=== PATIENT | female | born 1965 | race Caucasian/White ===

== ENCOUNTER → 2016-10-13 | Outpatient (CLI) | payer OTHER ==
[~2016-10-13] MED LIST: ACET-1311 PO; BENA20TA14 PO; BUTA1CAP17 PO; DICY20TA10 PO; FERR1TAB23 PO; FOLI1TAB7 PO; LAMO200T38 PO; LAMO25TA PO; LORA1TAB13 PO; MTR/600 PO; MULT-506 PO; OXYC-57 PO; PARO1TAB29 PO; PROM25TA9 PO; TOPI100T20 PO; TRAZ50TA35 PO
--- NOTE | 2016-10-13 12:07 | DIAGNOSTIC IMAGING REPORT ---
LEFT ANKLE 3 VIEWS HISTORY: LEFT ANKLE PAIN/FALL COMPARISON: None. FINDINGS: There is no fracture or dislocation. Soft tissues are unremarkable. No radiopaque foreign bodies. Plantar heel spur. IMPRESSION: No fractures. Electronically signed by: Braulio Vann M.D. 10/13/2016 12:06 PM Dictated Date/Time: 10/13/2016 12:03 PM
== END | disposition home or self-care (01) ==
LOC: C.RAD1850 11:51
PROVIDERS: ATTEND Student in an Organized Health Care Education/Training Program
DX: S99.912A Unspecified injury of left ankle, initial encounter (principal); X58.XXXA Exposure to other specified factors, initial encounter

== ENCOUNTER 2017-01-03 07:16 | Emergency (ER) | payer OTHER ==
[~2017-01-03] VITALS: Ht 167.6 cm; Wt 88.6 kg
[2017-01-03 07:22] VITALS: TEMP 36.5; Ht 167.6 cm; Wt 88.6 kg
[2017-01-03] MEDS ORDERED: ONDANSETRON INJ 2 MG/ML 2 ML VIAL IV STA (07:34)
[2017-01-03 07:45] LABS: BASO % 0.2 %; BASO ABS # 0.01 K/uL (0-0.2); COMPLETE YES; EOS % 1.2 %; HEMATOCRIT 39.3 % (37-47); IG% 0.2 %; LYMPH % 27.1 %; LYMPH ABS # 1.14 K/uL (1.2-3.4); MEAN CELL VOLUME 88.9 fL (80-100); MEAN CORPUSCULAR HEMOGLOBIN 29.6 pg (25-34); MEAN CORPUSCULAR HGB CONC 33.3 g/dl (32-36); MONO % 7.1 %; NEUT % 64.2 %; PLATELET COUNT 248 K/uL (130-400); RED BLOOD COUNT 4.42 M/uL (4.2-5.4)
[2017-01-03] MEDS ORDERED: SODIUM CHLORIDE 0.9% 1000ML 1,000 ML IV ONE (07:45)
[2017-01-03 07:53] LABS: URINE APPEARANCE CLEAR (CLEAR); URINE BILIRUBIN NEG (NEG); URINE COLOR YELLOW; URINE EPITHELIAL CELL AUTO >30 /lpf (0-5); URINE NITRITE NEG (NEG); URINE PH 5.5 (4.5-7.5); URINE SPECIFIC GRAVITY 1.021 (1.000-1.030); UROBILINOGEN NEG (NEG)
[2017-01-03 07:54] LABS: MANUAL MICROSCOPIC REQUIRED? NO; REVIEW REQ? YES
--- NOTE | 2017-01-03 07:58 | DIAGNOSTIC IMAGING REPORT ---
SINGLE VIEW CHEST CLINICAL HISTORY: Change in mental status. Vomiting. FINDINGS: An AP, portable, upright chest radiograph is compared to study dated 08/21/2015. The examination is degraded by portable technique and patient rotation. The cardiomediastinal silhouette is unremarkable. The lungs and pleural spaces are clear. No pneumothorax is seen. The bony thorax is grossly intact. IMPRESSION: No active disease in the chest. Electronically signed by: Florencio Roth M.D. 01/03/2017 7:57 AM Dictated Date/Time: 01/03/2017 7:57 AM
[2017-01-03 08:04] LABS: ALT/SGPT 21 U/L (12-78); BLOOD UREA NITROGEN 19 mg/dl (7-18); BUN/CREATININE RATIO 20.3 (10-20); CALCIUM 8.9 mg/dl (8.5-10.1); CARBON DIOXIDE 24 mmol/L (21-32); CHLORIDE 101 mmol/L (98-107); CREATININE 0.93 mg/dl (0.60-1.20); GLUCOSE 146 mg/dl (70-99); POTASSIUM 3.4 mmol/L (3.5-5.1); SODIUM 135 mmol/L (136-145)
[2017-01-03 08:07] LABS: ALKALINE PHOSPHATASE 78 U/L (45-117); AST/SGOT 16 U/L (15-37)
[2017-01-03 08:08] LABS: BENZODIAZEPINE, URINE NEG (NEG); COCAINE,URINE NEG (NEG); PHENCYCLIDINE, URINE NEG (NEG)
--- NOTE | 2017-01-03 08:16 | DIAGNOSTIC IMAGING REPORT ---
HEAD WITHOUT CONTRAST (CT) CLINICAL HISTORY: 51 years-old Female with AMS. Acute altered mental status TECHNIQUE: Multiple axial CT images of the head were obtained without contrast. A dose lowering technique was utilized adhering to the principles of ALARA. CT DOSE: 537.48 mGy.cm COMPARISON: Head CT 08/27/2014. FINDINGS: No acute intracranial hemorrhage, midline shift, mass, large territorial ischemia or abnormal extra-axial collection. 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 The calvarium is intact. The mastoid air cells, and middle ear cavities are clear. Polypoid mucosal thickening of the right maxillary antrum measures 3.5 x 1.8 cm. Metopic suture noted. IMPRESSION: 1. No acute intracranial abnormality. 2. Subependymal smith matter heterotopia. 3. Polypoid mucosal disease of the right maxillary sinus. The above report was generated using voice recognition software. It may contain grammatical, syntax or spelling errors. Electronically signed by: Brendon Garcia M.D. 01/03/2017 8:15 AM Dictated Date/Time: 01/03/2017 8:03 AM
--- NOTE | 2017-01-03 09:09 | EMERGENCY ROOM VISIT NOTE ---
ED Visit Note First contact with patient: 07:19 51-year-old female with altered mental status was fully evaluated by Elton Dorsey PA-C. Please see his note. I also independently evaluated the patient. Upon my evaluation the patient was clear and conversant. She admits that she may have taken too many anti-seizure medications. She believes that she just needs sleep. Multiple labs were evaluated. The patient may have a urinary tract infection.
[2017-01-03] MEDS ORDERED: ONDA4TAB10 SL (09:20)
[2017-01-03 09:29] VITALS: BP 155/101; PULSE 85; O2SAT 96
--- NOTE | 2017-01-03 10:59 | EMERGENCY ROOM VISIT NOTE ---
ED Visit Note First contact with patient: 07:19 Chief Complaint: Nausea and vomiting. History of Present Illness: Ms. Rutledge is a 51-year-old white female who was brought into the ED accompanied by her fianc with nausea and vomiting. Historically patient has a history of unspecified heart disease, hypertension, epilepsy/seizure disorder. Fianc reports patient has been feeling well and been her normal self over the last few days. Last night he reports he went to bed at approximately 11 PM and the patient was complaining of a headache. When he awoke this morning he went downstairs and found the patient lying on a recliner and complained of nausea. He reports he drove the patient into the ED and during his transport she had started to vomit but he reports she was holding his hand and talking to him. When the patient arrived in the emergency department I immediately saw her and she initially reported that she no longer had a headache but then reports that it was back and on the third attempt to ascertain if she was experiencing any headache she reported no. Her only complaint was nausea. She was only intermittently verbally communicative with me. I did note I left the room and came back to look at her EKG and when I arrived she was talking normally in a law soft speech with her fianc. There was question the patient had taken too much of her Lamictal; the bottle she presents with was from June 2016 and there were 10 tablets left in the bottle ; this medication was prescribed twice a day. On reevaluation patient was sitting upright and talking appropriately. She was pleasant and cooperative and reported resolution of nausea and vomiting. She confirms she is no longer having a headache and is feeling well. She has no other complaints and denies fevers, chills, sweats, upper respiratory tract symptoms, chest pain, shortness of breath, palpitations, abdominal pain, diarrhea, constipation, rectal bleeding, black/tarry stools, urinary symptoms, back pain, flank pain. Review of Systems: As noted above in History of Present Illness; all body systems were reviewed with the patient and found to be negative. Past Medical History: As noted above and migraine headaches, Lyme's disease and status post cholecystectomy. Current Medications: Medications Dose Route/Sig Max Daily Dose Days Date Category Dose Instructions Fioricet (Hddvshrwcw-Tokzmyneeniru-Mcwyb) 1 Cap Cap 1 Cap PO DAILY PRN 10/29/14 Reported Trazodone (Trazodone HCl) 50 Mg Tab 50 Mg PO HS 10/29/14 Reported Topamax (Topiramate) 100 Mg Tab 100 Mg PO BID 10/29/14 Reported Phenergan (Promethazine HCl) 25 Mg Tab 25 Mg PO Q6H PRN 10/29/14 Reported Paxil (Paroxetine HCl) 40 Mg Tab 40 Mg PO QAM 10/29/14 Reported Percocet 5MG/325MG (Oxycodone/Acetaminophen) Tab 1-2 Tablets PO Q4 PRN 10/29/14 Reported PAIN Lorazepam 1 Mg Tab 1 Tab PO BID PRN 30 10/29/14 Reported Lamictal (Lamotrigine) 200 Mg Tab 200 Mg PO BID 10/29/14 Reported Lamictal (Lamotrigine) 25 Mg Tab 75 Mg PO BID 10/29/14 Reported Folvite (Folic Acid) 1 Mg Tab 1 Mg PO QAM 10/29/14 Reported Dicyclomine Hcl 20 Mg Tab 1 Tab PO TID 10/29/14 Reported Lotensin (Benazepril HCl) 20 Mg Tab 20 Mg PO QAM 10/29/14 Reported Tylenol (Acetaminophen) 325 Mg Tab 650 Mg PO Q6 PRN 10/29/14 Reported Ibuprofen 600 Mg Tab 600 Mg PO UD PRN 08/27/14 Reported Iron (Ferrous Sulfate) Unknown Strength Tab Unknown Dose PO QPM 08/27/14 Reported Multivitamin (Multivitamins) Tab 1 Tab PO QAM 06/15/12 Reported Allergies to Medications: Erythromycin. Social History: Patient is not employed; she feels safe in her home environment ; she denies tobacco and alcohol use. Physical Examination: Vital Signs: Date Time Temp Pulse Resp B/P (MAP) Pulse Ox O2 Delivery O2 Flow Rate FiO2 01/03/17 09:29 85 16 155/101 96 01/03/17 08:07 81 14 161/101 98 01/03/17 07:27 77 01/03/17 07:22 36.5 75 24 173/112 96 Room Air GENERAL: 51-year-old female in no acute distress, nontoxic-appearing, afebrile and hemodynamically stable. NEUROLOGICAL: Patient's eyes were closed and she was intermittently verbally communicative and oriented to herself and fianc. Not answering questions. SKIN: Warm, dry and pink. No soft tissue eruptions or trauma noted. HEENT: Atraumatic and normocephalic. Skull: No bony deformity, crepitus, swelling or ecchymosis. No raccoon's eyes or can signs. No drainage from the ears of the nostril; no hemotympanum. No facial bony tenderness, swelling or ecchymosis. PERRLA. Sclera white and conjunctiva pink. No drainage from naris. Airway was patent. Pharynx is nonerythematous or edematous. Speech occasionally clear but mostly garbled. No lymphadenopathy. Trachea midline. No jugular venous distention. No carotid bruits. BACK: No tenderness over the bony spine. No nuchal rigidity or meningismus. THORAX: Lungs sounds are clear to auscultation and equal bilaterally with symmetrical chest wall. No wheezing, rales or rhonchi. HEART: Regular rate and rhythm. No gallops, rubs or murmurs are appreciated. ABDOMEN: Flat, soft and nontender. Positive bowel sounds in all quadrants. No guarding, rigidity or organomegaly. EXTREMITIES: Moves all extremities well on command and with purpose. All distal neurovascular statuses are intact and equal bilaterally. No calf tenderness or cords. ED Course: Patient is assessed as noted above. Patient's medication list was reviewed. Laboratory Testing: Test 01/03/17 07:24 01/03/17 07:27 01/03/17 07:30 01/03/17 07:34 Range/Units White Blood Count 4.20 4.8-10.8 K/uL Red Blood Count 4.42 4.2-5.4 M/uL Hemoglobin 13.1 12.0-16.0 g/dL Hematocrit 39.3 37-47 % Mean Corpuscular Volume 88.9 80-100 fL Mean Corpuscular Hemoglobin 29.6 25-34 pg Mean Corpuscular Hemoglobin Concent 33.3 32-36 g/dl Platelet Count 248 130-400 K/uL Mean Platelet Volume 9.0 7.4-10.4 fL Neutrophils (%) (Auto) 64.2 % Lymphocytes (%) (Auto) 27.1 % Monocytes (%) (Auto) 7.1 % Eosinophils (%) (Auto) 1.2 % Basophils (%) (Auto) 0.2 % Neutrophils # (Auto) 2.69 1.4-6.5 K/uL Lymphocytes # (Auto) 1.14 1.2-3.4 K/uL Monocytes # (Auto) 0.30 0.11-0.59 K/uL Eosinophils # (Auto) 0.05 0-0.5 K/uL Basophils # (Auto) 0.01 0-0.2 K/uL RDW Standard Deviation 43.8 36.4-46.3 fL RDW Coefficient of Variation 13.5 11.5-14.5 % Immature Granulocyte % (Auto) 0.2 % Immature Granulocyte # (Auto) 0.01 0.00-0.02 K/uL Sodium Level 135 136-145 mmol/L Potassium Level 3.4 3.5-5.1 mmol/L Chloride Level 101 98-107 mmol/L Carbon Dioxide Level 24 21-32 mmol/L Anion Gap 10.0 3-11 mmol/L Blood Urea Nitrogen 19 7-18 mg/dl Creatinine 0.93 0.60-1.20 mg/dl Est Creatinine Clear Calc Drug Dose 82.0 ml/min Estimated GFR () 83.6 Estimated GFR (Non- 72.2 BUN/Creatinine Ratio 20.3 10-20 Random Glucose 146 70-99 mg/dl Calcium Level 8.9 8.5-10.1 mg/dl Total Bilirubin 0.3 0.2-1 mg/dl Direct Bilirubin < 0.1 0-0.2 mg/dl Aspartate Amino Transf (AST/SGOT) 16 15-37 U/L Alanine Aminotransferase (ALT/SGPT) 21 12-78 U/L Alkaline Phosphatase 78 45-117 U/L Total Protein 9.3 6.4-8.2 gm/dl Albumin 4.1 3.4-5.0 gm/dl Bedside Troponin I < 0.030 0-0.045 ng/ml Bedside Glucose 148 70-90 mg/dl Urine Color YELLOW Urine Appearance CLEAR CLEAR Urine pH 5.5 4.5-7.5 Urine Specific Ione 1.021 1.000-1.030 Urine Protein NEG NEG Urine Glucose (UA) NEG NEG Urine Ketones NEG NEG Urine Occult Blood NEG NEG Urine Nitrite NEG NEG Urine Bilirubin NEG NEG Urine Urobilinogen NEG NEG Urine Leukocyte Esterase MODERATE NEG Urine WBC (Auto) 5-10 0-5 /hpf Urine RBC (Auto) 0-4 0-4 /hpf Urine Hyaline Casts (Auto) 1-5 0-5 /lpf Urine Epithelial Cells (Auto) >30 0-5 /lpf Urine Bacteria (Auto) 1+ NEG Urine Yeast (Auto) NONE PRSENT Urine Opiates Screen NEG NEG Urine Methadone, Qualitative NEG NEG Urine Barbiturates NEG NEG Urine Phencyclidine (PCP) Level NEG NEG Ur Amphetamine/Methamphetamine NEG NEG MDMA (Ecstasy) Screen NEG NEG Urine Benzodiazepines Screen NEG NEG Urine Cocaine Metabolite NEG NEG Urine Marijuana (THC) NEG NEG Urine Culture: Pending Chest X-Ray: Was reviewed by myself and read by the radiologist and shows no acute infiltrates, effusions or pneumothorax. Normal heart silhouette and bony anatomy. Head CT: Shows no acute intracranial abnormality, subependymal smith matter heterotopia, polypoid mucosal disease of the right maxillary sinus. Patient was hydrated with normal save saline and received 4 mg of Zofran IV for nausea/vomiting. Patient was reassessed multiple times during her stay in the emergency department. Patient's case was reviewed with Dr. Benavides; inability assessed the patient we agreed on diagnostic approach, treatment, disposition and plan Patient was educated about today's findings and instructed on her treatment plan ; she verbalized understanding and agreement with this plan. Clinical Impression: Vomiting. Transient altered mental status. Decision-Making: Initially my differential diagnosis I considered intracranial bleed, increased intercranial pressure, pancreatitis, pyelonephritis, medication reaction, medication overdose, and other causes. Disposition: Patient discharged home in stable condition accompanied by her fiance; prior to departure she was reassessed and subjectively reported that she was pain and symptom-free. Plan: Patient was encouraged to continue her current medications as prescribed. Patient was prescribed Zofran 4 mg every 6 hours as needed for nausea/vomiting. Patient was encouraged to stay well-hydrated with increased clear fluids. Patient is encouraged to bland diet for the next 48 hours. Patient was encouraged to contact her PCP and request follow-up care and treatment. Patient was encouraged return ED for return of nausea/vomiting, fevers, uncontrolled pain or any new/concerning symptoms.
== END 2017-01-03 09:30 | disposition home or self-care (01) ==
LOC: C.EDB 07:17
DX: R11.10 Vomiting, unspecified (principal); R41.82 Altered mental status, unspecified; I10 Essential (primary) hypertension; G40.909 Epilepsy, unspecified, not intractable, without status epilepticus; I51.9 Heart disease, unspecified; Z86.19 Personal history of other infectious and parasitic diseases; Z90.49 Acquired absence of other specified parts of digestive tract; Z88.3 Allergy status to other anti-infective agents; Z79.899 Other long term (current) drug therapy

== ENCOUNTER 2022-06-03 16:55 | Inpatient (IN) ==
--- NOTE | 2022-06-03 17:10 | ED Triage Note ---
Date of Service June 03, 2022 History of Present Illness This patient was briefly evaluated while in triage. An abbreviated physical exam was performed. This patient is a 56-year-old Female who presents to the ED for evaluation of had a tick bite one week ago-behind left knee c/o illness x 2 days, back and joint pain, fevers 102, vomiting can't keep fluids or meds down Seizure d/o, MCTD, Sjogrens,HTN, on a biologic Physical Exam GENERAL: Ill appearing, seated in a wheelchair, hypotensive, T37.8 CARDIOVASCULAR: tachycardic RESPIRATORY: CTA ABDOMEN: BS x 4. Nontender to palpation. Initial orders for labs and / or imaging were placed and patient was placed in the waiting area until a bed is available. Please see further documentation for the full ED course.
[2022-06-03] MEDS ORDERED: KETOROLAC TROMETHAMINE 15 MG/ML VIAL IV STA (17:22)
[2022-06-03] MEDS ORDERED: SODIUM CHLORIDE 0.9% 1000ML 1,000 ML IV ONE ×2 (17:22→17:25)
--- NOTE | 2022-06-03 17:22 | Emergency Department Note ---
ED Provider Note History of Present Illness Chief Complaint: Fever Stated Complaint: TICK BITE A WK AGO,LETHARGIC,FEVER,BODY ACHES Time Seen by Provider: 06/03/22 17:18 Source: patient Mode of arrival: ambulatory Limitations: no limitations This patient is a 56-year-old female who presents to the emergency department for evaluation of fever, body aches and vomiting. She reports that she was bit by a tick 2 weeks ago and was unable to remove the entire tick at that time. She did notice a bull's-eye rash in the area of the tick bite. 2 days ago, she developed vomiting, body aches, fevers and joint swelling. She reports she is noticing the swelling in her hands and ankles. She reports that she has burning with urination and describes this as feeling hot. She is very nauseous and has been unable to keep anything down including her medications. She reports that her pain is primarily in her low back into her hips and down her legs. Home Medications Medication Instructions Recorded Confirmed Type hydrocodone 5 mg-acetaminophen 325 1 tab PO Q8H PRN Pain 02/23/19 06/03/22 Hist ory mg tablet losartan 50 mg-hydrochlorothiazide 1 tab PO QAM 02/23/19 06/03/22 History 12.5 mg tablet multivitamin (Daily Multi-Vitamin 1 tab PO QAM 02/23/19 06/03/22 History tablet) lamotrigine 25 mg disintegrating 25 mg PO DAILY PRN aura, anxiety 06/19/20 06/03/22 Rx tablet 30 days #30 tabs baclofen 10 mg tablet 10 mg PO BID PRN muscle spasm #60 05/18/21 06/03/22 Rx tabs oxcarbazepine 300 mg tablet 300 mg PO BID #60 tabs 08/18/21 06/03/22 Rx (Trileptal) galcanezumab-gnlm 120 mg/mL 120 mg subcut MONTHLY #1 mL 01/12/22 06/03/22 Rx subcutaneous pen injector (Emgality Pen) lamotrigine 150 mg tablet 300 mg PO BID 90 days #360 tabs 02/18/22 06/03/22 Rx gabapentin 300 mg capsule 300 mg PO TID 03/22/22 06/03/22 History lorazepam 0.5 mg tablet 0.5 mg PO DAILY PRN Anxiety 03/22/22 06/03/22 History omeprazole 20 mg capsule,delayed 20 mg PO QAM 03/22/22 06/03/22 History release ondansetron 4 mg disintegrating 4 mg translingual TID PRN nausea 03/22/22 06/03/22 History tablet and vomiting sertraline 100 mg tablet 100 mg PO QAM 03/22/22 06/03/22 History tofacitinib 11 mg tablet,extended 11 mg PO HS 03/22/22 06/03/22 History release 24 hr (Xeljanz XR) rizatriptan 10 mg tablet (Maxalt) 10 mg PO UD PRN migraine headache 05/12/22 06/03/22 History Allergies Allergy/AdvReac Type Severity Reaction Status Date / Time erythromycin base Allergy Intermediate RASH Verified 06/03/22 18:28 Past Med/Surg History Medical History Anemia hx Depression with anxiety Epilepsy most recent seizure 03/2021 History of COVID-19 09/2021, home test, tx w/paxlovid>resolved Hypertension Migraine without aura, not intractable, without status migrainosus Mixed connective tissue disease Raynauds disease Sjogren's disease Surgical History History of esophagogastroduodenoscopy (EGD) History of hysteroscopy Hx laparoscopic cholecystectomy Hx of colonoscopy S/P tubal ligation Family History Sister Myocardial infarction Father Myocardial infarction Denies family history of Ovarian cancer Prostate cancer Breast cancer Colorectal cancer Social History Smoking Status: Never smoker Second Hand Exposure: No; Do You Dip or Chew Tobacco: No; Hx Alcohol Use: No Hx Substance Use: No Preferred Language: Kinyarwanda Communication Ability: Effective Insurance Sales Executive Required: No Beliefs That Will Affect Care: None Current Living Situation: Alone Feels Safe at Home: Yes Assistive Devices: Denture - Upper and Denture - Lower Physical Exam Vital Signs Vital Signs - 24 hr 06/03/22 17:07 06/03/22 18:00 06/03/22 18:24 Temperature 37.8 C H Temperature Source Oral Pulse Rate 104 H Pulse Rate [Apical] 95 H Pulse Rate from SpO2 Sensor Respiratory Rate 20 22 Respiratory Effort / Characteristics Non-Labored Spontaneous Respiratory Depth Normal Respiratory Pattern Regular Blood Pressure 94/61 L Blood Pressure [Left Arm] 113/65 Blood Pressure Mean 72 Blood Pressure Mean [Left Arm] 81 Pulse Oximetry 93 93 Oxygen Delivery Method Room Air Room Air Room Air Oxygen Flow Rate Sepsis Recent Fever Within 48 Hours Yes Sepsis New/Unexplained Change in Mental Status No Sepsis Action Taken by Nursing Physician Notified 06/03/22 18:09 06/03/22 18:30 06/03/22 19:00 Temperature Temperature Source Pulse Rate 94 H 91 H 90 Pulse Rate [Apical] Pulse Rate from SpO2 Sensor 94 H 91 H 91 H Respiratory Rate 26 H 23 22 Respiratory Effort / Characteristics Respiratory Depth Respiratory Pattern Blood Pressure Blood Pressure [Left Arm] Blood Pressure Mean Blood Pressure Mean [Left Arm] Pulse Oximetry 92 95 92 Oxygen Delivery Method Room Air Oxygen Flow Rate Sepsis Recent Fever Within 48 Hours Sepsis New/Unexplained Change in Mental Status Sepsis Action Taken by Nursing 06/03/22 19:02 06/03/22 19:30 06/03/22 20:00 Temperature Temperature Source Pulse Rate 91 H 91 H Pulse Rate [Apical] Pulse Rate from SpO2 Sensor 90 93 H 91 H Respiratory Rate 21 18 Respiratory Effort / Characteristics Respiratory Depth Respiratory Pattern Blood Pressure 97/61 L 95/60 L Blood Pressure [Left Arm] Blood Pressure Mean 73 71 Blood Pressure Mean [Left Arm] Pulse Oximetry 94 90 92 Oxygen Delivery Method Oxygen Flow Rate Sepsis Recent Fever Within 48 Hours Sepsis New/Unexplained Change in Mental Status Sepsis Action Taken by Nursing 06/03/22 20:02 06/03/22 20:19 06/03/22 20:30 Temperature Temperature Source Pulse Rate 88 88 85 Pulse Rate [Apical] Pulse Rate from SpO2 Sensor 88 87 87 Respiratory Rate 14 17 Respiratory Effort / Characteristics Respiratory Depth Respiratory Pattern Blood Pressure 97/59 L Blood Pressure [Left Arm] Blood Pressure Mean 71 Blood Pressure Mean [Left Arm] Pulse Oximetry 90 96 97 Oxygen Delivery Method Nasal Cannula Oxygen Flow Rate 2 Sepsis Recent Fever Within 48 Hours Sepsis New/Unexplained Change in Mental Status Sepsis Action Taken by Nursing VITALS: Vitals are noted on the nurse's note and reviewed by myself. GENERAL: This is a 56-year-old female, ill-appearing, lying flat in bed. SKIN: The skin was without rashes. EARS: External auditory canals clear, tympanic membranes pearly smith without erythema or effusion bilaterally. EYES: Pupils equal round and reactive to light and accommodation. MOUTH: Mucous membranes moist. Tonsils are not enlarged. Petechiae noted in the posterior oropharynx. NECK: Supple without nuchal rigidity. No lymphadenopathy. HEART: Regular rate and rhythm without murmurs gallops or rubs. LUNGS: Clear to auscultation bilaterally without wheezes, rales or rhonchi. No retractions or accessory muscle use. ABDOMEN: Positive bowel sounds x 4. Soft, nontender to palpation. No guarding or rebound tenderness. NEURO: Patient was alert and oriented to person place and time. Course Administered Medications Diclofenac Sodium (Diclofenac Sod 1% Gel 100 Gm Tube) 2 gm EXT TID ARPITA; Protocol Stop: 07/03/22 22:23 Last Admin: 06/03/22 23:24 Dose: 2 gm Documented By: JINA Gabapentin (Gabapentin 300 Mg Cap) 300 mg PO TID ARPITA Stop: 07/03/22 22:23 Last Admin: 06/03/22 23:26 Dose: 300 mg Documented By: JINA Potassium Chloride/Dextrose/Sod Cl (D5w And 1/2nss + 20meq Kcl) 20 meq in 1,000 mls @ 125 mls/hr IV .Q8H [facility]; Protocol Stop: 07/03/22 22:23 Last Admin: 06/03/22 23:29 Dose: 125 mls/hr Documented By: JINA Lamotrigine (Lamotrigine 100 Mg Tab) 300 mg PO BID ARPITA Stop: 07/03/22 22:23 Last Admin: 06/03/22 23:24 Dose: 300 mg Documented By: JINA Lidocaine (Lidocaine 5% 1 Patch) 1 patch TD QPM ARPITA Stop: 07/03/22 22:59 Last Admin: 06/03/22 23:28 Dose: 1 patch Documented By: JINA Oxcarbazepine (Oxcarbazepine 150 Mg Tablet) 300 mg PO BID ARPITA Stop: 07/03/22 22:23 Last Admin: 06/03/22 23:25 Dose: 300 mg Documented By: JINA Discontinued Medications Doxycycline Hyclate (Doxycycline Hyclate 100 Mg Cap) 100 mg PO NOW STA Stop: 06/03/22 19:38 Last Admin: 06/03/22 20:15 Dose: 100 mg Documented By: NHUNG Sodium Chloride (Nss 1000ml) 1,000 mls @ 999 mls/hr IV .Q1H1M ONE Stop: 06/03/22 18:22 Last Infusion: 06/03/22 19:14 Dose: 0 mls/hr Documented By: Admin: 06/03/22 18:06 Dose: 999 mls/hr Documented By: KARISSA Sodium Chloride (Nss 1000ml) 1,000 mls @ 999 mls/hr IV .Q1H1M ONE Stop: 06/03/22 18:25 Last Infusion: 06/03/22 19:14 Dose: 0 mls/hr Documented By: Admin: 06/03/22 18:06 Dose: 999 mls/hr Documented By: KARISSA Promethazine HCl (Phenergan) 12.5 mg in 50.5 mls @ 202 mls/hr IV NOW STA Stop: 06/03/22 19:36 Last Infusion: 06/03/22 20:07 Dose: 0 mls/hr Documented By: Admin: 06/03/22 19:32 Dose: 202 mls/hr Documented By: NHUNG Acetaminophen (Ofirmev) 1,000 mg in 100 mls @ 400 mls/hr IV NOW STA Stop: 06/03/22 19:36 Last Infusion: 06/03/22 19:55 Dose: 0 mls/hr Documented By: Admin: 06/03/22 19:28 Dose: 400 mls/hr Documented By: NHUNG Ceftriaxone Sodium (Rocephin) 2,000 mg in 70 mls @ 140 mls/hr IV NOW STA Stop: 06/03/22 20:06 Last Infusion: 06/03/22 20:48 Dose: 0 mls/hr Documented By: Admin: 06/03/22 20:15 Dose: 140 mls/hr Documented By: NHUNG Ketorolac Tromethamine (Ketorolac Tromethamine 15 Mg/Ml Vial) 15 mg IV NOW STA Stop: 06/03/22 17:23 Last Admin: 06/03/22 18:08 Dose: 15 mg Documented By: KARISSA Ondansetron HCl (Ondansetron Inj 2 Mg/Ml 2 Ml Vial) 4 mg IV NOW STA Stop: 06/03/22 17:26 Last Admin: 06/03/22 18:08 Dose: 4 mg Documented By: KARISSA Medical Decision Making Differential Diagnosis Tickborne illness, viral syndrome, otitis, pharyngitis, pneumonia, influenza, meningitis, urinary tract infection, sepsis, bacteremia, as well as other patho logies. Home Medications was personally reviewed by me Laboratory Data Attestation: I reviewed the patient's lab results. 06/03/22 17:36 06/03/22 17:36 Lab Results 06/03/22 06/03/22 06/03/22 Range/Units 17:10 17:11 17:36 WBC 2.63 L (4.8-10.8) K/ul RBC 4.05 L (4.20-5.40) M/uL Hgb 11.5 L (12.0-16.0) g/dl Hct 34.8 L (37.0-47.0) % MCV 85.9 (80.0-100.0) fL MCH 28.4 (25.0-34.0) pg MCHC 33.0 (32.0-36.0) g/dL RDW Std Deviation 42.3 (36.4-46.3) fL RDW Coeff of [place] 13.5 (11.5-14.5) % Plt Count 164 (130-400) K/uL MPV 9.5 (9.4-12.4) fL Immature Gran % (Auto) 0.0 % Neut % (Auto) 70.8 % Lymph % (Auto) 20.5 % [place] % (Auto) 8.7 % Eos % (Auto) 0.0 % Baso % (Auto) 0.0 % Neut # (Auto) 1.86 (1.40-6.50) K/uL Lymph # (Auto) 0.54 L (1.2-3.4) K/uL [place] # (Auto) 0.23 (0.11-0.59) K/uL Eos # (Auto) 0.00 (0-0.50) K/uL Baso # (Auto) 0.00 (0-0.2) K/uL Immature Gran # (Auto) 0.00 L (0.01-0.20) K/uL Ovalocytes 1+ ESR (0-30) mm/hr Sodium (136-145) mmol/L Potassium (3.5-5.1) mmol/L Chloride (98-107) mmol/L Carbon Dioxide (21-32) mmol/L Anion Gap (3-11) BUN (6-23) mg/dl Creatinine (0.6-1.2) mg/dl Est Cr Clr Drug Dosing Est GFR ( Amer) ml/min Est GFR (Non-Af Amer) ml/min BUN/Creatinine Ratio (10-20) Glucose (70-99(Fasting)) mg/dl Lactate (0.4-2.0) mmol/L Calcium (8.6-10.3) mg/dl Magnesium (1.7-2.4) mg/dl Total Bilirubin (0.2-1.0) mg/dl AST (13-39) U/L ALT (7-52) U/L Alkaline Phosphatase (34-104) U/L Troponin I High Sens (0-14) pg/ml C-Reactive Protein Cancelled Total Protein (6.0-8.3) gm/dl Albumin (3.4-5.0) gm/dl Globulin (2.5-4.0) gm/dl Albumin/Globulin Ratio (0.9-2) Procalcitonin Cancelled Urine Color Urine Appearance (Clear) Urine pH (4.5-7.5) Ur Specific [place] (1.000-1.030) Urine Protein (Negative) Urine Glucose (UA) (Negative) Urine Ketones (Negative) Urine Blood (Negative) Urine Nitrite (Negative) Urine Bilirubin (Negative) Urine Urobilinogen (Negative) Ur Leukocyte Esterase (Negative) Urine WBC (Auto) (0-5) /hpf Urine RBC (Auto) (0-4) /hpf U Hyaline Cast (Auto) (0-5) /lpf U Epithel Cells (Auto) (0-5) /lpf Urine Bacteria (Auto) (Negative) Ur Renal Epithelial Cell (0-5) /lpf Anaplasma Smear See Comment Babesia Smear See Comment Lyme Disease IgG Ab (Negative) Lyme Disease IgM Ab (Negative) SARS-CoV-2 (PCR) (Negative) Influenza Type A (PCR) (Neg) Influenza Type B (PCR) (Neg) RSV (RT-PCR) (Neg) 06/03/22 06/03/22 06/03/22 Range/Units 17:36 17:36 17:36 WBC (4.8-10.8) K/ul RBC (4.20-5.40) M/uL Hgb (12.0-16.0) g/dl Hct (37.0-47.0) % MCV (80.0-100.0) fL MCH (25.0-34.0) pg MCHC (32.0-36.0) g/dL RDW Std Deviation (36.4-46.3) fL RDW Coeff of [place] (11.5-14.5) % Plt Count (130-400) K/uL MPV (9.4-12.4) fL Immature Gran % (Auto) % Neut % (Auto) % Lymph % (Auto) % [place] % (Auto) % Eos % (Auto) % Baso % (Auto) % Neut # (Auto) (1.40-6.50) K/uL Lymph # (Auto) (1.2-3.4) K/uL [place] # (Auto) (0.11-0.59) K/uL Eos # (Auto) (0-0.50) K/uL Baso # (Auto) (0-0.2) K/uL Immature Gran # (Auto) (0.01-0.20) K/uL Ovalocytes ESR 26 (0-30) mm/hr Sodium 137 (136-145) mmol/L Potassium 3.1 L (3.5-5.1) mmol/L Chloride 104 (98-107) mmol/L Carbon Dioxide 27 (21-32) mmol/L Anion Gap 6 (3-11) BUN 22 (6-23) mg/dl Creatinine 1.14 (0.6-1.2) mg/dl Est Cr Clr Drug Dosing Not Reportable Est GFR ( Amer) 63.1 ml/min Est GFR (Non-Af Amer) 54.5 ml/min BUN/Creatinine Ratio 19.3 (10-20) Glucose 142 H (70-99(Fasting)) mg/dl Lactate (0.4-2.0) mmol/L Calcium 9.0 (8.6-10.3) mg/dl Magnesium 1.9 (1.7-2.4) mg/dl Total Bilirubin 0.5 (0.2-1.0) mg/dl AST 20 (13-39) U/L ALT 11 (7-52) U/L Alkaline Phosphatase 72 (34-104) U/L Troponin I High Sens 44.0 H (0-14) pg/ml C-Reactive Protein 7.53 H Total Protein 7.7 (6.0-8.3) gm/dl Albumin 4.0 (3.4-5.0) gm/dl Globulin 3.7 (2.5-4.0) gm/dl Albumin/Globulin Ratio 1.1 (0.9-2) Procalcitonin 0.10 Urine Color Urine Appearance (Clear) Urine pH (4.5-7.5) Ur Specific [place] (1.000-1.030) Urine Protein (Negative) Urine Glucose (UA) (Negative) Urine Ketones (Negative) Urine Blood (Negative) Urine Nitrite (Negative) Urine Bilirubin (Negative) Urine Urobilinogen (Negative) Ur Leukocyte Esterase (Negative) Urine WBC (Auto) (0-5) /hpf Urine RBC (Auto) (0-4) /hpf U Hyaline Cast (Auto) (0-5) /lpf U Epithel Cells (Auto) (0-5) /lpf Urine Bacteria (Auto) (Negative) Ur Renal Epithelial Cell (0-5) /lpf Anaplasma Smear Babesia Smear Lyme Disease IgG Ab Positive A (Negative) Lyme Disease IgM Ab Equivocal A (Negative) SARS-CoV-2 (PCR) (Negative) Influenza Type A (PCR) (Neg) Influenza Type B (PCR) (Neg) RSV (RT-PCR) (Neg) 06/03/22 06/03/22 06/03/22 Range/Units 17:36 18:14 20:02 WBC (4.8-10.8) K/ul RBC (4.20-5.40) M/uL Hgb (12.0-16.0) g/dl Hct (37.0-47.0) % MCV (80.0-100.0) fL MCH (25.0-34.0) pg MCHC (32.0-36.0) g/dL RDW Std Deviation (36.4-46.3) fL RDW Coeff of [place] (11.5-14.5) % Plt Count (130-400) K/uL MPV (9.4-12.4) fL Immature Gran % (Auto) % Neut % (Auto) % Lymph % (Auto) % [place] % (Auto) % Eos % (Auto) % Baso % (Auto) % Neut # (Auto) (1.40-6.50) K/uL Lymph # (Auto) (1.2-3.4) K/uL [place] # (Auto) (0.11-0.59) K/uL Eos # (Auto) (0-0.50) K/uL Baso # (Auto) (0-0.2) K/uL Immature Gran # (Auto) (0.01-0.20) K/uL Ovalocytes ESR (0-30) mm/hr Sodium (136-145) mmol/L Potassium (3.5-5.1) mmol/L Chloride (98-107) mmol/L Carbon Dioxide (21-32) mmol/L Anion Gap (3-11) BUN (6-23) mg/dl Creatinine (0.6-1.2) mg/dl Est Cr Clr Drug Dosing Est GFR ( Amer) ml/min Est GFR (Non-Af Amer) ml/min BUN/Creatinine Ratio (10-20) Glucose (70-99(Fasting)) mg/dl Lactate 1.1 (0.4-2.0) mmol/L Calcium (8.6-10.3) mg/dl Magnesium (1.7-2.4) mg/dl Total Bilirubin (0.2-1.0) mg/dl AST (13-39) U/L ALT (7-52) U/L Alkaline Phosphatase (34-104) U/L Troponin I High Sens (0-14) pg/ml C-Reactive Protein Total Protein (6.0-8.3) gm/dl Albumin (3.4-5.0) gm/dl Globulin (2.5-4.0) gm/dl Albumin/Globulin Ratio (0.9-2) Procalcitonin Urine Color Dark Yellow Urine Appearance Cloudy A (Clear) Urine pH 6.5 (4.5-7.5) Ur Specific [place] 1.029 (1.000-1.030) Urine Protein Trace H (Negative) Urine Glucose (UA) Negative (Negative) Urine Ketones Trace H (Negative) Urine Blood Negative (Negative) Urine Nitrite Positive A (Negative) Urine Bilirubin Negative (Negative) Urine Urobilinogen Negative (Negative) Ur Leukocyte Esterase Trace H (Negative) Urine WBC (Auto) 5-10 H (0-5) /hpf Urine RBC (Auto) 0-4 (0-4) /hpf U Hyaline Cast (Auto) 5-10 H (0-5) /lpf U Epithel Cells (Auto) >30 H (0-5) /lpf Urine Bacteria (Auto) 4+ H (Negative) Ur Renal Epithelial Cell 0-5 (0-5) /lpf Anaplasma Smear Babesia Smear Lyme Disease IgG Ab (Negative) Lyme Disease IgM Ab (Negative) SARS-CoV-2 (PCR) NEGATIVE (Negative) Influenza Type A (PCR) Negative (Neg) Influenza Type B (PCR) Negative (Neg) RSV (RT-PCR) Negative (Neg) Imaging Data Attestation: I personally reviewed and interpreted this imaging study as follows: Radiologist's Impression: Chest X-Ray 06/03/22 17:11 SINGLE VIEW CHEST CLINICAL HISTORY: Sepsis. FINDINGS: An AP, portable, upright chest radiograph is compared to study dated 03/22/2022. Correlation is made with chest CT dated 129 and 13. The cardiomediastinal silhouette is top normal for projection. There is mild elevation of the right hemidiaphragm and dependent atelectasis. The lungs and pleural spaces are otherwise clear. No pneumothorax is seen. There is chronic deformity of the right-sided ribs. IMPRESSION: No active disease in the chest. ACT 112: Negative or not required by law. Electronically signed by: Florencio Roth M.D. 06/03/2022 5:48 PM ECG Data Attestation: I personally reviewed and interpreted this ECG as follows: Indication: + weakness Rate (beats per minute): 97 Rhythm: + sinus rhythm ECG Intervals/blocks: + Left anterior fascicular block and + Right Bundle branch block ECG ST segments: + T-wave inversions Change: the following changes noted (TWI noted) MDM Narrative Continuous monitor worker: Order was placed for continuous monitor worker. Patient was placed on the monitor worker. Patient was noted to be in sinus tachycardia at an initial rate of 103 bpm. The patient is a 56-year-old female who presents today complaining of illness. Patient found to be hypotensive and tachycardic on exam consistent with sepsis. Labs revealed a leukopenia which would be consistent with a tickborne illness. She is mildly anemic with a hemoglobin of 11.5. There are no concerning electrolyte abnormalities, kidney function within normal limits. CRP is elevated at 7.53, troponin elevated at 44. Procalcitonin was within normal limits. Urinalysis was suggestive of infection, positive nitrite and 4+ bacteria. Patient's Lyme testing was positive. Initial smear for anaplasmosis and babesiosis are negative, however further testing is pending. Patient given a dose of ceftriaxone and doxycycline. She was given fluid resuscitation at 30 mL/kg based on her ideal body weight. Patient was given Zofran, Toradol, Phenergan and IV Tylenol for his symptoms. Case was discussed with the [facility] hospitalist service, who agreed to evaluate the patient for further care. Impression Sepsis, Lyme disease, acute, UTI (urinary tract infection) Discharge Plan Visit Data Chief Complaint: Fever Stated Complaint: TICK BITE A WK AGO,LETHARGIC,FEVER,BODY ACHES ED Provider: Karthik Balbuena ED Midlevel Provider: Karina Leon Discharge Problem: Sepsis, Lyme disease, acute, UTI (urinary tract infection) Patient Disposition: Admitted As Inpatient Discharge Instructions Interventions: ED Discharge Assessment Last Done: 06/03/22 22:07
[2022-06-03] MEDS ORDERED: ONDANSETRON INJ 2 MG/ML 2 ML VIAL IV STA (17:25)
--- NOTE | 2022-06-03 17:49 | XRay Report ---
SINGLE VIEW CHEST CLINICAL HISTORY: Sepsis. FINDINGS: An AP, portable, upright chest radiograph is compared to study dated 03/22/2022. Correlation is made with chest CT dated 129 and 13. The cardiomediastinal silhouette is top normal for projectio n. There is mild elevation of the right hemidiaphragm and dependent atelectasis. The lungs and pleura l spaces are otherwise clear. No pneumothorax is seen. There is chronic deformity of the right-sided ribs. IMPRESSION: No active disease in the chest. ACT 112: Negative or not required by law. Electronically signed by: Florencio Roth M.D. 06/03/2022 5:48 PM
[2022-06-03 18:03] LABS: Hematocrit (blood only) 34.8 % (37.0-47.0); Hemoglobin 11.5 g/dl (12.0-16.0); Mean Corpuscular Hemoglobin 28.4 pg (25.0-34.0); Mean Corpuscular Volume 85.9 fL (80.0-100.0); Mean Platelet Volume 9.5 fL (9.4-12.4); Platelet Count 164 K/uL (130-400); RDW Coefficient of Variation 13.5 % (11.5-14.5); RDW Standard Deviation 42.3 fL (36.4-46.3); Red Blood Count 4.05 M/uL (4.20-5.40); White Blood Count 2.63 K/ul (4.8-10.8)
[2022-06-03 18:16] LABS: Alanine Aminotransferase 11 U/L (7-52); Albumin Globulin Ratio 1.1 (0.9-2); Alkaline Phosphatase 72 U/L (34-104); Anion Gap 6 (3-11); Aspartate Aminotransferase 20 U/L (13-39); BUN Creatinine Ratio 19.3 (10-20); Bilirubin,Total 0.5 mg/dl (0.2-1.0); Blood Urea Nitrogen 22 mg/dl (6-23); C Reactive Protein 7.53 mg/dl (0-0.5); Carbon Dioxide 27 mmol/L (21-32); Chloride 104 mmol/L (98-107); Est GFR (African American) 63.1 ml/min; Est GFR (Non-African American) 54.5 ml/min; Globulin 3.7 gm/dl (2.5-4.0); Glucose 142 mg/dl (70-99(Fasting)); Magnesium 1.9 mg/dl (1.7-2.4); Potassium 3.1 mmol/L (3.5-5.1); Sodium 137 mmol/L (136-145); Total Protein 7.7 gm/dl (6.0-8.3)
[2022-06-03 18:33] LABS: Lymphocytes # (auto) 0.54 K/uL (1.2-3.4); Lymphocytes % (auto) 20.5 %; Monocytes # (auto) 0.23 K/uL (0.11-0.59); Monocytes % (auto) 8.7 %; Neutrophils # (auto) 1.86 K/uL (1.40-6.50); Neutrophils % (auto) 70.8 %; Ovalocytes 1+
[2022-06-03 18:39] LABS: Lyme Ab IgG w/WB Rflx Positive (Negative)
[2022-06-03 18:40] LABS: Lyme Ab IgM w/WB Rflx Equivocal (Negative)
[2022-06-03 19:01] LABS: Influenza A virus by PCR Negative (Neg); Influenza B virus by PCR Negative (Neg); RSV by PCR Negative (Neg); SARS CoV2 RNA(COVID-19) Ceph NEGATIVE (Negative)
[2022-06-03] MEDS ORDERED: PROMETHAZINE 12.5 MG/50.5 ML BAG IV STA (19:22)
[2022-06-03] MEDS ORDERED: ACETAMINOPHEN 1,000 MG/100 ML VIAL IV STA (19:22)
[2022-06-03] MEDS ORDERED: cefTRIAXone SODIUM 2,000 MG/70 ML BAG IV STA (19:37)
[2022-06-03] MEDS ORDERED: DOXYCYCLINE HYCLATE 100 MG CAP PO STA (19:37)
--- NOTE | 2022-06-03 20:08 | History & Physical Report ---
Date of Service June 03, 2022 Assessment & Plan (1) Lyme disease, acute: Plan: 56 year old F w/ PmHx Grand mal seizures, sjogren's, migraine without aura, HTN, depression and anxiety admitted for sepsis with positive Lyme and UA. Sepsis with Fevers, Nausea/Vomiting: -WBC 2.63, lactate 1.1, Trop 44, CRP 7.53. -101-103.1F temp at home, BP 90's/50's in the ED. -Lyme IgG positive, IgM equivocal. Anaplasma and Babesia smear negative however will wait for anaplasma and Babesia DNA. -UA positive for LE, Nitrite, 4+ bacteria, epithelial cells - iNfEcTeD uRiNaLySiS -CXR negative. -Possible source of sepsis from lyme vs UTI. -Given CTX 1g x1 in ED as well as dose of 100mg PO doxycycline. -Continue Doxycycline PO 100mg BID if patient can tolerate. -IV Zofran 4mg q6h for nausea. Tylenol PRN for fever and pain. -mIVF D5/0.5NSS w/ 20meq KCl. -Trend daily CBC, BMP, CRP. -Continue to monitor in PCU. Seizure: -History of seizure with patient unable to take lamotrigine or medications for past 2 days. -Will attempt to give orally again pending patient's nausea. -Continue home anti-seizure medications. Lower Back/Sciatic pain: -History of sciatic pain follows with Dr. Beauchamp in the outpatient setting for. -On hydrocodone-acetaminophen, gabapentin and Baclofen at home. -Will hold in the setting of low blood pressures. -Pain management with Tylenol PRN and lidocaine patch. -May restart pain meds/baclofen when BP improve - most likely will improve with hydration. HTN/Hypokalemia: -Hold home losartan-hydrochlorothiazide while BP low. Continue fluid resuscitation with D5/.5NSS w/ 20meq KCl Migraine w/o aura: -Continue home medications. F/E/N/GI: Clears, will advance as tolerated. DVT Prophylaxis: Lovenox 40mg qAM. Code status: Full code. Dispo: PCU. (2) Seizure: (3) Sjogren's disease: (4) Hypertension: (5) Depression with anxiety: (6) Migraine without aura, not intractable, without status migrainosus: (7) Epilepsy: (8) Abnormal urinalysis: History of Present Illness Chief Complaint: Fevers, nausea, vomiting Primary Care Provider: Elan Beauchamp DO Joy is a 56 year old female w/ PmHx Gran mal seizures, sjogren's, migraine without aura, HTN, depression and anxiety who presents to the ED after telehealth visit with family practice for fevers, nausea, vomiting. Patient lives in [facility]. Patient stated that 1.5 weeks prior she had a tick she found on her in the middle of the night as she was going to the bathroom. The tick was located at her L posterior thigh near the popliteal fossa. She attempted to do a blind sweep removal of the tick but had only gotten half of it off. Her boyfriend the next morning and tried to remove the remainder. Later on she developed a Bullseye rash at the area of the bite. 2 days ago she started to develop fevers, chills, nausea. Her fevers ranged from 101 to 103.1F. She also developed L wrist and L ankle pain and swelling. She developed vomiting with this as well and scheduled a telehealth appointment with her family practice at [facility] earlier today. They had directed her to come to the ED due to not being able to keep anything down. Patient is concerned with not being able to keep her lamotrigine down as she is vulnerable to getting her gran mal seizures without taking it and has been unable to take for the past 2 days due to the nausea. She states she also has hot sensation at the urethra with urination. In the ED she was found to be Lyme IgG positive, IgM equivicol. WBC 2.63, Hgb 11.5, Trop 44.0, CRP 7.53. UA Positive Nitrite and LE, +4 Bacteria. CXR clear without any acute processes. Allergies Allergy/AdvReac Type Severity Reaction Status Date / Time erythromycin base Allergy Intermediate RASH Verified 06/03/22 18:28 Home Medications Medication Instructions Recorded Confirmed Type hydrocodone 5 mg-acetaminophen 325 1 tab PO Q8H PRN Pain 02/23/19 06/03/22 History mg tablet losartan 50 mg-hydrochlorothiazide 1 tab PO QAM 02/23/19 06/03/22 History 12.5 mg tablet multivitamin (Daily Multi-Vitamin 1 tab PO QAM 02/23/19 06/03/22 History tablet) lamotrigine 25 mg disintegrating 25 mg PO DAILY PRN aura, anxiety 06/19/20 06/03/22 Rx tablet 30 days #30 tabs baclofen 10 mg tablet 10 mg PO BID PRN muscle spasm #60 05/18/21 06/03/22 Rx tabs oxcarbazepine 300 mg tablet 300 mg PO BID #60 tabs 08/18/21 06/03/22 Rx (Trileptal) galcanezumab-gnlm 120 mg/mL 120 mg subcut MONTHLY #1 mL 01/12/22 06/03/22 Rx subcutaneous pen injector (Emgality Pen) lamotrigine 150 mg tablet 300 mg PO BID 90 days #360 tabs 02/18/22 06/03/22 Rx gabapentin 300 mg capsule 300 mg PO TID 03/22/22 06/03/22 History lorazepam 0.5 mg tablet 0.5 mg PO DAILY PRN Anxiety 03/22/22 06/03/22 History omeprazole 20 mg capsule,delayed 20 mg PO QAM 03/22/22 06/03/22 History release ondansetron 4 mg disintegrating 4 mg translingual TID PRN nausea 03/22/22 06/03/22 History tablet and vomiting sertraline 100 mg tablet 100 mg PO QAM 03/22/22 06/03/22 History tofacitinib 11 mg tablet,extended 11 mg PO HS 03/22/22 06/03/22 History release 24 hr (Xeljanz XR) rizatriptan 10 mg tablet (Maxalt) 10 mg PO UD PRN migraine headache 05/12/22 06/03/22 History Past Med/Surg History Medical History Anemia hx Depression with anxiety Epilepsy most recent seizure 03/2021 History of COVID-19 09/2021, home test, tx w/paxlovid>resolved Hypertension Migraine without aura, not intractable, without status migrainosus Mixed connective tissue disease Raynauds disease Sjogren's disease Surgical History History of esophagogastroduodenoscopy (EGD) History of hysteroscopy Hx laparoscopic cholecystectomy Hx of colonoscopy S/P tubal ligation Family History Sister Myocardial infarction Father Myocardial infarction Denies family history of Ovarian cancer Prostate cancer Breast cancer Colorectal cancer Social History Smoking Status: Never smoker Second Hand Exposure: No; Do You Dip or Chew Tobacco: No; Hx Alcohol Use: No Hx Substance Use: No Preferred Language: Georgian Communication Ability: Effective Front Office Developer Required: No Beliefs That Will Affect Care: None Current Living Situation: Significant Other Feels Safe at Home: Yes Assistive Devices: Denture - Upper and Denture - Lower Review of Systems Review of Systems: As per HPI. Physical Exam Constitutional: Patient lying in bed on side due to back pain, not in acute distress however not very comfortable. Eyes: PERRL, conjunctivae normal, anicteric sclerae Respiratory: normal respiratory effort, lungs clear to auscultation Cardiovascular: Rate/Rhythm: + tachycardic Heart Sounds: normal S1 and normal S2 Gastrointestinal (Abdomen): BS+, nondistended, mild soreness to palpation. Musculoskeletal: Mild swelling and soreness to L wrist and L ankle. Skin: Patient wearing pants, unable to visualize said bullseye rash at the posterior t high however no rashes elsewhere visualized. Results & Data Results & Data Vital Signs (Past 12 Hours) Vital Signs Temp Pulse Pulse Resp BP BP Pulse Ox 06/03/22 18:30 91 H 23 95 06/03/22 18:09 94 H 26 H 92 06/03/22 18:24 06/03/22 18:00 95 H 22 113/65 93 06/03/22 17:07 37.8 C H 104 H 20 94/61 L 93 O2 Del Method 06/03/22 18:30 Room Air 06/03/22 18:09 06/03/22 18:24 Room Air 06/03/22 18:00 Room Air 06/03/22 17:07 Room Air Supervising Physician Co-Signing Physician Notes Attending addendum: I have physically seen this patient, have supervised the medical residents activities, and agree with the H&P unless as otherwise noted. Assessment and Plan: Acute Lyme disease- IgM is equivocal, IgG is positive Lyme Western blot pending for confirmation Ceftriaxone 2 g IV daily Doxycycline 100 mg p.o. twice daily Zofran 4 mg IV every 6 hours as needed Famotidine 20 mg IV every 12 hours Serial laboratories as noted Seizure disorder- Recurred since patient had not been able to take lamotrigine for 2 days due to nausea vomit If unable to take it orally, can place on Keppra IV temporarily Elevated troponin/hypertension/hypokalemia- Likely supply demand mismatch type II The patient will be admitted to telemetry for serial cardiac enzymes, serial EKG's, cardiac rhythm monitoring and a 2-D echocardiogram with Dopplers. Possibly secondary to Lyme, follow-up for arrhythmias and echo as noted Remaining orders and notations as noted Resident Activity Tracking Resident Involvement: Resident Care Provided Care Provided: Adult Hospital Medicine
[2022-06-03 20:19] LABS: Appearance Urine Cloudy (Clear); Bacteria Urine Automated 4+ (Negative); Bilirubin Urine Negative (Negative); Blood Urine Negative (Negative); Color Urine Dark Yellow; Epithelial Cell Urine Auto >30 /lpf (0-5); Glucose Urine UA Negative (Negative); Ketones Urine Trace (Negative); Leukocyte Esterase Urine Trace (Negative); Nitrite Urine Positive (Negative); Protein Urine Trace (Negative); RBC Urine Automated 0-4 /hpf (0-4); Specific Gravity Urine 1.029 (1.000-1.030); Urobilinogen Urine Negative (Negative); pH Urine 6.5 (4.5-7.5)
[2022-06-03 20:41] LABS: Renal Epithelial Cells Urine 0-5 /lpf (0-5)
[2022-06-03] MEDS: lamoTRIgine 100 MG TAB PO SCH (23:24)
[2022-06-03] MEDS: DICLOFENAC SOD 1% GEL 100 GM TUBE EXT SCH (23:24)
[2022-06-03] MEDS: OXcarbazepine 150 MG TABLET PO SCH (23:25)
[2022-06-03] MEDS: GABAPENTIN 300 MG CAP PO SCH (23:26)
[2022-06-03] MEDS: LIDOCAINE 5% 1 PATCH TD SCH (23:28)
[2022-06-03] MEDS: D5W AND 1/2NSS + 20MEQ KCL 20 MEQ/1,000 ML BAG IV SCH (23:29)
[2022-06-04] MEDS ORDERED: ACETAMINOPHEN 1,000 MG/100 ML VIAL IV PRN (03:00)
[2022-06-04] MEDS: D5W AND 1/2NSS + 20MEQ KCL 20 MEQ/1,000 ML BAG IV SCH (07:14)
[2022-06-04 07:20] LABS: Hematocrit (blood only) 29.5 % (37.0-47.0); Hemoglobin 9.4 g/dl (12.0-16.0); Mean Corpuscular Hemoglobin 28.1 pg (25.0-34.0); Mean Corpuscular Hgb Conc 31.9 g/dL (32.0-36.0); Mean Corpuscular Volume 88.1 fL (80.0-100.0); Mean Platelet Volume 9.3 fL (9.4-12.4); Platelet Count 118 K/uL (130-400); RDW Coefficient of Variation 13.9 % (11.5-14.5); RDW Standard Deviation 44.7 fL (36.4-46.3); Red Blood Count 3.35 M/uL (4.20-5.40); White Blood Count 2.98 K/ul (4.8-10.8)
[2022-06-04 07:39] LABS: BUN Creatinine Ratio 20.4 (10-20); C Reactive Protein 6.77 mg/dl (0-0.5); Calcium 8.2 mg/dl (8.6-10.3); Creatinine Clr Calc Pharmacy 78.1 ml/min; Est GFR (African American) 80.8 ml/min; Est GFR (Non-African American) 69.7 ml/min; Potassium 3.5 mmol/L (3.5-5.1)
[2022-06-04 07:44] LABS: Basophils # (auto) 0.02 K/uL (0-0.2); Basophils % (auto) 0.7 %; Immature Granulocytes # (auto) 0.01 K/uL (0.01-0.20); Immature Granulocytes % (auto) 0.3 %; Lymphocytes # (auto) 1.06 K/uL (1.2-3.4); Lymphocytes % (auto) 35.6 %; Monocytes # (auto) 0.36 K/uL (0.11-0.59); Monocytes % (auto) 12.1 %; Neutrophils # (auto) 1.53 K/uL (1.40-6.50); Neutrophils % (auto) 51.3 %
--- NOTE | 2022-06-04 07:52 | Hospitalist Progress Note ---
Date of Service June 04, 2022 Assessment & Plan (1) Lyme disease, acute: Plan: 56 year old F w/ PmHx Grand mal seizures, sjogren's, migraine without aura, HTN, depression and anxiety admitted for sepsis with positive Lyme and UA. Sepsis with Fevers, Nausea/Vomiting -- likely secondary to Lyme disease -WBC 2.63, lactate 1.1, Trop 44, CRP 7.53. -101-103.1F temp at home, BP 90's/50's in the ED. -Lyme IgG positive, IgM equivocal. Anaplasma and Babesia smear negative however will wait for anaplasma and Babesia DNA -Leukopenia and thrombocytpenia w/o LFT elevations likely c/w Lyme, but anaplasma would be a possibility which would also be tx with doxy -Babesia remains on Ddx but less likely w/o elevated LFTs -- consider switching to azithro/atovaquone if no improvement on doxy -UA positive for LE, Nitrite, 4+ bacteria, epithelial cells -- less likely nonspecific "urine feeling hot" symptoms due to UTI and more likely due to dehydration/concentrated urine -Given CTX 1g x1 in ED -- defer further doses unless urinary symptoms persist -CXR negative. -Continue Doxycycline PO 100mg BID -IV Zofran 4mg q6h for nausea. Tylenol scheduled for pain. Additional meds can be considered as needed -mIVF discontinued -- attempt PO hydration and nutrition -If able to tolerate PO can potentially plan for home later today Seizure disorder: -History of seizure disorder with patient unable to take lamotrigine or medications for past 2 days. -Continue home anti-seizure medications -- tolerating at this time Lower Back/Sciatic pain: -History of sciatic pain; follows with Dr. Beauchamp in the outpatient setting -On hydrocodone-acetaminophen, gabapentin and Baclofen at home -Continue gabapentin & baclofen PRN -Pain management with Tylenol PRN and lidocaine patch. -For now will schedule APAP and can consider restarting hydrocodone/APAP as BP improves HTN/Hypokalemia: -Hold home losartan-hydrochlorothiazide while BP low. Continue fluid resuscitati on with D5/.5NSS w/ 20meq KCl Migraine w/o aura: -Continue home medications. F/E/N/GI: Heart healthy as tolerated DVT Prophylaxis: Lovenox 40mg qAM. Code status: Full code. Dispo: PCU, plan for home once able to tolerate p.o. nutrition and hydration (2) Seizure: (3) Sjogren's disease: (4) Hypertension: (5) Depression with anxiety: (6) Migraine without aura, not intractable, without status migrainosus: (7) Epilepsy: (8) Abnormal urinalysis: Admission and Anticipated Discharge Date Admission Date: June 03, 2022 Supervising Physician Co-Signing Physician Notes I personally examined the patient and verified all barton points of history and exam, discussed case, and agree with decision making with Dr Sanchez feels miserable - although most of the misery is low back/hip pain. eating a little, still not great. tolerating medications vitals noted, took significant verbal/persistent gentle tactile stim (gently shaking shoulder) to wake her, nad heent nc at mmm breathing unlabored no accessory muscles good effort. skin no rashes no pallor or icterus. msk/ost - R > L piriformis region pelvic muscles high tone/tender/decreased ROM - LAS/inhibitory pressure - improved tissue texture, pt tolerated well sepsis - likely lyme + anaplasma (given leukopenia, thrombocytopenia, endemic area) - doxy. time. if doesn't improve then have to consider babesia but seems like she's already feeling better back pain - multifactorial but MSK playing large role. meds, mag to act as muscle relaxant (considered valium but concerned about VICK -see below), voltaren gel. outpt OMT possible VICK - while only saw her once, while ill, and with multiple mitigating circumstances, appeared c/w VICK when sleeping - outpt sleep study given how common this pathology is somatic dysfunction pelvis - OMT as above hopefully home tomorrow if ongoing improvement otherwise as above Subjective Patient seen at bedside. Still reports feeling significantly tired and weak. Lower back with radiation to both hips. She is unsure whether she would classify her urinary symptoms as dysuria, but did feel that it was hot "like coffee". Nausea has been better controlled and she has not vomited since being here, is tolerating her oral medications. She drank some apple juice earlier which she was able to keep down. She is agreeable to trying to advance diet as tolerated. She is hoping to go home today. Review of Systems Review of Systems: per HPI Physical Exam Eyes: PERRL, conjunctivae normal, anicteric sclerae Respiratory: normal respiratory effort, lungs clear to auscultation Cardiovascular: Rate/Rhythm: regular rate and regular rhythm Heart Sounds: normal S1 and normal S2 Gastrointestinal (Abdomen): normal bowel sounds, soft, nontender, no hepatosplenomegaly Musculoskeletal: no cyanosis or clubbing, extremities motor strength 5/5 Skin: no rashes, warm and dry Neurologic: No FND Results & Data Results & Data Vital Signs (Past 12 Hours) Vital Signs Temp Pulse Pulse Resp BP BP Pulse Ox 06/04/22 07:27 77 06/04/22 07:00 36.8 C 80 19 104/69 96 06/04/22 03:00 37.4 C 90 18 95/62 L 93 06/03/22 23:22 81 06/03/22 23:17 36.8 C 79 20 108/67 95 06/03/22 22:24 36.8 C 79 21 108/67 95 06/03/22 22:07 37.0 C 78 16 96/57 L 97 06/03/22 21:45 75 12 91/53 L 98 06/03/22 21:30 79 12 91/52 L 99 06/03/22 21:15 79 18 96/52 L 98 06/03/22 21:00 82 16 93/54 L 98 06/03/22 20:45 84 19 101/58 L 98 06/03/22 20:30 85 17 97/59 L 97 06/03/22 20:19 88 14 96 06/03/22 20:02 88 90 06/03/22 20:00 92 O2 Del Method O2 Flow Rate 06/04/22 07:27 06/04/22 07:00 Room Air 06/04/22 03:00 Room Air 06/03/22 23:22 06/03/22 23:17 Room Air 06/03/22 22:24 Room Air 06/03/22 22:07 Room Air 06/03/22 21:45 06/03/22 21:30 06/03/22 21:15 06/03/22 21:00 06/03/22 20:45 06/03/22 20:30 Nasal Cannula 2 06/03/22 20:19 06/03/22 20:02 06/03/22 20:00 Resident Activity Tracking Resident Involvement: Resident Care Provided Care Provided: Adult Hospital Medicine
[2022-06-04 08:47] LABS: Troponin I High Sensitivity 29.8 pg/ml (0-14)
[2022-06-04] MEDS ORDERED: LOSARTAN/HCTZ 50/12.5MG TAB PO SCH (09:00)
[2022-06-04] MEDS: GABAPENTIN 300 MG CAP PO SCH ×3 (09:31→20:36)
[2022-06-04] MEDS: DICLOFENAC SOD 1% GEL 100 GM TUBE EXT SCH ×3 (09:32→20:44)
[2022-06-04] MEDS: lamoTRIgine 100 MG TAB PO SCH ×2 (09:32→20:37)
[2022-06-04] MEDS: PANTOprazole 40 MG TAB PO SCH (09:32)
[2022-06-04] MEDS: DOXYCYCLINE HYCLATE 100 MG CAP PO SCH ×2 (09:32→20:36)
[2022-06-04] MEDS: OXcarbazepine 150 MG TABLET PO SCH ×2 (09:32→20:38)
[2022-06-04] MEDS: SERTRALINE HCL 100 MG TABLET PO SCH (09:33)
[2022-06-04] MEDS: ENOXAPARIN INJ 40 MG/0.4 ML SYR SQ SCH (09:33)
[2022-06-04] MEDS ORDERED: KETOROLAC TROMETHAMINE 15 MG/ML VIAL IV ONE (10:45)
[2022-06-04] MEDS: ACETAMINOPHEN 500 MG TAB PO SCH ×2 (10:59→19:44)
--- NOTE | 2022-06-04 13:44 | Electrocardiogram Report ---
Test Reason : Blood Pressure : / mmHG Vent. Rate : 097 BPM Atrial Rate : 097 BPM P-R Int : 168 ms QRS Dur : 148 ms QT Int : 390 ms P-R-T Axes : 028 -58 002 degrees QTc Int : 495 ms Normal sinus rhythm Possible Left atrial enlargement Right bundle branch block Left anterior fascicular block Bifascicular block Abnormal ECG When compared with ECG of 22-MAR-2022 01:16, T wave inversion now evident in Anterior leads Confirmed by Esteban Duncan ([id number]) on 06/04/2022 1:44:17 PM Referred By: REFERRED SELF Confirmed By:Esteban Duncan
--- NOTE | 2022-06-04 16:42 | Billing Data ---
Date of Service June 04, 2022 Coding Level of Care Code 40930 SUB INP/OBS CARE MIN
--- NOTE | 2022-06-04 16:42 | Hospitalist Progress Note ---
Date of Service June 04, 2022 Assessment & Plan Admission and Anticipated Discharge Date Admission Date: June 03, 2022 Results & Data Results & Data Vital Signs (Past 12 Hours) Vital Signs Temp Pulse Pulse Resp BP Pulse Ox O2 Del Method 06/04/22 16:36 85 06/04/22 15:15 98.1 F 82 19 101/65 91 Room Air 06/04/22 11:01 98.2 F 86 20 127/83 99 Room Air 06/04/22 07:27 77 06/04/22 07:00 98.2 F 80 19 104/69 96 Room Air PG Care Time/CCT Total # of Minutes Spent Total Time Spent with Patient: Total time spent is greater than 50% in coordination of care (as documented) at patient's floor/unit and/or counseling patient: Coding Level of Care Code None Diagnoses CPT Codes Musculoskeletal - Musculoskeletal: 8[address] 1-2 Body regions ([id number])
[2022-06-04] MEDS: ONDANSETRON INJ 2 MG/ML 2 ML VIAL IV PRN (17:43)
[2022-06-04] MEDS: MAGNESIUM SULFATE / D5W 1 GM/100 ML BAG IV SCH ×4 (17:44→23:43)
[2022-06-04] MEDS: HYDROCODONE/ACETAMOPHEN 5/325MG TAB PO PRN (20:35)
[2022-06-04] MEDS: LIDOCAINE 5% 1 PATCH TD SCH (20:36)
[2022-06-05] MEDS: ACETAMINOPHEN 500 MG TAB PO SCH ×3 (02:48→19:22)
--- NOTE | 2022-06-05 04:06 | Billing Data ---
Date of Service June 05, 2022 Coding Level of Care Code 81328 INT INP/OBS CARE
--- NOTE | 2022-06-05 07:05 | Hospitalist Progress Note ---
Date of Service June 05, 2022 Assessment & Plan (1) Lyme disease, acute: Plan: 56 year old F w/ PmHx Grand mal seizures, sjogren's, migraine without aura, HTN, depression and anxiety admitted for sepsis with positive Lyme and UA. Sepsis with Fevers, Nausea/Vomiting -- likely secondary to Lyme disease -WBC 2.63, lactate 1.1, Trop 44, CRP 7.53. -101-103.1F temp at home, BP 90's/50's in the ED. -Lyme IgG positive, IgM equivocal. Anaplasma and Babesia smear negative however will wait for anaplasma and Babesia DNA -Leukopenia and thrombocytpenia w/o LFT elevations likely c/w Lyme, but anaplasma would be a possibility which would also be tx with doxy -Babesia remains on Ddx but less likely w/o elevated LFTs -- consider switching to azithro/atovaquone if no improvement on doxy -UA positive for LE, Nitrite, 4+ bacteria, epithelial cells -- less likely nonspecific "urine feeling hot" symptoms due to UTI and more likely due to dehydration/concentrated urine -Given CTX 1g x1 in ED -- defer further doses unless urinary symptoms persist -CXR negative. -Continue Doxycycline PO 100mg BID -IV Zofran 4mg q6h for nausea. Tylenol scheduled for pain. Additional meds can be considered as needed -mIVF discontinued -- attempt PO hydration and nutrition -Dispo - awaiting improvement in patient's PO intolerance prior to DC Seizure disorder: -History of seizure disorder with patient unable to take lamotrigine or medications for past 2 days. -Continue home anti-seizure medications -- tolerating at this time Lower Back/Sciatic pain: -History of sciatic pain; follows with Dr. Beauchamp in the outpatient setting -On hydrocodone-acetaminophen, gabapentin and Baclofen at home -Continue gabapentin & baclofen PRN -Pain management with Tylenol PRN and lidocaine patch. -For now will schedule APAP and can consider restarting hydrocodone/APAP as BP improves Shortness of breath - suspect secondary to anxiety; lungs are CTABL - will trial an albuterol neb HTN/Hypokalemia: -Hold home losartan-hydrochlorothiazide while BP low. Continue fluid resuscitation with D5/.5NSS w/ 20meq KCl Migraine w/o aura: -Continue home medications. F/E/N/GI: Heart healthy as tolerated DVT Prophylaxis: Lovenox 40mg qAM. Code status: Full code. Dispo: PCU, plan for home once able to tolerate p.o. nutrition and hydration (2) Seizure: (3) Sjogren's disease: (4) Hypertension: (5) Depression with anxiety: (6) Migraine without aura, not intractable, without status migrainosus: (7) Epilepsy: (8) Abnormal urinalysis: Admission and Anticipated Discharge Date Admission Date: June 03, 2022 Supervising Physician Co-Signing Physician Notes I personally examined the patient and verified all barton points of history and exam, discussed case, and agree with decision making with Dr Ayoub sleeping when i see her. extensive discussions w dr ayoub - pt was in pain as well and is quite tearful. Given this, and given the fact that she is comfortable now, opted to allow her to rest. Vitals noted. Sleeping comfortably. No distress. sepsis - likely lyme + anaplasma (given leukopenia, thrombocytopenia, endemic area) - doxy. time. if doesn't improve then have to consider babesia but no fever and thrombocytopenia has improvedsuspect we are on the right track. Did switch her doxycycline to IV since p.o. intake was irregular back pain - multifactorial but MSK playing large role. meds, voltaren gel. outpt OMT possible VICK - while only saw her once, while ill, and with multiple mitigating circumstances, appeared c/w VICK when sleeping - outpt sleep study given how common this pathology is somatic dysfunction pelvis - OMT done yesterday otherwise as above Subjective Patient seen and evaluated at bedside this morning. Patient is tearful and anxious, worrying about pain control for lower back pain, nausea, and shortness of breath. Patient does note her symptoms are a bit better than yesterday although she still can't tolerate PO intake without nausea. Patient denies fever, diarrhea, or other symptoms. Review of Systems Review of Systems: See HPI Physical Exam Physical Exam: Constitutional: anxious-appearing, tearful though in no acute distress CV: regular rhythm, no murmur appreciated, extremities well-perfused, no LE edema Resp: CTABL, no wheezes/rales/rhonchi appreciated, no increased work of breathing GI: soft, nondistended, nontender, BS normoactive Neuro: alert, oriented, no focal neurologic deficit appreciated Results & Data Results & Data Vital Signs (Past 12 Hours) Vital Signs Temp Pulse Pulse Resp BP Pulse Ox O2 Del Method 06/05/22 02:23 18 92 Room Air 06/05/22 02:00 36.7 C 88 18 97/61 L 88 L Room Air 06/04/22 22:26 90 06/04/22 22:03 36.9 C 90 18 117/80 92 Room Air Resident Activity Tracking Resident Involvement: Resident Care Provided Care Provided: Adult Hospital Medicine
[2022-06-05] MEDS: DOXYCYCLINE HYCLATE 100 MG CAP PO SCH (07:39)
[2022-06-05] MEDS: ENOXAPARIN INJ 40 MG/0.4 ML SYR SQ SCH (07:39)
[2022-06-05] MEDS: GABAPENTIN 300 MG CAP PO SCH ×3 (07:40→20:15)
[2022-06-05] MEDS: PANTOprazole 40 MG TAB PO SCH (07:40)
[2022-06-05] MEDS: OXcarbazepine 150 MG TABLET PO SCH ×2 (07:40→20:12)
[2022-06-05] MEDS: lamoTRIgine 100 MG TAB PO SCH ×2 (07:40→20:13)
[2022-06-05] MEDS: SERTRALINE HCL 100 MG TABLET PO SCH (07:41)
[2022-06-05] MEDS: BACLOFEN 10 MG TAB PO PRN ×2 (07:42→20:23)
[2022-06-05] MEDS: HYDROCODONE/ACETAMOPHEN 5/325MG TAB PO PRN ×2 (07:42→20:23)
[2022-06-05] MEDS: ONDANSETRON INJ 2 MG/ML 2 ML VIAL IV PRN (07:42)
[2022-06-05] MEDS: DICLOFENAC SOD 1% GEL 100 GM TUBE EXT SCH ×3 (07:43→20:14)
[2022-06-05] MEDS ORDERED: HYDROcodone/HOMATROPINE SYRUP 5MG/1.5MG 5ML UDP PO STA (07:55)
[2022-06-05] MEDS ORDERED: ALBUTEROL 0.083% NEBU SOLN 3 ML VIAL NEB STA (08:28)
[2022-06-05] MEDS ORDERED: LORazepam 2 MG/1 ML VIAL IV STA (08:34)
[2022-06-05] MEDS ORDERED: KETOROLAC TROMETHAMINE 15 MG/ML VIAL IV ONE (08:38)
[2022-06-05 08:41] LABS: Hematocrit (blood only) 27.8 % (37.0-47.0); Mean Corpuscular Hemoglobin 27.9 pg (25.0-34.0); Mean Corpuscular Hgb Conc 32.4 g/dL (32.0-36.0); Mean Corpuscular Volume 86.1 fL (80.0-100.0); Mean Platelet Volume 9.9 fL (9.4-12.4); Platelet Count 142 K/uL (130-400); RDW Coefficient of Variation 13.9 % (11.5-14.5); RDW Standard Deviation 43.8 fL (36.4-46.3); Red Blood Count 3.23 M/uL (4.20-5.40); White Blood Count 3.38 K/ul (4.8-10.8)
[2022-06-05 09:05] LABS: C Reactive Protein 8.01 mg/dl (0-0.5); Calcium 8.2 mg/dl (8.6-10.3); Creatinine Clr Calc Pharmacy 90.2 ml/min; Est GFR (African American) 95.4 ml/min; Est GFR (Non-African American) 82.3 ml/min; Potassium 3.6 mmol/L (3.5-5.1)
[2022-06-05 09:09] LABS: Basophils # (auto) 0.02 K/uL (0-0.2); Basophils % (auto) 0.6 %; Eosinophils # (auto) 0.02 K/uL (0-0.50); Eosinophils % (auto) 0.6 %; Lymphocytes # (auto) 1.21 K/uL (1.2-3.4); Lymphocytes % (auto) 35.8 %; Monocytes # (auto) 0.35 K/uL (0.11-0.59); Monocytes % (auto) 10.4 %; Neutrophils # (auto) 1.78 K/uL (1.40-6.50); Neutrophils % (auto) 52.6 %
[2022-06-05] MEDS ORDERED: HYDROmorphone INJ 0.5 MG/0.5 ML SYR IV STA (10:01)
[2022-06-05] MEDS ORDERED: ONDANSETRON INJ 2 MG/ML 2 ML VIAL IV PRN (11:42)
--- NOTE | 2022-06-05 18:16 | Billing Data ---
Date of Service June 05, 2022 Coding Level of Care Code 67592 SUB INP/OBS CARE
[2022-06-05] MEDS: DOXYCYCLINE HYCLATE 100 MG in DEXTROSE 5% 100 ML IV SCH (20:09)
[2022-06-05] MEDS: LIDOCAINE 5% 1 PATCH TD SCH (20:14)
[2022-06-06] MEDS: ACETAMINOPHEN 500 MG TAB PO SCH ×2 (02:47→11:06)
[2022-06-06] MEDS ORDERED: KETOROLAC TROMETHAMINE 15 MG/ML VIAL IV ONE ×2 (03:29→08:58)
--- NOTE | 2022-06-06 06:56 | Hospitalist Progress Note ---
Date of Service June 06, 2022 Assessment & Plan Admission and Anticipated Discharge Date Admission Date: June 03, 2022 Results & Data Results & Data Vital Signs (Past 12 Hours) Vital Signs Temp Pulse Pulse Resp BP BP Pulse Ox 06/06/22 03:16 36.6 C 88 16 150/93 H 92 06/05/22 22:00 76 06/05/22 23:45 36.4 C L 70 18 95/57 L 92 06/05/22 19:09 36.7 C 80 18 117/76 93 O2 Del Method 06/06/22 03:16 Room Air 06/05/22 22:00 06/05/22 23:45 Room Air 06/05/22 19:09 Room Air
[2022-06-06 07:42] LABS: Hematocrit (blood only) 29.5 % (37.0-47.0); Hemoglobin 9.6 g/dl (12.0-16.0); Mean Corpuscular Hgb Conc 32.5 g/dL (32.0-36.0); Platelet Count 192 K/uL (130-400); RDW Coefficient of Variation 13.9 % (11.5-14.5); RDW Standard Deviation 43.5 fL (36.4-46.3); Red Blood Count 3.43 M/uL (4.20-5.40); White Blood Count 3.34 K/ul (4.8-10.8)
[2022-06-06 08:09] LABS: BUN Creatinine Ratio 25.6 (10-20); C Reactive Protein 7.01 mg/dl (0-0.5); Calcium 8.4 mg/dl (8.6-10.3); Creatinine Clr Calc Pharmacy 89.1 ml/min; Est GFR (Non-African American) 81.1 ml/min; Potassium 3.8 mmol/L (3.5-5.1)
[2022-06-06] MEDS: DOXYCYCLINE HYCLATE 100 MG in DEXTROSE 5% 100 ML IV SCH (08:17)
[2022-06-06] MEDS: DICLOFENAC SOD 1% GEL 100 GM TUBE EXT SCH (08:17)
[2022-06-06] MEDS: GABAPENTIN 300 MG CAP PO SCH (08:18)
[2022-06-06] MEDS: ENOXAPARIN INJ 40 MG/0.4 ML SYR SQ SCH (08:18)
[2022-06-06] MEDS: lamoTRIgine 100 MG TAB PO SCH (08:18)
[2022-06-06] MEDS: OXcarbazepine 150 MG TABLET PO SCH (08:19)
[2022-06-06] MEDS: PANTOprazole 40 MG TAB PO SCH (08:19)
[2022-06-06] MEDS: SERTRALINE HCL 100 MG TABLET PO SCH (08:19)
[2022-06-06 08:32] LABS: Basophils # (auto) 0.01 K/uL (0-0.2); Basophils % (auto) 0.3 %; Eosinophils # (auto) 0.06 K/uL (0-0.50); Eosinophils % (auto) 1.8 %; Immature Granulocytes # (auto) 0.01 K/uL (0.01-0.20); Immature Granulocytes % (auto) 0.3 %; Lymphocytes # (auto) 1.62 K/uL (1.2-3.4); Lymphocytes % (auto) 48.5 %; Monocytes # (auto) 0.27 K/uL (0.11-0.59); Monocytes % (auto) 8.1 %; Neutrophils # (auto) 1.37 K/uL (1.40-6.50)
[2022-06-06] MEDS: HYDROCODONE/ACETAMOPHEN 5/325MG TAB PO PRN (08:59)
--- NOTE | 2022-06-06 12:17 | Discharge Summary ---
Date of Service June 06, 2022 Admission HPI Per Admitting Provider Joy is a 56 year old female w/ PmHx Gran mal seizures, sjogren's, migraine without aura, HTN, depression and anxiety who presents to the ED after telehealth visit with family practice for fevers, nausea, vomiting. Patient [place] [facility] [place]. Patient stated that 1.5 weeks prior she had a tick she found on her in the middle of the night as she was going to the bathroom. The tick was located at her L posterior thigh near the popliteal fossa. She attempted to do a blind sweep removal of the tick but had only gotten half of it off. Her boyfriend the next morning and tried to remove the remainder. Later on she developed a Bullseye rash at the area of the bite. 2 days ago she started to develop fevers, chills, nausea. Her fevers ranged from 101 to 103.1F. She also developed L wrist and L ankle pain and swelling. She developed vomiting with this as well and scheduled a telehealth appointment with her family practice at [facility] earlier today. They had directed her to come to the ED due to not being able to keep anything down. Patient is concerned with not being able to keep her lamotrigine down as she is vulnerable to getting her gran mal seizures without taking it and has been unable to take for the past 2 days due to the nausea. She states she also has hot sensation at the urethra with urination. In the ED she was found to be Lyme IgG positive, IgM equivicol. WBC 2.63, Hgb 11.5, Trop 44.0, CRP 7.53. UA Positive Nitrite and LE, +4 Bacteria. CXR clear without any acute processes. Admission Exam Per Admitting Provider Constitutional:Patient lying in bed on side due to back pain, not in acute distress however not very comfortable. Eyes:PERRL, conjunctivae normal, anicteric sclerae Respiratory:normal respiratory effort, lungs clear to auscultation Cardiovascular:Rate/Rhythm: + tachycardic Heart Sounds: normal S1 and normal S2 Gastrointestinal (Abdomen):BS+, nondistended, mild soreness to palpation. Musculoskeletal:Mild swelling and soreness to L wrist and L ankle. Skin:Patient wearing pants, unable to visualize said bullseye rash at the posterior thigh however no rashes elsewhere visualized. Principal Diagnosis Lyme disease Discharge Exam Constitutional: well-appearing, no acute distress CV: regular rhythm, no murmur appreciated, extremities well-perfused, no LE edema Resp: CTABL, no wheezes/rales/rhonchi appreciated, no increased work of breathing GI: soft, nondistended, nontender, BS normoactive Skin: warm, dry, no rash appreciated Neuro: alert, oriented, no focal neurologic deficit appreciated Discharge Data Allergies Allergy/AdvReac Type Severity Reaction Status Date / Time erythromycin base Allergy Intermediate RASH Verified 06/03/22 18:28 Consultations 06/03/22 21:48 ED Decision to Admit Stat Hospital Course (1) Lyme disease, acute: On admission, patient was treated empirically with doxycycline for presumed tick-borne illness. Lyme immunoglobulin testing did result positive. Patients symptoms dramatically improved on hospital day four, and so patient was presumed to not have babesiosis. Patient was discharged on hospital day four in stable condition with a doxycycline prescription to complete a total ten-day antibiotic course. (2) Seizure: (3) Sjogren's disease: (4) Hypertension: (5) Depression with anxiety: (6) Migraine without aura, not intractable, without status migrainosus: (7) Epilepsy: (8) Abnormal urinalysis: Total Time Total Time Spent Total Time Spent (In Minutes): <30 Discharge Plan Discharge Items Patient Disposition: Home - Self-Care Reason For Visit: FEVERS, VOMITING, LYME Discharge Diagnosis: Lyme disease, anaplasmosis Activity: Resume your previous activity Non-emergency contact: Primary Care Provider Call non-emergency contact if: your symptoms worsen and you have a fever Follow-up/Referrals: Stress Echocardiogram [Other] - 06/10/22 8:45 am (Arrival time of 08:15 to the Main Entrance of the [facility] for registration Nothing to eat or drink by mouth for 4 hours prior to test Please wear comfortable clothing and sneakers.) Elan Beauchamp, [Primary Care Provider] - Diet: Heart Healthy Addtl Attending Provider Instructions: You were admitted to the hospital for treatment of tick-borne illnesses including Lyme disease and suspected anaplasmosis. You were treated with antibiotics in addition to pain-relief medicines. Your symptoms have significantly improved, and we feel it is safe for you to continue your recovery from home. A discharge summary will be sent to your primary care physician to ensure continuity of care. Please bring this discharge summary with you to your next office appointment so that your provider can review it at that time. Follow-up appointments: Make a follow-up appointment with your PCP within the next week. It is very important that you follow up with them shortly after discharge from the hospital. Keep all your follow-up appointments as already scheduled. If you cannot make an appointment, notify your provider. Medications: Your medication list has been reviewed and reconciled upon discharge to ensure accuracy and continuity of care. An updated list of all your medications is included with your hospital discharge paperwork. Please review this list closely, and make note of any changes. * We sent a new medication called doxycycline to your pharmacy. Take doxycycline (100mg) one tablet twice daily for six more days (final dose will be on June 12). * It is very important that you take this medicine with a full glass of water so it does not irritate your esophagus. * If doxycycline causes nausea, taking it with food can help. * Lastly, doxycycline can cause increased sensitivity to sunlight, so wear sunscreen and try to limit sun exposure until you complete your course of doxycycline. If you have any issues filling these prescriptions, please call [phone] and ask to leave a message for Dr. Nic Wade. Take your medications as instructed; do not skip a dose of your medicines. Make sure all of your doctors know every medicine you are taking (including over-the- counter medicines, vitamins, and supplements). Call your primary care provider before taking any new medicines (including [id number] medicines, vitamins, and supplements), because some of these may interact with your current medications, or may make your symptoms worse. Tell your primary care provider if you cannot afford your medications. CONTACT YOUR PRIMARY CARE PROVIDER if you experience any of the following: Fever, chills, chest pain, shortness of breath Nausea and/or vomiting Difficulty following your treatment plan, or difficulty taking medications CALL 911 OR GO TO THE EMERGENCY DEPARTMENT if you experience any of the following: Sudden, severe abdominal pain or nausea/vomiting Severe chest pain, or chest pain that radiates (moves) to your jaw or arm Sudden, severe shortness of breath or difficulty breathing Thank you for allowing us to participate in your care. Pending Studies at Discharge: No Stand-Alone Forms: My [facility] Medications and DC Order Prescriptions: New doxycycline hyclate 100 mg Capsule 100 mg PO BID 6 Days Qty: 12 0RF Continued Emgality Pen 120 mg/mL pen injector 120 mg subcut MONTHLY Qty: 1 5RF lamotrigine 150 mg tablet 300 mg PO BID 90 Days Qty: 360 1RF baclofen 10 mg tablet 10 mg PO BID PRN (Reason: muscle spasm) Qty: 60 3RF losartan-hydrochlorothiazide 50-12.5 mg tablet 1 tab PO QAM hydrocodone-acetaminophen 5-325 mg tablet 1 tab PO Q8H PRN (Reason: Pain) multivitamin [Daily Multi-Vitamin] Tablet 1 tab PO QAM lamotrigine 25 mg tablet,disintegrating 25 mg PO DAILY PRN (Reason: aura, anxiety) 30 Days Qty: 30 5RF oxcarbazepine [Trileptal] 300 mg tablet 300 mg PO BID Qty: 60 8RF gabapentin 300 mg capsule 300 mg PO TID Rx Instructions: 1 cap po TID; ondansetron 4 mg tablet,disintegrating 4 mg translingual TID PRN (Reason: nausea and vomiting) sertraline 100 mg tablet 100 mg PO QAM lorazepam 0.5 mg tablet 0.5 mg PO DAILY PRN (Reason: Anxiety) omeprazole 20 mg capsule,delayed release(DR/EC) 20 mg PO QAM Xeljanz XR 11 mg tablet extended release 24 hr 11 mg PO HS rizatriptan [Maxalt] 10 mg tablet 10 mg PO UD PRN (Reason: migraine headache) Rx Instructions: take 1 tab at onset of headache; if no relief may repeat in 2hr prn Discharge Orders: Discharge Order (Routine); Ordered 06/06/22 Ordered By: Nic Wade Admission Data Admit Date/Time: 06/03/22 20:35 Attending Provider: Van Toscano Admit Provider: Tim Hamilton Primary Care Provider: Elan Beauchamp Other Providers: Ugo Lacy Other Interventions: Discharge Summary Assessment (RN) Last Done: 06/06/22 12:48 Supervising Physician Co-Signing Physician Notes I personally examined the patient and verified all barton points of history and exam, discussed case, and agree with decision making with Dr Wade feeling better feels up to going home. updated . answered all questions to the best of my ability and to their satisfaction. vitals noted nad heent nc at mmm breathing unlabored no accessory muscles good effort skin no rashes no pallor or icterus sepsis - likely lyme + anaplasma (given leukopenia, thrombocytopenia, endemic area) - safe for home, finish PO doxy. possible ADRs outlined back pain - multifactorial but MSK playing large role. meds, voltaren gel. outpt OMT likely to be of benefit possible VICK - while only saw her once, while ill, and with multiple mitigating circumstances, appeared c/w VICK when sleeping - outpt sleep study given how common this pathology is somatic dysfunction pelvis - OMT done during this stay, would likely benefit from outpt OMT as well otherwise as above Resident Activity Tracking Resident Involvement: Resident Care Provided Care Provided: Adult Hospital Medicine
--- NOTE | 2022-06-06 15:59 | Billing Data ---
Date of Service June 06, 2022 Coding Level of Care Code 08758 IN/OBS DISCH 30 MIN/LESS
[2022-06-06] MEDS ORDERED: DOXYCYCLINE HYCLATE 100 MG CAP PO SCH (21:00)
[2022-06-08 02:18] LABS: 18KDIGG Band REACTIVE; 23KDIGG Band NON-REACTIVE; 23KDIGM Band NON-REACTIVE; 28KDIGG Band NON-REACTIVE; 30KDIGG Band NON-REACTIVE; 39KDIGG Band REACTIVE; 39KDIGM Band NON-REACTIVE; 41KDIGG Band REACTIVE; 41KDIGM Band NON-REACTIVE; 45KDIGG Band NON-REACTIVE; 58KDIGG Band REACTIVE; 66KDIGG Band NON-REACTIVE; 93KDIGG Band NON-REACTIVE; Lyme Antibodies, WB IgG NEGATIVE (NEGATIVE); Lyme Antibodies, WB IgM NEGATIVE (NEGATIVE)
[2022-06-09 17:43] LABS: Babesia microti DNA Not Detected (Not Detected)
== END 2022-06-06 13:35 | disposition home or self-care (01) | DRG 872 ==
LOC: ED 16:55 → SUATTDRO 20:35 → 2S 20:35

== ENCOUNTER 2023-01-28 | Inpatient (IN) ==
[2023-01-28] MEDS ORDERED: ONDANSETRON INJ 2 MG/ML 2 ML VIAL IV STA (00:33)
[2023-01-28] MEDS ORDERED: HYDROmorphone INJ 1 MG/ML SYRINGE IV STA ×2 (00:33→04:25)
[2023-01-28] MEDS ORDERED: SODIUM CHLORIDE 0.9% 1,000 ML IV ONE (00:33)
[2023-01-28] MEDS ORDERED: fentaNYL citrate PF 100 MCG/2 ML VIAL IV STA ×2 (00:54→01:33)
--- NOTE | 2023-01-28 00:57 | Emergency Department Note ---
Impression & Plan Fracture of humeral head, right, closed, Dislocation of shoulder, right, closed, Fracture of coracoid process of right scapula, Seizure ED Provider Note Name: STANFORD HUTSON Age: 57 Sex: Female Arrives Via: Walk-In Informant: Patient, ED Provider: Akash Don MD Chief Complaint: Shoulder pain Impression: As per impressions above Medical Decision Making: Pleasant 57-year-old female with history of Sjogren's, hypertension, depression, migraines, epilepsy arrives for evaluation acute right shoulder pain following 15-minute seizure at home. Had not had a seizure in a few years but has been on stable medication doses with no changes. Arrives awake alert oriented without any neurologic deficits other than she is very uncomfortable and notes decreased sensation of the right lateral upper arm. Right shoulder is significantly swollen. Distal pulses sensation intact. Bedside x-ray of the shoulder shows a comminuted displaced fracture dislocation of the right humeral head. CT of the head, neck, shoulder were obtained. Fortunately no acute findings on head or neck CTs. Shoulder CT shows the severely comminuted dislocated humeral head fracture along with a coracoid fracture. Reviewed this with orthopedics who suggested discussion with [place] [facility]. I did discuss this with [facility] trauma and looped in Ortho here to that conversation. Given complicated injury she may benefit for transfer to their facility but at the moment overnight orthopedic surgeon is not sure that there would be surgery right away. At this point plan is to continue to keep her comfortable here at [facility]. Admit her to our hospital. Later this morning the orthopedic surgeon at her she will discuss it with colleagues and determine best approach and they will also keep in touch with Dr. Avila the orthopedic surgeon here. Medicine team will admit the patient given she has a complex medical history including seizures and a recent seizure, and the fact that she is requiring a significant amount of pain medications. Patient is on board with this plan as our providers. Repeat examinations throughout her stay revealed good distal sensation pulses and strength in her hand and continued paresthesias of the right lateral upper arm. Triage/Nursing Notes reviewed by Me Differential:Fracture, dislocation, sprain, neurovascular injury, intracranial hemorrhage, cervical fracture, electrolyte imbalance, infection, many other pathologies considered Vital Signs: reviewed and remarkable for HTN on arrival Interventions: Dilaudid 1 mg IV, Dilaudid 0.5 mg IV, fentanyl 100 mcg IV x 2, Ativan 1 mg IV, normal saline bolus Labs:ED labs Reviewed by me and remarkable for no significant abnormalities Imaging: Right shoulder x-ray 3 view. Comminuted fractured dislocated right humeral head fracture. CT of the head without contrast as per my informal interpretation no intracranial hemorrhage or mass effect. Confirmed by radiologist see the report for full. CT of the cervical spine as per my informal interpretation no fracture no dislocation appreciated. Confirmed by radiologist see the report for full. CT of the right shoulder without contrast. As per my informal interpretation. Comminuted fracture of the humeral head with anterior dislocation of primary fragment of humeral head as well as a fracture through the base of the coracoid process. See radiologist read for full. Cardiac/Tele Monitoring: Cardiac Monitoring: An Order was placed for continuous cardiac monitoring. The monitor shows a rate of 90 with a normal sinus rhythm. Consults:Dr Avila [facility] ([place]). Dr Cristal [facility] ([place]). Dr Lacy [facility] Hospitalist. Plan: Disposition:Hospitalization. Condition: Good History of Present Illness: 57-year-old female arrives for evaluation of right shoulder pain. Patient with a long history of seizures on Lamictal and Dilantin. She had not had a seizure in several years. This evening she was with her when she proceeded to have a 15-minute tonic-clonic seizure. Notes at afterwards she has been having severe right shoulder pain. Radiates down her right arm. Associated with some mild right neck pain. Denies any specific headache or neurologic deficits. Denies chest pain, shortness of breath, back pain, abdominal pain, leg pain or other concerning signs or symptoms. She notes severe pain in the right shoulder and is unable to move it at all due to the amount of pain she is having. She never had any issues with her shoulder previously. Per patient did strike her head when she fell and was unresponsive during the seizure and took some time to come out of it. Past Medical History:See Below Home Medications:See Below Allergies:Erythromycin base Vitals:Blood Pressure: 153/106, Pulse 94, RR 25, T 36.8C, O2 94% on RA Physical Exam: GENERAL: Patient is severely uncomfortable appearing and in severe distress. RESPIRATORY: No dyspnea. Clear to auscultation and equal bilaterally. CARDIOVASCULAR: Regular rate and rhythm.No murmur appreciated. GASTROINTESTINAL: Abdomen soft, non-tender, no peritonitis. EXTREMITIES: Swelling of the right shoulder area with severe pain on even mild palpation and unable to move shoulder at all. Does have some pain with movement of the right elbow and no pain with movement of right wrist or fingers. Sensation is intact distally and she has good pulses though notes decreased sensation right lateral upper arm. Otherwise normal motion all extremities, no cyanosis, no edema. NEUROLOGIC: Alert and oriented. No focal neurologic deficits appreciated SKIN: No rash, no jaundice, no diaphoresis. PSYCH: Appropriate GCS: 15 ED Course: Times/Reassessments: Many repeat evaluation. Gradual improvement in patient's pain with periodic spikes. She continues to have some paresthesias over the right lateral upper arm but no furthering or progression of symptoms. She continues to have good strength in the right hand. Akash Don MD Past Med/Surg History Medical History (Updated 01/28/23 @ 04:35 by Akash Don MD) UTI (urinary tract infection) Sepsis Abnormal urinalysis Lyme disease, acute History of COVID-19 09/2021, home test, tx w/paxlovid>resolved Raynauds disease Sjogren's disease Mixed connective tissue disease Anemia hx Hypertension Depression with anxiety Migraine without aura, not intractable, without status migrainosus Epilepsy most recent seizure 03/2021 Seizure Surgical History Hx of colonoscopy History of esophagogastroduodenoscopy (EGD) Hx laparoscopic cholecystectomy History of hysteroscopy S/P tubal ligation Family History Sister Myocardial infarction Father Myocardial infarction Denies family history of Ovarian cancer Prostate cancer Breast cancer Colorectal cancer Social History Smoking Status: Never smoker Second Hand Exposure: No; Do You Dip or Chew Tobacco: No; Hx Alcohol Use: No Hx Substance Use: No Preferred Language: French Communication Ability: Effective 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5 mg tablet 0.5 mg PO DAILY PRN Anxiety 03/22/22 01/28/23 omeprazole 20 mg capsule,delayed 20 mg PO QAM 03/22/22 01/28/23 release ondansetron 4 mg disintegrating 4 mg translingual TID PRN nausea 03/22/22 01/28/23 tablet and vomiting sertraline 100 mg tablet 100 mg PO QAM 03/22/22 01/28/23 tofacitinib 11 mg tablet,extended 11 mg PO HS 03/22/22 01/28/23 release 24 hr (Xeljanz XR) hydrocodone 7.5 mg-acetaminophen 1 tab PO QID PRN Pain 01/28/23 01/28/23 325 mg tablet ibuprofen 600 mg tablet 600 mg PO QID PRN Pain 01/28/23 01/28/23 Previous Rx's Medication Instructions Recorded baclofen 10 mg tablet 10 mg PO BID PRN muscle spasm #60 05/18/21 tabs oxcarbazepine 300 mg tablet 300 mg PO BID #60 tabs 08/18/21 (Trileptal) lamotrigine 150 mg tablet 300 mg (2 x 150 mg) PO BID 90 days 06/25/22 #360 tabs lamotrigine 25 mg disintegrating 25 mg PO DAILY PRN aura, anxiety 08/13/22 tablet 30 days #30 tabs cyanocobalamin (vitamin B-12) 1,000 mcg IM MONTHLY monthly #1 mL 10/15/22 1,000 mcg/mL injection solution syringe with needle 3 mL 23 x 1" #4 ea 10/15/22 (BD Eclipse Luer-Navarro) galcanezumab-gnlm 120 mg/mL 120 mg subcut MONTHLY #1 mL 11/10/22 subcutaneous pen injector (Emgality Pen) Results & Data (ED) Vital Signs Vital Signs - 24 hr 01/28/23 00:04 01/28/23 00:13 01/28/23 00:14 Temperature 36.8 C Temperature Source Temporal Artery Scan Pulse Rate 100 H 95 H Pulse Rate [Finger] Pulse Rate from SpO2 Sensor Pulse Rhythm Regular Pulse Rhythm [Finger] Pulse Strength Normal Pulse Strength [Finger] Respiratory Rate 20 Respiratory Effort / Characteristics Non-Labored Spontaneous Respiratory Depth Normal Respiratory Pattern Blood Pressure 154/101 H 153/106 H Blood Pressure [Left Arm] Blood Pressure Mean 118 130 Blood Pressure Mean [Left Arm] Blood Pressure Position Sitting Pulse Oximetry 98 Oxygen Delivery Method Room Air Oxygen Flow Rate Sepsis Recent Fever Within 48 Hours No Sepsis New/Unexplained Change in Mental Status N/A Sepsis Action Taken by Nursing No Action Required Oxygen Flow Rate - Titration Pulse Oximetry Post Tiitration 01/28/23 00:14 01/28/23 00:15 01/28/23 00:15 Temperature Temperature Source Pulse Rate 94 H Pulse Rate [Finger] 94 H Pulse Rate from SpO2 Sensor 97 H Pulse Rhythm Pulse Rhythm [Finger] Regular Pulse Strength Pulse Strength [Finger] Normal Respiratory Rate 27 H 25 H Respiratory Effort / Characteristics Non-Labored Respiratory Depth Normal Respiratory Pattern Blood Pressure Blood Pressure [Left Arm] 153/106 H Blood Pressure Mean Blood Pressure Mean [Left Arm] 121 Blood Pressure Position Pulse Oximetry 94 94 Oxygen Delivery Method Room Air Room Air Oxygen Flow Rate Sepsis Recent Fever Within 48 Hours Sepsis New/Unexplained Change in Mental Status Sepsis Action Taken by Nursing Oxygen Flow Rate - Titration Pulse Oximetry Post Tiitration 01/28/23 00:30 01/28/23 00:31 01/28/23 01:00 Temperature Temperature Source Pulse Rate 94 H 90 91 H Pulse Rate [Finger] Pulse Rate from SpO2 Sensor Pulse Rhythm Pulse Rhythm [Finger] Pulse Strength Pulse Strength [Finger] Respiratory Rate 23 23 18 Respiratory Effort / Characteristics Respiratory Depth Respiratory Pattern Blood Pressure 155/101 H 163/98 H Blood Pressure [Left Arm] Blood Pressure Mean 119 119 Blood Pressure Mean [Left Arm] Blood Pressure Position Pulse Oximetry Oxygen Delivery Method Oxygen Flow Rate Sepsis Recent Fever Within 48 Hours Sepsis New/Unexplained Change in Mental Status Sepsis Action Taken by Nursing Oxygen Flow Rate - Titration Pulse Oximetry Post Tiitration 01/28/23 01:30 01/28/23 01:31 01/28/23 01:31 Temperature Temperature Source Pulse Rate 87 89 Pulse Rate [Finger] Pulse Rate from SpO2 Sensor 87 89 Pulse Rhythm Pulse Rhythm [Finger] Pulse Strength Pulse Strength [Finger] Respiratory Rate 23 28 H Respiratory Effort / Characteristics Respiratory Depth Respiratory Pattern Blood Pressure 146/94 H Blood Pressure [Left Arm] Blood Pressure Mean 113 Blood Pressure Mean [Left Arm] Blood Pressure Position Pulse Oximetry 95 94 Oxygen Delivery Method Oxygen Flow Rate Sepsis Recent Fever Within 48 Hours Sepsis New/Unexplained Change in Mental Status Sepsis Action Taken by Nursing Oxygen Flow Rate - Titration Pulse Oximetry Post Tiitration 01/28/23 01:51 01/28/23 01:52 01/28/23 02:00 Temperature Temperature Source Pulse Rate 89 Pulse Rate [Finger] Pulse Rate from SpO2 Sensor 90 Pulse Rhythm Pulse Rhythm [Finger] Pulse Strength Pulse Strength [Finger] Respiratory Rate 12 23 Respiratory Effort / Characteristics Non-Labored Spontaneous Respiratory Depth Normal Respiratory Pattern Blood Pressure Blood Pressure [Left Arm] Blood Pressure Mean Blood Pressure Mean [Left Arm] Blood Pressure Position Pulse Oximetry 56 L 100 100 Oxygen Delivery Method Nasal Cannula Oxymask Oxymask Oxygen Flow Rate 4 10 Sepsis Recent Fever Within 48 Hours Sepsis New/Unexplained Change in Mental Status Sepsis Action Taken by Nursing Oxygen Flow Rate - Titration 10 Pulse Oximetry Post Tiitration 100 01/28/23 02:00 01/28/23 02:30 01/28/23 03:30 Temperature Temperature Source Pulse Rate Pulse Rate [Finger] 88 90 95 H Pulse Rate from SpO2 Sensor Pulse Rhythm Pulse Rhythm [Finger] Pulse Strength Pulse Strength [Finger] Respiratory Rate 24 28 H 18 Respiratory Effort / Characteristics Non-Labored Non-Labored Non-Labored Spontaneous Respiratory Depth Normal Normal Respiratory Pattern Regular Blood Pressure Blood Pressure [Left Arm] 155/103 H 146/93 H 149/96 H Blood Pressure Mean Blood Pressure Mean [Left Arm] 120 110 113 Blood Pressure Position Pulse Oximetry 100 98 98 Oxygen Delivery Method Room Air Oxymask Oxymask Oxygen Flow Rate 4 4 Sepsis Recent Fever Within 48 Hours Sepsis New/Unexplained Change in Mental Status Sepsis Action Taken by Nursing Oxygen Flow Rate - Titration Pulse Oximetry Post Tiitration 01/28/23 04:08 01/28/23 04:30 01/28/23 05:00 Temperature Temperature Source Pulse Rate 95 H Pulse Rate [Finger] 93 H 92 H Pulse Rate from SpO2 Sensor Pulse Rhythm Pulse Rhythm [Finger] Pulse Strength Pulse Strength [Finger] Respiratory Rate 14 18 Respiratory Effort / Characteristics Non-Labored Spontaneous Non-Labored Respiratory Depth Normal Normal Respiratory Pattern Regular Blood Pressure Blood Pressure [Left Arm] 153/97 H 143/87 H Blood Pressure Mean Blood Pressure Mean [Left Arm] 115 105 Blood Pressure Position Pulse Oximetry 98 98 Oxygen Delivery Method Oxymask Oxymask Oxygen Flow Rate 4 Sepsis Recent Fever Within 48 Hours Sepsis New/Unexplained Change in Mental Status Sepsis Action Taken by Nursing Oxygen Flow Rate - Titration Pulse Oximetry Post Tiitration 01/28/23 05:30 Temperature Temperature Source Pulse Rate Pulse Rate [Finger] 93 H Pulse Rate from SpO2 Sensor Pulse Rhythm Pulse Rhythm [Finger] Pulse Strength Pulse Strength [Finger] Respiratory Rate 14 Respiratory Effort / Characteristics Non-Labored Spontaneous Respiratory Depth Normal Respiratory Pattern Regular Blood Pressure Blood Pressure [Left Arm] 128/89 Blood Pressure Mean Blood Pressure Mean [Left Arm] 102 Blood Pressure Position Pulse Oximetry 97 Oxygen Delivery Method Oxymask Oxygen Flow Rate 4 Sepsis Recent Fever Within 48 Hours Sepsis New/Unexplained Change in Mental Status Sepsis Action Taken by Nursing Oxygen Flow Rate - Titration Pulse Oximetry Post Tiitration Laboratory Data 01/28/23 00:36 01/28/23 00:36 Lab Results 01/28/23 Range/Units 00:36 WBC 6.46 (4.8-10.8) K/ul RBC 4.29 (4.20-5.40) M/uL Hgb 12.4 (12.0-16.0) g/dl Hct 37.0 (37.0-47.0) % MCV 86.2 (80.0-100.0) fL MCH 28.9 (25.0-34.0) pg MCHC 33.5 (32.0-36.0) g/dL RDW Std Deviation 41.3 (36.4-46.3) fL RDW Coeff of [place] 13.2 (11.5-14.5) % Plt Count 326 (130-400) K/uL MPV 9.4 (9.4-12.4) fL Immature Gran % (Auto) 0.2 % Neut % (Auto) 68.5 % Lymph % (Auto) 21.2 % [place] % (Auto) 9.3 % Eos % (Auto) 0.5 % Baso % (Auto) 0.3 % Neut # (Auto) 4.43 (1.40-6.50) K/uL Lymph # (Auto) 1.37 (1.20-3.40) K/uL [place] # (Auto) 0.60 H (0.11-0.59) K/uL Eos # (Auto) 0.03 (0.00-0.50) K/uL Baso # (Auto) 0.02 (0.00-0.20) K/uL Immature Gran # (Auto) 0.01 (0.01-0.20) K/uL Sodium 138 (136-145) mmol/L Potassium 3.4 L (3.5-5.1) mmol/L Chloride 106 (98-107) mmol/L Carbon Dioxide 25 (21-32) mmol/L Anion Gap 7 (3-11) BUN 17 (6-23) mg/dl Creatinine 1.01 (0.6-1.2) mg/dl Est Cr Clr Drug Dosing 68.6 ml/min Est GFR ( Amer) 72.6 ml/min Est GFR (Non-Af Amer) 62.6 ml/min BUN/Creatinine Ratio 16.8 (10-20) Glucose 116 H (70-99(Fasting)) mg/dl Calcium 9.3 (8.6-10.3) mg/dl Magnesium 1.9 (1.7-2.4) mg/dl Total Bilirubin 0.3 (0.2-1.0) mg/dl Direct Bilirubin 0.1 (0-0.2) mg/dl AST 25 (13-39) U/L ALT 26 (7-52) U/L Alkaline Phosphatase 97 (34-104) U/L Total Protein 8.4 H (6.0-8.3) gm/dl Albumin 4.3 (3.4-5.0) gm/dl Phenytoin < 3.0 L (10-20) mcg/ml Administered Medications Potassium Chloride/Sodium Chloride (Normal Saline W/20 Meq Kcl) 20 meq in 1,000 mls @ 100 mls/hr IV .Q10H [facility]; Protocol Stop: 01/28/23 14:29 Last Admin: 01/28/23 04:50 Dose: 100 mls/hr Documented By: GERAMN Discontinued Medications Diphenhydramine HCl (Diphenhydramine 50 Mg/Ml Vial) 25 mg IV NOW STA Stop: 01/28/23 04:26 Last Admin: 01/28/23 04:47 Dose: 25 mg Documented By: GERMAN Fentanyl Citrate (Fentanyl Citrate Pf 100 Mcg/2 Ml Vial) 100 mcg IV NOW STA Stop: 01/28/23 00:55 Last Admin: 01/28/23 01:02 Dose: 100 mcg Documented By: GERMAN Fentanyl Citrate (Fentanyl Citrate Pf 100 Mcg/2 Ml Vial) 100 mcg IV NOW STA Stop: 01/28/23 01:34 Last Admin: 01/28/23 01:37 Dose: 100 mcg Documented By: GERMAN Hydromorphone HCl (Hydromorphone Inj 1 Mg/Ml Syringe) 1 mg IV NOW STA Stop: 01/28/23 00:34 Last Admin: 01/28/23 00:47 Dose: 1 mg Documented By: GERMAN Hydromorphone HCl (Hydromorphone Inj 0.5 Mg/0.5 Ml Syr) 0.5 mg IV NOW STA Stop: 01/28/23 02:41 Last Admin: 01/28/23 03:07 Dose: 0.5 mg Documented By: GERMAN Hydromorphone HCl (Hydromorphone Inj 1 Mg/Ml Syringe) 1 mg IV NOW STA Stop: 01/28/23 04:26 Last Admin: 01/28/23 04:55 Dose: 1 mg Documented By: GERMAN Sodium Chloride (Nss) 1,000 mls @ 999 mls/hr IV .Q1H1M ONE Stop: 01/28/23 01:33 Last Infusion: 01/28/23 01:52 Dose: Infused Documented By: Admin: 01/28/23 00:47 Dose: 999 mls/hr Documented By: GERMAN Lorazepam (Lorazepam 1 Mg/1 Ml Syr Ed Inj Use) 1 mg IV ONE STA Stop: 01/28/23 03:48 Last Admin: 01/28/23 03:51 Dose: 1 mg Documented By: GERMAN Ondansetron HCl (Ondansetron Inj 2 Mg/Ml 2 Ml Vial) 4 mg IV NOW STA Stop: 01/28/23 00:34 Last Admin: 01/28/23 00:47 Dose: 4 mg Documented By: GERMAN Imaging Data Radiologist's Impression: Cervical Spine CT 01/28/23 00:33 Exam(s): CT C SPINE EXAM: CT Cervical Spine Without Intravenous Contrast CLINICAL HISTORY: Reason for exam: head injury, right arm/neck pain/paresthesias. TECHNIQUE: Axial computed tomography images of the cervical spine without intravenous contrast. CTDI is 37.01 mGy and DLP is 702.46 mGy-cm. Automated exposure control was utilized for the study. A dose lowering technique was utilized adhering to the principles of ALARA. COMPARISON: No relevant prior studies available. FINDINGS: Vertebrae: Unremarkable. No acute fracture. Discs/spinal canal/neural foramina: Moderate degenerative disc disease at the C4-5, C5-6, and C6-7 levels without significant bony spinal canal stenosis at any cervical level. Soft tissues: Unremarkable. IMPRESSION: No acute findings in the cervical spine. Electronically signed by: Evelio Villeda M.D. 01/28/23 02:[address] 01/28/23 00:33 Exam(s): CT HEAD Without Contrast EXAM: CT Head Without Intravenous Contrast CLINICAL HISTORY: Reason for exam: head injury, right arm/neck pain/paresthesias. TECHNIQUE: Axial computed tomography images of the head/brain without intravenous contrast. CTDI is 37.01 mGy and DLP is 702.46 mGy-cm. Automated exposure control was utilized for the study. A dose lowering technique was utilized adhering to the principles of ALARA. COMPARISON: 03/22/2022 FINDINGS: Brain: Heterotropic smith matter along the bilateral lateral ventricles unchanged from prior exam. No hemorrhage. No significant white matter disease. Ventricles: Unremarkable. No ventriculomegaly. Bones/joints: Unremarkable. No acute fracture. Soft tissues: Unremarkable. Sinuses: Unremarkable as visualized. No acute sinusitis. Mastoid air cells: Unremarkable as visualized. No mastoid effusion. IMPRESSION: No acute findings in the head/brain. Electronically signed by: Evelio Villeda M.D. 01/28/23 02:[address] 01/28/23 01:04 Exam(s): CT RIGHT SHOULDER Without Contrast EXAM: CT Right Upper Extremity Without Intravenous Contrast, Shoulder CLINICAL HISTORY: Reason for exam: fracture/dislocation. TECHNIQUE: Axial computed tomography images of the right shoulder without intravenous contrast. CTDI is 19.67 mGy and DLP is 406.92 mGy-cm. Automated exposure control was utilized for the study. A dose lowering technique was utilized adhering to the principles of ALARA. COMPARISON: No relevant prior studies available. FINDINGS: Bones/joints: Severely comminuted right humeral neck fracture with anterior dislocation of the humeral head relative to the glenoid. Coracoid process fracture. Soft tissues: Unremarkable. Lung apices: Right base atelectasis. IMPRESSION: 1. Severely comminuted right humeral neck fracture with anterior dislocation of the humeral head relative to the glenoid. 2. Coracoid process fracture. Electronically signed by: Evelio Villeda M.D. 01/28/23 02:42 AM Discharge Plan Visit Data Chief Complaint: Seizure Stated Complaint: SEIZURE,SHOULDER PAIN ED Provider: Akash Don Discharge Problem: Fracture of humeral head, right, closed, Dislocation of shoulder, right, closed, Fracture of coracoid process of right scapula, Seizure Discharge Instructions Interventions: ED Discharge Assessment Last Done: 01/28/23 05:40 Forms Stand Alone Forms: [facility] [employer] Prescriptions Prescriptions: No Action lamotrigine 150 mg tablet 300 mg PO BID 90 Days Qty: 360 1RF lamotrigine 25 mg tablet,disintegrating 25 mg PO DAILY PRN (Reason: aura, anxiety) 30 Days Qty: 30 5RF cyanocobalamin (vitamin B-12) 1,000 mcg/mL solution 1,000 mcg IM MONTHLY Qty: 1 11RF (DME) BD Eclipse Luer-Navarro 3 mL 23 x 1" syringe See Rx Instructions .Route Qty: 4 3RF Rx Instructions: As directed for use with B12 injections Emgality Pen 120 mg/mL pen injector 120 mg subcut MONTHLY Qty: 1 5RF Rx Instructions: TAKES ON THE OF THE MONTH Nurtec ODT 75 mg tablet,disintegrating 75 mg PO DIRECTED PRN (Reason: Migraine Headache) 0RF baclofen 10 mg tablet 10 mg PO BID PRN (Reason: muscle spasm) Qty: 60 3RF losartan-hydrochlorothiazide 50-12.5 mg tablet 1 tab PO QAM multivitamin [Daily Multi-Vitamin] Tablet 1 tab PO QAM oxcarbazepine [Trileptal] 300 mg tablet 300 mg PO BID Qty: 60 8RF gabapentin 300 mg capsule 300 mg PO TID Rx Instructions: 1 cap po TID; ondansetron 4 mg tablet,disintegrating 4 mg translingual TID PRN (Reason: nausea and vomiting) sertraline 100 mg tablet 100 mg PO QAM lorazepam 0.5 mg tablet 0.5 mg PO DAILY PRN (Reason: Anxiety) omeprazole 20 mg capsule,delayed release(DR/EC) 20 mg PO QAM Xeljanz XR 11 mg tablet extended release 24 hr 11 mg PO HS hydrocodone-acetaminophen 7.5-325 mg tablet 1 tab PO QID PRN (Reason: Pain) ibuprofen 600 mg tablet 600 mg PO QID PRN (Reason: Pain) Referrals Referrals: Elan Beauchamp, [Primary Care Provider] - Discharge Problem: Fracture of humeral head, right, closed Qualifiers: Encounter type: initial encounter Qualified Code(s): S42.291A - Other displaced fracture of upper end of right humerus, initial encounter for closed fracture Dislocation of shoulder, right, closed Qualifiers: Encounter type: initial encounter Qualified Code(s): S43.004A - Unspecified dislocation of right shoulder joint, initial encounter Fracture of coracoid process of right scapula Qualifiers: Encounter type: initial encounter Fracture type: closed Fracture alignment: d isplaced Qualified Code(s): S42.131A - Displaced fracture of coracoid process, right shoulder, initial encounter for closed fracture
[2023-01-28 01:03] LABS: Basophils # (auto) 0.02 K/uL (0.00-0.20); Basophils % (auto) 0.3 %; Eosinophils # (auto) 0.03 K/uL (0.00-0.50); Eosinophils % (auto) 0.5 %; Hemoglobin 12.4 g/dl (12.0-16.0); Immature Granulocytes # (auto) 0.01 K/uL (0.01-0.20); Immature Granulocytes % (auto) 0.2 %; Lymphocytes # (auto) 1.37 K/uL (1.20-3.40); Lymphocytes % (auto) 21.2 %; Mean Corpuscular Hemoglobin 28.9 pg (25.0-34.0); Mean Corpuscular Hgb Conc 33.5 g/dL (32.0-36.0); Mean Corpuscular Volume 86.2 fL (80.0-100.0); Mean Platelet Volume 9.4 fL (9.4-12.4); Monocytes % (auto) 9.3 %; Neutrophils # (auto) 4.43 K/uL (1.40-6.50); Neutrophils % (auto) 68.5 %; Platelet Count 326 K/uL (130-400); RDW Coefficient of Variation 13.2 % (11.5-14.5); RDW Standard Deviation 41.3 fL (36.4-46.3); Red Blood Count 4.29 M/uL (4.20-5.40); White Blood Count 6.46 K/ul (4.8-10.8)
[2023-01-28 01:29] LABS: Albumin Level 4.3 gm/dl (3.4-5.0); BUN Creatinine Ratio 16.8 (10-20); Bilirubin,Total 0.3 mg/dl (0.2-1.0); Calcium 9.3 mg/dl (8.6-10.3); Creatinine Clr Calc Pharmacy 68.6 ml/min; Est GFR (African American) 72.6 ml/min; Est GFR (Non-African American) 62.6 ml/min; Total Protein 8.4 gm/dl (6.0-8.3)
[2023-01-28 01:55] LABS: Bilirubin Direct 0.1 mg/dl (0-0.2); Potassium 3.4 mmol/L (3.5-5.1)
--- NOTE | 2023-01-28 02:37 | CT Scan Report ---
Exam(s): CT HEAD Without Contrast EXAM: CT Head Without Intravenous Contrast CLINICAL HISTORY: Reason for exam: head injury, right arm/neck pain/paresthesias. TECHNIQUE: Axial computed tomography images of the head/brain without intravenous contrast. CTDI is 37.01 mGy and DLP is 702.46 mGy-cm. Automated exposure control was utilized for the study. A dose lowering technique was utilized adhering to the principles of ALARA. COMPARISON: 03/22/2022 FINDINGS: Brain: Heterotropic smith matter along the bilateral lateral ventricles unchanged from prior exam. No hemorrhage. No significant white matter disease. Ventricles: Unremarkable. No ventriculomegaly. Bones/joints: Unremarkable. No acute fracture. Soft tissues: Unremarkable. Sinuses: Unremarkable as visualized. No acute sinusitis. Mastoid air cells: Unremarkable as visualized. No mastoid effusion. IMPRESSION: No acute findings in the head/brain. Electronically signed by: Evelio Villeda M.D. 01/28/23 02:36 AM
--- NOTE | 2023-01-28 02:39 | CT Scan Report ---
Exam(s): CT C SPINE EXAM: CT Cervical Spine Without Intravenous Contrast CLINICAL HISTORY: Reason for exam: head injury, right arm/neck pain/paresthesias. TECHNIQUE: Axial computed tomography images of the cervical spine without intravenous contrast. CTDI is 37.01 mGy and DLP is 702.46 mGy-cm. Automated exposure control was utilized for the study. A dose lowering technique was utilized adhering to the principles of ALARA. COMPARISON: No relevant prior studies available. FINDINGS: Vertebrae: Unremarkable. No acute fracture. Discs/spinal canal/neural foramina: Moderate degenerative disc disease at the C4-5, C5-6, and C6-7 levels without significant bony spinal canal stenosis at any cervical level. Soft tissues: Unremarkable. IMPRESSION: No acute findings in the cervical spine. Electronically signed by: Evelio Villeda M.D. 01/28/23 02:38 AM
[2023-01-28] MEDS ORDERED: HYDROmorphone INJ 0.5 MG/0.5 ML SYR IV STA (02:40)
--- NOTE | 2023-01-28 02:43 | CT Scan Report ---
Exam(s): CT RIGHT SHOULDER Without Contrast EXAM: CT Right Upper Extremity Without Intravenous Contrast, Shoulder CLINICAL HISTORY: Reason for exam: fracture/dislocation. TECHNIQUE: Axial computed tomography images of the right shoulder without intravenous contrast. CTDI is 19.67 mGy and DLP is 406.92 mGy-cm. Automated exposure control was utilized for the study. A dose lowering technique was utilized adhering to the principles of ALARA. COMPARISON: No relevant prior studies available. FINDINGS: Bones/joints: Severely comminuted right humeral neck fracture with anterior dislocation of the humeral head relative to the glenoid. Coracoid process fracture. Soft tissues: Unremarkable. Lung apices: Right base atelectasis. IMPRESSION: 1. Severely comminuted right humeral neck fracture with anterior dislocation of the humeral head relative to the glenoid. 2. Coracoid process fracture. Electronically signed by: Evelio Villeda M.D. 01/28/23 02:42 AM
[2023-01-28] MEDS ORDERED: LORazepam 1 MG/1 ML SYR ED Inj Use IV STA (03:47)
[2023-01-28] MEDS ORDERED: diphenhydrAMINE 50 MG/ML VIAL IV STA (04:25)
[2023-01-28] MEDS ORDERED: NSS + 20MEQ KCL 20 MEQ/1,000 ML BAG IV SCH (04:30)
[2023-01-28 05:02] LABS: Magnesium 1.9 mg/dl (1.7-2.4)
--- NOTE | 2023-01-28 05:08 | History & Physical Report ---
Date of Service January 28, 2023 Assessment & Plan (1) Seizure: (2) Fracture of coracoid process of right scapula: (3) Dislocation of shoulder, right, closed: (4) Fracture of humeral head, right, closed: (5) Sjogren's disease: (6) Raynauds disease: (7) Mixed connective tissue disease: (8) Depression with anxiety: (9) Epilepsy: (10) Migraine without aura, not intractable, without status migrainosus: (11) Hypertension: (12) Hypokalemia: Plan Tonic-clonic seizure/epilepsy/depression with anxiety- Unclear trigger, however, patient reports that she has been under significant stress, and dietary pattern has not been as usual Continue gabapentin, lamotrigine, oxcarbazepine, sertraline Seizure precautions CT head and cervical spine negative NPO except essential medications Closed fracture of coracoid process of right scapula, closed fracture of right humeral head, anterior dislocation of right shoulder- Patient will be admitted to [facility] for pain management until appropriate transfer for orthopedic surgery can be arranged Orthopedic surgery Dr. 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 twice daily as needed to 3 times daily Mixed connective tissue disease/Raynaud's/Sjogren's syndrome- Pain control with above Continue Xeljanz XR 11 mg at bedtime Acetaminophen 1 g IV every 8 hours as needed mild pain or fever Hypokalemia- Potassium 3.4 Add magnesium level NSS + KCl 20 mill equivalents at 100 mL/h Serial laboratories in a.m. History of Present Illness Chief Complaint: The patient presents to the emergency department with complaint of severe right shoulder pain that began acutely following a 15-minute tonic clonic seizure while at home. Primary Care Provider: Elan Beauchamp DO The patient is a 57-year-old female with a past medical history including seizure disorder, Sjogren syndrome, hypertension, depression, B12 deficiency, vitamin D deficiency, Raynaud's disease, mixed connective tissue disease, depression with anxiety and migraine without aura. She reportedly had a tonic- clonic seizure of about 15 minutes duration as witnessed by her . Upon presentation to the emergency department, she was noted to have severe right shoulder swelling and complaining of severe right shoulder pain. X-rays and CT of right shoulder revealed a right humeral neck fracture with anterior dislocation of the humeral head relative to the glenoid, and coracoid process fracture. The case had been discussed by the emergency department with orthopedic surgery, Dr. Avila, and possible transfer is being discussed with [facility] orthopedic surgery, however, patient will be need to be admitted to [facility] for pain control until appropriate transfer can be arranged. The patient reports not having had a seizure for the past 3 years prior to this evening Allergies Allergy/AdvReac Type Severity Reaction Status Date / Time erythromycin base Allergy Intermediate RASH Verified 01/28/23 01:35 Home Medications Medication Instructions Recorded Confirmed Type losartan 50 mg-hydrochlorothiazide 1 tab PO QAM 02/23/19 01/28/23 History 12.5 mg tablet multivitamin (Daily Multi-Vitamin 1 tab PO QAM 02/23/19 01/28/23 History tablet) baclofen 10 mg tablet 10 mg PO BID PRN muscle spasm #60 05/18/21 01/28/23 Rx tabs oxcarbazepine 300 mg tablet 300 mg PO BID #60 tabs 08/18/21 01/28/23 Rx (Trileptal) gabapentin 300 mg capsule 300 mg PO TID 03/22/22 01/28/23 History lorazepam 0.5 mg tablet 0.5 mg PO DAILY PRN Anxiety 03/22/22 01/28/23 History omeprazole 20 mg capsule,delayed 20 mg PO QAM 03/22/22 01/28/23 History release ondansetron 4 mg disintegrating 4 mg translingual TID PRN nausea 03/22/22 01/28/23 History tablet and vomiting sertraline 100 mg tablet 100 mg PO QAM 03/22/22 01/28/23 History tofacitinib 11 mg tablet,extended 11 mg PO HS 03/22/22 01/28/23 History release 24 hr (Xeljanz XR) lamotrigine 150 mg tablet 300 mg (2 x 150 mg) PO BID 90 days 06/25/22 01/28/23 Rx #360 tabs lamotrigine 25 mg disintegrating 25 mg PO DAILY PRN aura, anxiety 08/13/22 01/28/23 Rx tablet 30 days #30 tabs cyanocobalamin (vitamin B-12) 1,000 mcg IM MONTHLY monthly #1 mL 10/15/22 01/28/23 Rx 1,000 mcg/mL injection solution syringe with needle 3 mL 23 x 1" #4 ea 10/15/22 Rx (BD Eclipse Luer-Navarro) galcanezumab-gnlm 120 mg/mL 120 mg subcut MONTHLY #1 mL 11/10/22 01/28/23 Rx subcutaneous pen injector (Emgality Pen) hydrocodone 7.5 mg-acetaminophen 1 tab PO QID PRN Pain 01/28/23 01/28/23 History 325 mg tablet ibuprofen 600 mg tablet 600 mg PO QID PRN Pain 01/28/23 01/28/23 History Past Med/Surg History Medical History (Updated 01/28/23 @ 04:35 by Akash Don MD) UTI (urinary tract infection) Sepsis Abnormal urinalysis Lyme disease, acute History of COVID-19 09/2021, home test, tx w/paxlovid>resolved Raynauds disease Sjogren's disease Mixed connective tissue disease Anemia hx Hypertension Depression with anxiety Migraine without aura, not intractable, without status migrainosus Epilepsy most recent seizure 03/2021 Seizure Surgical History Hx of colonoscopy History of esophagogastroduodenoscopy (EGD) Hx laparoscopic cholecystectomy History of hysteroscopy S/P tubal ligation Family History Sister Myocardial infarction Father Myocardial infarction Denies family history of Ovarian cancer Prostate cancer Breast cancer Colorectal cancer Social History Smoking Status: Never smoker Second Hand Exposure: No; Do You Dip or Chew Tobacco: No; Hx Alcohol Use: No Hx Substance Use: No Preferred Language: Cymraes Communication Ability: Effective Bottom Loader Required: No Beliefs That Will Affect Care: None Current Living Situation: Significant Other Feels Safe at Home: Yes Assistive Devices: Denture - Upper and Denture - Lower Review of Systems Review of Systems: The patient denies chest pain, palpitations, shortness of breath, dyspnea on exertion, cough, lower extremity swelling, sore throat, fevers, chills, sweats, nausea, vomiting, diarrhea , constipation, abdominal pain, pelvic pain, blood in urine or stool, dysuria, urinary frequency or urgency, focal weakness, numbness or tingling in left arm or bilateral legs, generalized arthralgias or myalgias, back or neck pain, or night sweats. The review of systems is otherwise negative other than for that already noted above, and at least 10 systems have been reviewed. Physical Exam Physical Exam: The patient is awake, alert and oriented 3, well developed and well nourished, normocephalic and atraumatic, lying in bed and in severe right shoulder pain HEENT--PERRL, EOMI, mucous membranes and oropharynx normal Neck--supple. No JVD. No bruits. Thyroid normal, trachea midline, no adenopathy. Heart--normal S1 and S2. No murmurs, rubs or gallops. Lungs--clear bilaterally, no respiratory distress, no accessory muscle use. Abdomen--normal bowel sounds and soft. Nontender. Nondistended Extremities--no edema Dermatologic--normal skin turgor, normal color, no abnormal lymph nodes, no rash. Neurologic--cranial nerves II through XII grossly intact. Rheumatologic--limited exam due to right shoulder pain Psychiatric--normal affect. Results & Data Results & Data Vital Signs (Past 12 Hours) Vital Signs Temp Pulse Pulse Resp BP BP Pulse Ox 01/28/23 04:08 95 H 01/28/23 02:00 89 23 100 01/28/23 01:52 12 100 01/28/23 01:51 56 L 01/28/23 01:31 146/94 H 01/28/23 01:31 89 28 H 94 01/28/23 01:30 87 23 95 01/28/23 01:00 91 H 18 163/98 H 01/28/23 00:31 90 23 155/101 H 01/28/23 00:30 94 H 23 01/28/23 00:15 94 H 25 H 153/106 H 94 01/28/23 00:15 01/28/23 00:14 94 H 27 H 94 01/28/23 00:14 153/106 H 01/28/23 00:13 95 H 01/28/23 00:04 36.8 C 100 H 20 154/101 H 98 O2 Del Method O2 Flow Rate 01/28/23 04:08 01/28/23 02:00 01/28/23 01:52 Oxymask 10 01/28/23 01:51 Nasal Cannula, Oxymask 4 01/28/23 01:31 01/28/23 01:31 01/28/23 01:30 01/28/23 01:00 01/28/23 00:31 01/28/23 00:30 01/28/23 00:15 Room Air 01/28/23 00:15 Room Air 01/28/23 00:14 01/28/23 00:14 01/28/23 00:13 01/28/23 00:04 Room Air Laboratory Results Laboratory Results WBC 6.46 K/ul (4.8-10.8) 01/28/23 00:36 RBC 4.29 M/uL (4.20-5.40) 01/28/23 00:36 Hgb 12.4 g/dl (12.0-16.0) 01/28/23 00:36 Hct 37.0 % (37.0-47.0) 01/28/23 00:36 MCV 86.2 fL (80.0-100.0) 01/28/23 00:36 MCH 28.9 pg (25.0-34.0) 01/28/23 00:36 MCHC 33.5 g/dL (32.0-36.0) 01/28/23 00:36 RDW Std Deviation 41.3 fL (36.4-46.3) 01/28/23 00:36 RDW Coeff of [place] 13.2 % (11.5-14.5) 01/28/23 00:36 Plt Count 326 K/uL (130-400) 01/28/23 00:36 MPV 9.4 fL (9.4-12.4) 01/28/23 00:36 Immature Gran % (Auto) 0.2 % 01/28/23 00:36 Neut % (Auto) 68.5 % 01/28/23 00:36 Lymph % (Auto) 21.2 % 01/28/23 00:36 Divide % (Auto) 9.3 % 01/28/23 00:36 Eos % (Auto) 0.5 % 01/28/23 00:36 Baso % (Auto) 0.3 % 01/28/23 00:36 Neut # (Auto) 4.43 K/uL (1.40-6.50) 01/28/23 00:36 Lymph # (Auto) 1.37 K/uL (1.20-3.40) 01/28/23 00:36 Divide # (Auto) 0.60 K/uL (0.11-0.59) H 01/28/23 00:36 Eos # (Auto) 0.03 K/uL (0.00-0.50) 01/28/23 00:36 Baso # (Auto) 0.02 K/uL (0.00-0.20) 01/28/23 00:36 Immature Gran # (Auto) 0.01 K/uL (0.01-0.20) 01/28/23 00:36 Sodium 138 mmol/L (136-145) 01/28/23 00:36 Potassium 3.4 mmol/L (3.5-5.1) L 01/28/23 00:36 Chloride 106 mmol/L (98-107) 01/28/23 00:36 Carbon Dioxide 25 mmol/L (21-32) 01/28/23 00:36 Anion Gap 7 (3-11) 01/28/23 00:36 BUN 17 mg/dl (6-23) 01/28/23 00:36 Creatinine 1.01 mg/dl (0.6-1.2) 01/28/23 00:36 Est Cr Clr Drug Dosing 68.6 ml/min 01/28/23 00:36 Est GFR ( Amer) 72.6 ml/min 01/28/23 00:36 Est GFR (Non-Af Amer) 62.6 ml/min 01/28/23 00:36 BUN/Creatinine Ratio 16.8 (10-20) 01/28/23 00:36 Glucose 116 mg/dl (70-99(Fasting)) H 01/28/23 00:36 Calcium 9.3 mg/dl (8.6-10.3) 01/28/23 00:36 Total Bilirubin 0.3 mg/dl (0.2-1.0) 01/28/23 00:36 Direct Bilirubin 0.1 mg/dl (0-0.2) 01/28/23 00:36 AST 25 U/L (13-39) 01/28/23 00:36 ALT 26 U/L (7-52) 01/28/23 00:36 Alkaline Phosphatase 97 U/L (34-104) 01/28/23 00:36 Total Protein 8.4 gm/dl (6.0-8.3) H 01/28/23 00:36 Albumin 4.3 gm/dl (3.4-5.0) 01/28/23 00:36 Phenytoin < 3.0 mcg/ml (10-20) L 01/28/23 00:[address] 01/28/23 00:33 Exam(s): CT C SPINE EXAM: CT Cervical Spine Without Intravenous Contrast CLINICAL HISTORY: Reason for exam: head injury, right arm/neck pain/paresthesias. TECHNIQUE: Axial computed tomography images of the cervical spine without intravenous contrast. CTDI is 37.01 mGy and DLP is 702.46 mGy-cm. Automated exposure control was utilized for the study. A dose lowering technique was utilized adhering to the principles of ALARA. COMPARISON: No relevant prior studies available. FINDINGS: Vertebrae: Unremarkable. No acute fracture. Discs/spinal canal/neural foramina: Moderate degenerative disc disease at the C4-5, C5-6, and C6-7 levels without significant bony spinal canal stenosis at any cervical level. Soft tissues: Unremarkable. IMPRESSION: No acute findings in the cervical spine. Electronically signed by: Evelio Villeda M.D. 01/28/23 02:[address] 01/28/23 00:33 Exam(s): CT HEAD Without Contrast EXAM: CT Head Without Intravenous Contrast CLINICAL HISTORY: Reason for exam: head injury, right arm/neck pain/paresthesias. TECHNIQUE: Axial computed tomography images of the head/brain without intravenous contrast. CTDI is 37.01 mGy and DLP is 702.46 mGy-cm. Automated exposure control was utilized for the study. A dose lowering technique was utilized adhering to the principles of ALARA. COMPARISON: 03/22/2022 FINDINGS: Brain: Heterotropic smith matter along the bilateral lateral ventricles unchanged from prior exam. No hemorrhage. No significant white matter disease. Ventricles: Unremarkable. No ventriculomegaly. Bones/joints: Unremarkable. No acute fracture. Soft tissues: Unremarkable. Sinuses: Unremarkable as visualized. No acute sinusitis. Mastoid air cells: Unremarkable as visualized. No mastoid effusion. IMPRESSION: No acute findings in the head/brain. Electronically signed by: Evelio Villeda M.D. 01/28/23 02:[address] 01/28/23 01:04 Exam(s): CT RIGHT SHOULDER Without Contrast EXAM: CT Right Upper Extremity Without Intravenous Contrast, Shoulder CLINICAL HISTORY: Reason for exam: fracture/dislocation. TECHNIQUE: Axial computed tomography images of the right shoulder without intravenous contrast. CTDI is 19.67 mGy and DLP is 406.92 mGy-cm. Automated exposure control was utilized for the study. A dose lowering technique was utilized adhering to the principles of ALARA. COMPARISON: No relevant prior studies available. FINDINGS: Bones/joints: Severely comminuted right humeral neck fracture with anterior dislocation of the humeral head relative to the glenoid. Coracoid process fracture. Soft tissues: Unremarkable. Lung apices: Right base atelectasis. IMPRESSION: 1. Severely comminuted right humeral neck fracture with anterior dislocation of the humeral head relative to the glenoid. 2. Coracoid process fracture. Electronically signed by: Evelio Villeda M.D. 01/28/23 02:42 AM Code Status & VTE Plan Code Status Full code VTE Prophylaxis Plan VTE Prophylaxis will be ordered: Yes PG Care Time/CCT Total # of Minutes Spent Total Time Spent with Patient: Total time spent is greater than 50% in coordination of care (as documented) at patient's floor/unit and/or counseling patient: Coding Level of Care Code 55867 INT INP/OBS CARE 3/75MIN Diagnoses Seizure R56.9 Fracture of coracoid process of right scapula S42.131A Encounter type: initial encounter Fracture alignment: displaced Fracture type: closed Dislocation of shoulder, right, closed S43.004A Encounter type: initial encounter Fracture of humeral head, right, closed S42.291A Encounter type: initial encounter Sjogren's disease M35.00 Raynauds disease I73.00 Mixed connective tissue disease M35.1 Depression with anxiety F41.8 Epilepsy G40.909 Migraine without aura, not intractable, without status migrainosus G43.009 Hypertension I10 Hypokalemia E87.6 (2) Fracture of coracoid process of right scapula Encounter type: initial encounter Fracture alignment: displaced Fracture type: closed Qualified Code(s): S42.131A - Displaced fracture of coracoid process, right shoulder, initial encounter for closed fracture (3) Dislocation of shoulder, right, closed Encounter type: initial encounter Qualified Code(s): S43.004A - Unspecified dislocation of right shoulder joint, initial encounter (4) Fracture of humeral head, right, closed Encounter type: initial encounter Qualified Code(s): S42.291A - Other displaced fracture of upper end of right humerus, initial encounter for closed fracture
--- OUTSIDE RECORDS SUMMARY | 2023-01-28 05:18 | External Medical Summary | Summary of Care ---
Author Name Unknown Organization [facility] Address [address] [facility] [address] Phone [phone] Care Team Providers Care Information Technology Program Manager Name Role Phone Elan Beauchamp DO Primary Care Provider Reason for Visit * Reason Comments Outpatient Testing Encounter Details Date Type Department Care Team Description 11/10/2022 Laboratory Laboratory, [facility] [address] [facility] [place] [id number] [facility] [address] [facility] [place] [address] Inflammatory polyarthritis (HCC); Sjogren's syndrome with keratoconjunctivitis sicca (HCC) Allergies Active Allergy Reactions Severity Noted Date Comments Erythromycin 02/21/2003 Levofloxacin 01/20/2021 Lisinopril 01/20/2021 Other reaction(s): cough documented as of this encounter (statuses as of 11/10/2022) Medications Medication Sig Dispensed Refills Start Date End Date Status MULTIVITAL PO TABS 1 time daily 0 Acti ve HYDROCODONE-ACETAMINO PHEN 5-325 MG PO TABS 1 or 2 as needed for migraines 0 Active LAMICTAL 200 MG PO TABS 1 twice daily 0 Active TOPIRAMATE 100 MG PO TABS 1 twice daily 0 Active TRAZODONE HCL 50 MG PO TABS 1 daily 0 Active lamoTRIgine 25 MG Oral Tablet Take 1 Tablet by mouth in the morning and 1 Tablet before bedtime. 0 Active Losartan Potassium-HCTZ 100-12.5 MG per tablet Take 1 Tablet by mouth in the morning. 0 Active naratriptan (AMERGE) 2.5 MG Tablet Take 1 Tablet by mouth as needed for Migraine. 0 Active LORazepam 0.5 MG Oral Tablet Take 1 Tablet by mouth every 6 hours as needed. 0 Active Verapamil HCl ER 240 MG Oral Capsule Extended Release 24 Hour Take 1 Capsule by mouth in the morning. 1 daily. 0 04/20/2020 Active Restasis 0.05 % Ophthalmic Emulsion daily 0 05/10/2020 Activ e Ibuprofen 600 MG Oral Tablet (Motrin) As needed 0 07/03/2020 Active Gabapentin 300 MG Oral Capsule (Neurontin) Take 1 Capsule by mouth in the morning. 1 daily. 0 07/03/2020 Active Pilocarpine HCl 5 MG Oral Tablet (Salagen) Take 1 Tab by mouth 3 times a day. 90 Tab 6 07/17/2020 Active Emgality 120 MG/ML Subcutaneous Solution Auto-injector 0 12/24/2020 Active OXcarbazepine 150 MG Oral Tablet (Trileptal) 0 01/02/2021 Active Meloxicam 15 MG Oral Tablet Take 1 tablet by mouth once daily 90 Tablet 1 10/09/2021 Active Baclofen 10 MG Oral Tablet (Lioresal) TAKE 1 TABLET BY MOUTH TWICE DAILY NEEDED FOR MUSCLE SPASM 0 08/31/2021 Active lamoTRIgine 150 MG Oral Tablet (LaMICtal) Take 2 Tablets by mouth in the morning and 2 Tablets before bedtime. 0 08/03/2021 Active Omeprazole 10 MG Oral Capsule Delayed Release (Prilosec) Take 1 Capsule by mouth in the morning. 0 09/10/2021 Active Ondansetron 4 MG Oral Tablet Disintegrating (Zofran) DISSOLVE 1 TABLET IN MOUTH THREE TIMES DAILY NEEDED FOR NAUSEA AND VOMITING 0 09/10/2021 Active Rizatriptan Benzoate 10 MG Oral Tablet TAKE 1 TABLET BY MOUTH AT ONSET OF HEADACHE, IF NO RELIEF, MAY REPEAT IN 2 HOURS NEEDED 0 08/20/2021 Active Sertraline HCl 50 MG Oral Tablet (Zoloft) 0 09/26/2021 Acti ve Xeljanz XR 11 MG Oral Tablet Extended Release 24 Hour (Tofacitinib Citrate ER)Indications:Inflam matory polyarthritis (HCC) Take one tablet by mouth daily. 30 Tablet 4 09/10/2022 Active predniSONE 5 MG Oral Tablet (Deltasone) Take 4 tabs daily for 4 days, then 3 tabs daily for 4 days, 2 tabs daily for 4 days then 5mg daily for 4 days then stop 40 Tablet 2 11/10/2022 Active Hydroxychloroquine Sulfate 200 MG Oral Tablet (Plaquenil) Take 2 Tablets by mouth at bedtime. 180 Tablet 4 11/10/2022 Active documented as of this encounter (statuses as of 11/10/2022) Active Problems Problem Noted Date Rotator cuff arthropathy of right should er 01/20/2021 Inflammatory polyarthritis 11/07/2017 Undifferentiated connective tissue disea se 06/16/2016 Long-term use of immunosuppressant medic ation 06/16/2016 Sjogren's syndrome with keratoconjunctiv itis sicca 06/16/2016 Depression with anxiety 05/13/2016 RSD lower limb 02/15/2014 Convulsions 11/12/2004 Osteoarthritis-Generalized documented as of this encounter (statuses as of 11/10/2022) Immunizations Name Administration Dates Next Due COVID-19 mRNA, LNP-s, No Pre serve, 2-Dose Series ([employer]) 11/15/2020,05/14/2020,04/21/2020 Seasonal Influenza, QUAD, wi th Preserv, 6 mons & Above, 0.5 mL, IM 12/24/2020 Seasonal Influenza, Quadriva lent,with Preserve, 3 yr & Above, IM 10/28/2022,11/27/2021 documented as of this encounter Social History Tobacco Use Types Packs/Day Years Used Date Smoking Tobacco: Never Smokeless Tobacco: Never Alcohol Use Standard Drinks/Week Comments No 0 (1 standard drink = 0.6 oz pur e alcohol) Sex Assigned at Date Recorded Not on file Job Start Date Occupation Industry Not on file Not on file Not on file documented as of this encounter Plan of Treatment Upcoming Encounters Date Type Specialty Care Team Description 05/25/2023 Office Visit Rheumatology Karthik Rodriguez MD [address] [facility] [place] [address] Pending Results Name Type Priority Associated Diagnoses Date /Time COMPREHENSIVE METABOLIC PANEL Lab Routine Inflammatory polyarthritis (HCC) Sjogren's syndrome with keratoconjunctivitis sicca (HCC) 11/10/2022 11:33 AM EDT Health Maintenance Due Date Last Done Comments Hepatitis B (1 of 3 - 3-dose series) 1967 Pneumococcal Vaccine: Pediatrics (0 to 5 Years) and At-Risk Patients (6 to 64 Years) (1 - PCV) 10/11/1973 Depression Screening 1979 HIV Screening 10/11/1982 DTaP,Tdap,and Td Vaccines (1 - Tdap) 10/11/1986 Zoster Vaccines (1 of 2) 10/11/1986 Pap Smear 10/11/1988 Cervical Cancer Screening 10/11/1997 HPV/Co-Test 10/11/1997 Mammogram 2007 Cologuard 10/11/2012 Colonoscopy 10/11/2012 Colorectal Cancer Screening 10/11/2012 Fecal Occult Blood Test 10/11/2012 Sigmoidoscopy 10/11/2012 COVID-19 Vaccine (4 - 2022-2 4 season) 2022 11/15/2020, 05/14/2020, 04/21/2020 Lipid Panel 06/15/2027 06/14/2022, 10/01/2021, 12/22/2020 Influenza Vaccine (FLU shot) Completed , 11/27/2021, 12/24/2020 GARDASIL-HPV IMMUNIZATION SERIES Aged Out No longer eligible b ased on patient's age to complete this topic MENINGOCOCCAL (MENACTRA/MENVEO) Aged Out No longer eligible b ased on patient's age to complete this topic documented as of this encounter Medical Devices Not on filedocumented as of this encounter Procedures Procedure Name Priority Date/Time Associated Diagnosis Comments DIFFERENTIAL, AUTOMATED Routine 11/10/2022 11:33 AM EDT Inflammatory polyarthritis (HCC) Sjogren's syndrome with keratoconjunctivitis sicca (HCC) CBC Routine 11/10/2022 11:33 AM EDT Inflammatory polyarthritis (HCC) Sjogren's syndrome with keratoconjunctivitis sicca (HCC) CBC Routine 11/10/2022 11:33 AM EDT Inflammatory polyarthritis (HCC) Sjogren's syndrome with keratoconjunctivitis sicca (HCC) documented in this encounter Results * DIFFERENTIAL, AUTOMATED (11/10/2022 11:33 AM EDT) WBC 5.05 4.00 - 10.80 K/uL 11/10/2022 11:40 AM EDT [facility] Neutrophils % 50.5 40.0 - 75.0 % 11/10/2022 11:40 AM EDT [facility] Lymphocytes % 37.2 18.0 - 42.0 % 11/10/2022 11:40 AM EDT [facility] Monocytes % 10.1 1.0 - 11.0 % 11/10/2022 11:40 AM EDT [facility] Eosinophils % 2.0 0.0 - 6.0 % 11/10/2022 11:40 AM EDT [facility] Basophils % 0.2 0.0 - 2.0 % 11/10/2022 11:40 AM EDT [facility] Absolute Neutrophils 2.55 1.80 - 7.70 K/uL 11/10/2022 11:40 AM EDT [facility] Absolute Lymphocytes 1.88 1.00 - 4.80 K/ul 11/10/2022 11:40 AM EDT [facility] Absolute Monocytes 0.51 0.00 - 1.10 K/uL 11/10/2022 11:40 AM EDT [facility] Absolute Eosinophils 0.10 0.00 - 0.70 K/uL 11/10/2022 11:40 AM EDT [facility] Absolute Basophils 0.01 0.00 - 0.20 K/uL 11/10/2022 11:40 AM EDT [facility] Blood Venous blood specimen / Unknown Venipuncture / Unknown 11/10/2022 11:33 AM EDT 11/10/2022 11:33 AM EDT Karthik Rodriguez MD LAB BLOOD ORDERABLE S [facility] [place] [address] * (ABNORMAL) CBC (11/10/2022 11:33 AM EDT) WBC 5.05 4.00 - 10.80 K/uL 11/10/2022 11:40 AM EDT [facility] RBC 4.20 3.85 - 5.15 M/uL 11/10/2022 11:40 AM EDT [facility] HGB 11.9(L) 12.0 - 15.3 g/dL 11/10/2022 11:40 AM EDT [facility] HCT 37.1 36.0 - 45.2 % 11/10/2022 11:40 AM EDT [facility] MCV 88.3 81.5 - 97.5 fL 11/10/2022 11:40 AM EDT [facility] MCH 28.3 27.0 - 34.0 pg 11/10/2022 11:40 AM EDT [facility] MCHC 32.1 32.0 - 36.0 g/dL 11/10/2022 11:40 AM EDT [facility] RDW 14.2 11.5 - 15.5 % 11/10/2022 11:40 AM EDT [facility] PLT 310 140 - 400 K/uL 11/10/2022 11:40 AM EDT [facility] MPV 8.6 6.6 - 11.1 fL 11/10/2022 11:40 AM EDT [facility] Blood Venous blood specimen / Unknown Venipuncture / Unknown 11/10/2022 11:33 AM EDT 11/10/2022 11:33 AM EDT Karthik Rodriguez MD LAB BLOOD ORDERABLE S [facility] [address] [place] [address] documented in this encounter Visit Diagnoses Diagnosis Inflammatory polyarthritis (HCC) Unspecified inflammatory polyarthropathy Sjogren's syndrome with keratoconjunctivitis sicca (HCC) documented in this encounter Care Teams Information Technology Program Manager Relationship Specialty Start Date End Date Elan Beauchamp, [address] [place] [address] PCP - General Family Medicine 08/05/12 documented as of this encounter
--- OUTSIDE RECORDS SUMMARY | 2023-01-28 05:18 | External Medical Summary | Summary of Care ---
Author Name Unknown Organization [facility] Address [address] [place] [place] [place] [address] Phone [phone] Care Team Providers Care Striper Spray Gun Name Role Phone Elan Beauchamp DO Primary Care Provider Encounter Details Date Type Department Care Team Description 11/23/2022 Specialty Pharmacy [facility], [address] [place] [address] Medication, [facility] Specialty Refill, [address] [place] [address] Allergies Active Allergy Reactions Severity Noted Date Comments Erythromycin 02/21/2003 Levofloxacin 01/20/2021 Lisinopril 01/20/2021 Other reaction(s): cough documented as of this encounter (statuses as of 11/23/2022) Medications Medication Sig Dispensed Refills Start Date [...] as of this encounter (statuses as of 11/23/2022) Active Problems Problem Noted Date Rotator cuff arthropathy of right should er 01/20/2021 Inflammatory polyarthritis 11/07/2017 Undifferentiated connective tissue disea se 06/16/2016 Long-term use of immunosuppressant medic ation 06/16/2016 Sjogren's syndrome with keratoconjunctiv itis sicca 06/16/2016 Depression with anxiety 05/13/2016 RSD lower limb 02/15/2014 Convulsions 11/12/2004 Osteoarthritis-Generalized documented as of this encounter (statuses as of 11/23/2022) Immunizations Name Administration Dates Next Due COVID-19 mRNA, LNP-s, No Pre serve, 2-Dose Series ([employer]) 11/15/2020,05/14/2020,04/21/2020 Seasonal Influenza, QUAD, wi th Preserv, [...] on file documented as of this encounter Progress Notes * Jie Hernandez CPhT - 11/23/2022 1:49 PM EDT Prescribed medication: Medication: Xeljanz Shipment date: 11/25 Delivery method: Specialty Mail Location Medication Delivered too? Prescription Address: [address] [place] [address] [place] [address] Jie Hernandez CPhT [facility] 11/23/2022,1:49 PM documented in this encounter Plan of Treatment Upcoming Encounters Date Type Specialty Care Team Description 05/25/2023 Office Visit Rheumatology Karthik Rodriguez MD [address] [place] [address] Health Maintenance Due Date Last Done Comments [...] Not on filedocumented as of this encounter Care Teams Striper Spray Gun Relationship Specialty Start Date End Date Elan Beauchamp DO [address] [place], [place] [address] PCP - General Family Medicine 08/05/12 documented as of this encounter
--- OUTSIDE RECORDS SUMMARY | 2023-01-28 05:18 | External Medical Summary | Summary of Care ---
Author Name Unknown Organization [facility] Address [address] [place] [address] Phone [phone] Care Team Providers Care Global Supply Chain Director Name Role Phone Elan Beauchamp DO Primary Care Provider Reason for Visit * Reason Comments Rheum Follow Up Recheck Sjogrens, Encounter Details Date Type Department Care Team Description 11/10/2022 Office Visit Rheumatology [facility] [address] [place] [address] Karthik Rodriguez MD [address] [place] [address] Inflammatory polyarthritis (HCC)*; Sjogren's syndrome with keratoconjunctivitis sicca (HCC) Allergies Active Allergy Reactions Severity Noted Date Comments Erythromycin 02/21/2003 Levofloxacin 01/20/2021 Lisinopril 01/20/2021 Other reaction(s): cough documented as of this encounter (statuses as of 11/10/2022) Medications Medication Sig Dispensed Refills Start Date End Date Status MULTIVITAL PO TABS 1 time daily 0 Acti ve HYDROCODONE-ACETAM INOPHEN 5-325 MG PO TABS 1 or 2 [...] mouth in the morning. 1 daily. 0 04/21/19 21 Active Restasis 0.05 % Ophthalmic Emulsion daily 0 05/11/19 21 Active Ibuprofen 600 MG Oral Tablet (Motrin) As needed 0 07/04/19 Active Gabapentin 300 MG Oral Capsule (Neurontin) Take 1 Capsule by mouth in the morning. 1 daily. 0 07/04/19 21 Active Pilocarpine HCl 5 MG Oral Tablet (Salagen) Take 1 Tab by mouth 3 times a day. 90 Tab 6 07/18/19 21 Active Emgality 120 MG/ML Subcutaneous Solution Auto-injector 0 12/25/19 21 Active OXcarbazepine 150 MG Oral Tablet (Trileptal) 0 01/03/20 21 Active Meloxicam 15 MG Oral Tablet Take 1 tablet by mouth once daily 90 Tablet 1 10/10/19 22 Active Baclofen 10 MG Oral Tablet (Lioresal) TAKE 1 TABLET BY MOUTH TWICE DAILY NEEDED FOR MUSCLE SPASM 0 09/01/19 22 Active lamoTRIgine 150 MG Oral Tablet (LaMICtal) Take 2 Tablets by mouth in the morning and 2 Tablets before bedtime. 0 08/04/19 22 Active Omeprazole 10 MG Oral Capsule Delayed Release (Prilosec) Take 1 Capsule by mouth in the morning. 0 09/11/19 22 Active Ondansetron 4 MG Oral Tablet Disintegrating (Zofran) DISSOLVE 1 TABLET IN MOUTH THREE TIMES DAILY NEEDED FOR NAUSEA AND VOMITING 0 09/11/19 22 Active Rizatriptan Benzoate 10 MG Oral Tablet TAKE 1 TABLET BY MOUTH AT ONSET OF HEADACHE, IF NO RELIEF, MAY REPEAT IN 2 HOURS NEEDED 0 08/21/19 22 Active Sertraline HCl 50 MG Oral Tablet (Zoloft) 0 09/27/19 22 Active Xeljanz XR 11 MG Oral Tablet Extended Release 24 Hour (Tofacitinib Citrate ER)Indications:Inf lammatory polyarthritis (HCC) Take one tablet by mouth daily. 30 Tablet 4 09/11/19 23 Active predniSONE 5 MG Oral Tablet (Deltasone) Take 4 tabs daily for 4 days, then 3 tabs daily for 4 days, 2 tabs daily for 4 days then 5mg daily for 4 days then stop 40 Tablet 2 11/11/19 23 Active Hydroxychloroquine Sulfate 200 MG Oral Tablet (Plaquenil) Take 2 Tablets by mouth at bedtime. 180 Tablet 4 11/11/19 23 Active PAXIL 40 MG PO TABS 1 time daily 0 023 Discontinued Hydroxychloroquine Sulfate 200 MG Oral Tablet (Plaquenil) Take 2 Tabs by mouth at bedtime. 180 Tab 4 04/17/19 21 023 Discontinued(Re fill) ZOLMitriptan 5 MG Oral Tablet As needed 0 07/04/19 21 023 Discontinued Ventolin HFA 108 (90 Base) MCG/ACT Inhalation Aerosol Solution 0 10/06/19 22 023 Discontinued Fluticasone Propionate 50 MCG/ACT Nasal Suspension (Flonase) USE 2 SPRAY(S) IN EACH NOSTRIL ONCE DAILY 0 09/11/19 22 023 Discontinued Nirmatrelvir&Riton avir 300/100 20 x 150 MG & 10 x 100MG Oral Tablet Therapy Pack (Paxlovid (300/100))Indicati ons:History of 2019 novel coronavirus disease (COVID-19),COVID-1 9 virus infection Take 2 pink tablets of Nirmatrelvir and 1 white tablet of Ritonavir two times a day by mouth. 30 Tablet 0 12/15/19 22 023 Discontinued predniSONE 5 MG Oral Tablet (Deltasone) Take 4 tabs daily for 4 days, then 3 tabs daily for 4 days, 2 tabs daily for 4 days then 5mg daily 66 Tablet 2 01/20/20 22 023 Discontinued(Re fill) Hydroxychloroquine Sulfate 200 MG Oral Tablet (Plaquenil) Take 2 Tablets by mouth at bedtime. 180 Tablet 4 11/11/19 23 023 Discontinued(Re fill) documented as of this encounter (statuses as [...] mRNA, LNP-s, No Pre serve, 2-Dose Series ([employer] [place]) 11/15/2020,05/14/2020,04/21/2020 Seasonal Influenza, QUAD, wi th Preserv, 6 mons & Above, 0.5 mL, IM 12/24/2020 Seasonal Influenza, Quadriva lent,with Preserve, 3 yr & Above, IM 10/28/2022,11/27/2021 documented as of this encounter Social History Tobacco Use Types Packs/Day Years Used Date Smoking Tobacco: Never Smokeless Tobacco: Never Tobacco Cessation:Counseling Given: Not Answered Alcohol Use Standard Drinks/Week Comments No 0 (1 standard drink = 0.6 oz pur e alcohol) Sex Assigned at Date Recorded Not on file Job Start Date Occupation Industry Not on file Not on file Not on file documented as of this encounter Last Filed Vital Signs Vital Sign Reading Time Taken Comments Blood Pressure - - Pulse - - Temperature 36.7 C (98 F) 11/10/2022 11:00 AM EDT Respiratory Rate - - Oxygen Saturation - - Inhaled Oxygen Concentration - - Weight 85.3 kg (188 lb) 11/10/2022 11:00 AM EDT Height - - Body Mass Index 30.34 09/09/2017 9:52 AM EDT documented in this encounter Progress Notes * Karthik Rodriguez MD - 11/10/2022 11:03 AM EDT Subjective: Patient seen today for further follow up evaluation of seronegative polyarthritis, Sjogren's. Sincethe last visit she reports that her daughter used to help her with medicines but no longer helping.She reports that her medication world is all messed up. She is taking xeljanz every day. She has memory issues. She also got hit the head by a stone from a fireplace that fell while it was being built. She was seen 2 days later at her neurologist. Did get imaging. She reports her arthritis is noting dong well. She gets swelling at her feet, wrists. Her pain is really bad., she states a 10. Her nerves are not doing well and this makes her pain worse. She has a lot of family stressors. She reports that she saw her family doctor's office you increase her Zoloft to twice a day which was helping but she ran out because the script was only for once a day. She is due for blood work. She continues deal with dry eyes and dry mouth. She is on Restasis for eyes. She gets frustrated very easily discussing health and cries. She states she is a lot stuff going on. Musculoskeletal ROS: . Abnormal: joint pain and joint swelling . Pain scale (0-10): 10 Other ROS: . Constitutional: normal . Head normal . Eyes: dryness . Ears, nose, throat, mouth: dry mouth . Cardiovascular: normal . Respiratory: normal . Gastrointestinal: normal . Genitourinary: normal . Skin: normal . Psychiatric: depressive symptoms All other ros reviewed and negative Social History: Social History Tobacco Use Smoking status: Never Smokeless tobacco: Never Substance Use Topics Alcohol use: No Vaping/E-Cigarette Use Vaping/E-Cigarette Substances Vaping/E-Cigarette Devices Current Outpatient Medications Medication Sig Dispense Refill MULTIVITAL PO TABS 1 time daily HYDROCODONE-ACETAMINOPHEN 5-325 MG PO TABS 1 or 2 as needed for migraines LAMICTAL 200 MG PO TABS 1 twice daily TOPIRAMATE 100 MG PO TABS 1 twice daily TRAZODONE HCL 50 MG PO TABS 1 daily lamoTRIgine 25 MG Oral Tablet Take 1 Tablet by mouth in the morning and 1 Tablet before bedtime. Losartan Potassium-HCTZ 100-12.5 MG per tablet Take 1 Tablet by mouth in the morning. naratriptan (AMERGE) 2.5 MG Tablet Take 1 Tablet by mouth as needed for Migraine. LORazepam 0.5 MG Oral Tablet Take 1 Tablet by mouth every 6 hours as needed. Hydroxychloroquine Sulfate 200 MG Oral Tablet (Plaquenil) Take 2 Tabs by mouth at bedtime. 180 Tab 4 Verapamil HCl ER 240 MG Oral Capsule Extended Release 24 Hour Take 1 Capsule by mouth in the morning. 1 daily. Ibuprofen 600 MG Oral Tablet (Motrin) As needed Gabapentin 300 MG Oral Capsule (Neurontin) Take 1 Capsule by mouth in the morning. 1 daily. Pilocarpine HCl 5 MG Oral Tablet (Salagen) Take 1 Tab by mouth 3 times a day. 90 Tab 6 Emgality 120 MG/ML Subcutaneous Solution Auto-injector OXcarbazepine 150 MG Oral Tablet (Trileptal) Meloxicam 15 MG Oral Tablet Take 1 tablet by mouth once daily 90 Tablet 1 Baclofen 10 MG Oral Tablet (Lioresal) TAKE 1 TABLET BY MOUTH TWICE DAILY NEEDED FOR MUSCLE SPASM lamoTRIgine 150 MG Oral Tablet (LaMICtal) Take 2 Tablets by mouth in the morning and 2 Tablets before bedtime. Omeprazole 10 MG Oral Capsule Delayed Release (Prilosec) Take 1 Capsule by mouth in the morning. Ondansetron 4 MG Oral Tablet Disintegrating (Zofran) DISSOLVE 1 TABLET IN MOUTH THREE TIMES DAILY NEEDED FOR NAUSEA AND VOMITING Rizatriptan Benzoate 10 MG Oral Tablet TAKE 1 TABLET BY MOUTH AT ONSET OF HEADACHE, IF NO RELIEF, MAY REPEAT IN 2 HOURS NEEDED Sertraline HCl 50 MG Oral Tablet (Zoloft) predniSONE 5 MG Oral Tablet (Deltasone) Take 4 tabs daily for 4 days, then 3 tabs daily for 4 days,2 tabs daily for 4 days then 5mg daily 66 Tablet 2 Xeljanz XR 11 MG Oral Tablet Extended Release 24 Hour (Tofacitinib Citrate ER) Take one tablet by mouth daily. 30 Tablet 4 Restasis 0.05 % Ophthalmic Emulsion daily No current facility-administered medications for this visit. Physical Exam: Temp 36.7 C (98 F) (Infrared ) | Wt 85.3 kg (188 lb) | BMI 30.34 kg/m | BSA 1.99 m General: alert, well nourished, well developed, crying, and mild distress HENT: normocephalic, external ears normal, no mucosal erythema, no mucosal edema, no oral ulcers, edentulous with dentures. Her tongue has appearance of chronic dryness but currently mouth is moist. Eye Exam: PERRL, EOMI, conjunctiva are pink and non-injected, sclera clear Neck: supple, no adenopathy, thyroid normal size, non-tender, without nodularity Lymph: no palpable lymphadenopathy Heart: regular rate & rhythm, no murmur, and no gallops Lungs: clear to auscultation , no rales, wheezes or rhonchi Abdomen: abdomen soft, non-tender, and normal bowel sounds Musculoskeletal Exam: Tenderness on exam to both knees, both ankles, both wrists, MCPs and PIPs both hands. No synovitis or dactylitis noted No knee effusions Assessment: M06.4 Inflammatory polyarthritis (HCC) (primary encounter diagnosis) M35.01 Sjogren's syndrome with keratoconjunctivitis sicca (HCC) Discussed several things with the patient. Will restart hydroxychloroquine along with her Xeljanz to get better control for arthritis. Unclear when Plaquenil was stopped. Will also do a prednisone taper. Will also send a message to her PCP about the increased dose of Zoloft. Plan: 1. Will send a message to her PCP 2. Blood work every 3 months ordered 3. Restart hydroxychloroquine, prednisone taper ordered 4. Continue with Xeljanz 5. Return to clinic in 6 months or sooner pending course Karthik Rdoriguez MD Department of Rheumatology documented in this encounter Nursing Notes * Neeraj Brown LPN - 11/10/2022 10:56 AM EDT Chief Complaint Patient presents with Rheum Follow Up Recheck Sjogrens, documented in this encounter Plan of Treatment Upcoming Encounters Date Type Specialty Care Team Description 05/25/2023 Office Visit Rheumatology Karthik Rodriguez MD [address] [facility], [place] [address] Pending Results Name Type Priority Associated Diagnoses Date /Time CBC WITH WBC DIFFERENTIAL Lab Routine Inflammatory polyarthritis (HCC) Sjogren's syndrome with keratoconjunctivitis sicca (HCC) 11/10/2022 11:33 AM EDT COMPREHENSIVE METABOLIC PANEL Lab Routine Inflammatory polyarthritis (HCC) Sjogren's syndrome with keratoconjunctivitis sicca (HCC) 11/10/2022 11:33 AM EDT Scheduled Orders Name Type Priority Associated Diagnoses Orde r Schedule CBC WITH WBC DIFFERENTIAL Lab Routine Inflammatory polyarthritis (HCC) Sjogren's syndrome with keratoconjunctivitis sicca (HCC) Every 3 Months for 999 Occurrences starting 11/10/2022 until 11/11/2023 COMPREHENSIVE METABOLIC PANEL Lab Routine Inflammatory polyarthritis (HCC) Sjogren's syndrome with keratoconjunctivitis sicca (HCC) Every 3 Months for 999 Occurrences starting 11/10/2022 until 11/11/2023 Health Maintenance Due Date Last Done Comments [...] Not on filedocumented as of this encounter Visit Diagnoses Diagnosis Inflammatory polyarthritis (HCC)- Primary Unspecified inflammatory polyarthropathy Sjogren's syndrome with keratoconjunctivitis sicca (HCC) documented in this encounter Care Teams Global Supply Chain Director Relationship Specialty Start Date End Date Elan Beauchamp DO [address] [address] PCP - General Family Medicine 08/05/12 documented as of this encounter"
--- OUTSIDE RECORDS SUMMARY | 2023-01-28 05:18 | External Medical Summary ---
Author Name Unknown Address Unknown Organization [facility] [address] [place] [address] Laboratory Report Ordering Provider Test Date Status BASILIO SABILLON 11/10/2022 11:33:20 Final Observation Date Value Abnormality Reference (Units ) Status SYNC LEUKOCYTES IN BLOOD BY AUTOMATED COUNT 11/10/2022 11:33:20 5.05 4.00-10.80 (K/uL) Final Segs 11/10/2022 11:33:20 50.5 40.0-75.0 (%) Final Lymphs % 11/10/2022 11:33:20 37.2 18.0-42.0 (%) Final Monos 11/10/2022 11:33:20 10.1 1.0-11.0 (%) Final Eosinophils 11/10/2022 11:33:20 2.0 0.0-6.0 (%) Final Basos 11/10/2022 11:33:20 0.2 0.0-2.0 (%) Final Absolute Segs 11/10/2022 11:33:20 2.55 1.80-7.70 (K/uL) Final Lymphs, absolute 11/10/2022 11:33:20 1.88 1.00-4.80 (K/ul) Final Monos, Abs 11/10/2022 11:33:20 0.51 0.00-1.10 (K/uL) Final Eos, Abs 11/10/2022 11:33:20 0.10 0.00-0.70 (K/uL) Final Basos, Abs 11/10/2022 11:33:20 0.01 0.00-0.20 (K/uL) Final Performing Location [facility] [place] [address]
--- OUTSIDE RECORDS SUMMARY | 2023-01-28 05:19 | External Medical Summary | Summary of Care ---
Author Name Unknown Organization [facility] Address [address] [place] [address] Phone [phone] Care Team Providers Care Screening Tech Name Role Phone Elan Beauchamp DO Primary Care Provider Encounter Details Date Type Department Care Team Description 10/27/2022 Specialty Pharmacy [facility], [address] [place] [address] Medication, [facility] Specialty Refill, [address] [place] [address] Allergies Active Allergy Reactions Severity Noted Date Comments Erythromycin 02/21/2003 Levofloxacin 01/20/2021 Lisinopril 01/20/2021 Other reaction(s): cough documented as of this encounter (statuses as of 10/27/2022) Medications Medication Sig Dispensed Refills Start Date End Date Status MULTIVITAL PO TABS 1 time daily 0 Acti ve PAXIL 40 MG PO TABS 1 time daily 0 Act maria g HYDROCODONE-ACETAMIN OPHEN 5-325 MG PO TABS 1 or 2 as needed for migraines 0 Active LAMICTAL 200 MG PO TABS 1 twice daily 0 Active TOPIRAMATE 100 MG PO TABS 1 twice daily 0 Active TRAZODONE HCL 50 MG PO TABS 1 daily 0 Active lamoTRIgine (LAMICTAL) 25 MG Tablet Take 25 mg by mouth 2 times a day. 0 Active Losartan Potassium-HCTZ 100-12.5 MG per tablet Take 1 Tab by mouth daily. 0 Active naratriptan (AMERGE) 2.5 MG Tablet Take 2.5 mg by mouth as needed for Migraine. 0 Active LORAzepam (ATIVAN) 0.5 MG Tablet Take 0.5 mg by mouth every 6 hours as needed. 0 Active Hydroxychloroquine Sulfate 200 MG Oral Tablet (Plaquenil) Take 2 Tabs by mouth at bedtime. 180 Tab 4 04/16/2020 Active Verapamil HCl ER 240 MG Oral Capsule Extended Release 24 Hour Take 240 mg by mouth daily. 1 daily 0 04/20/2020 Active Restasis 0.05 % Ophthalmic Emulsion daily 0 05/10/2020 Activ e Ibuprofen 600 MG Oral Tablet (Motrin) As needed 0 07/03/2020 Acti ve Gabapentin 300 MG Oral Capsule (Neurontin) Take by mouth 300 mg daily . 1 daily 0 07/03/2020 Active ZOLMitriptan 5 MG Oral Tablet As needed 0 07/03/2020 Active Pilocarpine HCl 5 MG Oral Tablet (Salagen) Take 1 Tab by mouth 3 times a day. 90 Tab 6 07/17/2020 Active Emgality 120 MG/ML Subcutaneous Solution Auto-injector 0 12/24/2020 Active OXcarbazepine 150 MG Oral Tablet (Trileptal) 0 01/02/2021 Active Meloxicam 15 MG Oral Tablet Take 1 tablet by mouth once daily 90 Tablet 1 10/09/2021 Active Ventolin HFA 108 (90 Base) MCG/ACT Inhalation Aerosol Solution 0 10/05/2021 Active Baclofen 10 MG Oral Tablet (Lioresal) TAKE 1 TABLET BY MOUTH TWICE DAILY NEEDED FOR MUSCLE SPASM 0 08/31/2021 Active Fluticasone Propionate 50 MCG/ACT Nasal Suspension (Flonase) USE 2 SPRAY(S) IN EACH NOSTRIL ONCE DAILY 0 09/10/2021 Active lamoTRIgine 150 MG Oral Tablet (LaMICtal) Take by mouth 300 mg in the morning AND 300 mg before bedtime. 0 08/03/2021 Active Omeprazole 10 MG Oral Capsule Delayed Release (Prilosec) Take by mouth 10 mg in the morning. 0 09/10/2021 Active Ondansetron [...] Oral Tablet (Zoloft) 0 09/26/2021 Acti ve Nirmatrelvir&Ritonav ir 300/100 20 x 150 MG & 10 x 100MG Oral Tablet Therapy Pack (Paxlovid (300/100))Indication s:History of 2019 novel coronavirus disease (COVID-19),COVID-19 virus infection Take 2 pink tablets of Nirmatrelvir and 1 white tablet of Ritonavir two times a day by mouth. 30 Tablet 0 12/14/2021 Active predniSONE 5 MG Oral Tablet (Deltasone) Take 4 tabs daily for 4 days, then 3 tabs daily for 4 days, 2 tabs daily for 4 days then 5mg daily 66 Tablet 2 01/19/2022 Active Xeljanz XR 11 MG Oral Tablet Extended Release 24 Hour (Tofacitinib Citrate ER)Indications:Infla mmatory polyarthritis (HCC) Take one tablet by mouth daily. 30 Tablet 4 09/10/2022 Active documented as of this encounter (statuses as of 10/27/2022) Active Problems Problem Noted Date Rotator cuff arthropathy of right should er 01/20/2021 Inflammatory polyarthritis 11/07/2017 Undifferentiated connective tissue disea se 06/16/2016 Long-term use of immunosuppressant medic ation 06/16/2016 Sjogren's syndrome with keratoconjunctiv itis sicca 06/16/2016 Depression with anxiety 05/13/2016 RSD lower limb 02/15/2014 Convulsions 11/12/2004 Osteoarthritis-Generalized documented as of this encounter (statuses as of 10/27/2022) Immunizations Name Administration Dates Next Due COVID-19 mRNA, LNP-s, No Pre serve, 2-Dose Series ([employer]) 11/15/2020,05/14/2020,04/21/2020 Seasonal Influenza, QUAD, wi th Preserv, 6 mons & Above, 0.5 mL, IM 12/24/2020 documented as of this encounter Social History [...] Progress Notes * Jie Hernandez CPhT - 10/27/2022 8:09 AM EDT Prescribed medication: Medication: Xeljanz Shipment date: 11/01 Delivery method: Specialty Mail Location Medication Delivered too? Prescription Address: [address] [place], [place] [address] [address] Jie Hernandez CPhT [facility] 10/27/2022,8:09 AM documented in this encounter Plan of Treatment Health Maintenance Due Date Last Done Comments [...] 10/11/2012 Sigmoidoscopy 10/11/2012 COVID-19 Vaccine (4 - Pfizer risk series) 01/10/2021 11/15/2020, 05/14/2020, 04/21/2020 Influenza Vaccine (FLU shot) (#1) 2022 12/24/2020 Lipid Panel 06/15/2027 06/14/2022, 10/01/2021, 12/22/2020 Hepatitis C Screening Completed 04/16/2020 , 07/11/2017 GARDASIL-HPV IMMUNIZATION SERIES Aged Out No longer eligible b ased on patient's age to complete this topic MENINGOCOCCAL (MENACTRA/MENVEO) Aged Out No longer eligible b ased on patient's age to complete this topic documented as of this encounter Medical Devices Not on filedocumented as of this encounter Care Teams Screening Tech Relationship Specialty Start Date End Date Elan Beauchamp DO [address] [place] [address] PCP - General Family Medicine 08/05/12 documented as of this encounter
--- OUTSIDE RECORDS SUMMARY | 2023-01-28 05:19 | External Medical Summary | Continuity of Care Document ---
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 Name Role Phone Elan Beauchamp Primary Care Physician [phone] Encounter [facility] [phone] Date(s): 10/28/22 - 10/28/22 [facility] [address] [address] [place] [phone] Encounter Diagnosis Chronic migraine without aura(Discharge Diagnosis) - 10/28/22 Concussion(Discharge Diagnosis) - 10/28/22 Discharge Disposition: Home or Self Care Attending Physician: MD Violeta, Leah Jorgensen Allergies, Adverse Reactions, Alerts Substance Reaction Severity Status erythromycin Active lisinopril cough Active Levaquin Active Immunizations Given and Recorded Vaccine Date Status Refusal Reason influenza virus vaccine, inactivated 10/28/22 Give n influenza virus vaccine, inactivated 11/27/21 Give n influenza virus vaccine, inactivated 12/24/20 Give n influenza virus vaccine, inactivated 11/22/18 Give n influenza virus vaccine, inactivated 11/19/16 Give n influenza virus vaccine, inactivated 11/24/15 Give n SARS-CoV-2 (COVID-19) mRNA BNT-162b2 vax 1 11/15/20 Recorded tetanus/diphtheria/pertuss, acel (Tdap) 11/19/16 G iven tetanus toxoids-diphtheria, Td (Adult) 06/13/02 Re corded 1Result Comment: 2021-09-22: Historical information-source unspecified Medications acetaminophen-hydrocodone 325 mg-7.5 mg oral tablet Start: 10/04/22 13:41:00 EDT, 1 tab, PO, q6h, Disp# 40 tab, Refills: 0, Note to Pharmacy: ongoing tx; PMDP queried, PRN: as needed for pain, Pharmacy: [id number] Start Date: 10/04/22 Status: Ordered Albuterol (Eqv-Ventolin HFA) 90 mcg/inh inhalation aerosol Start: 06/09/22 8:45:00 EDT, 2 puff, inhaled, q6h, Disp# 8 g, Refills: 1, Pharmacy: [facility] Start Date: 06/09/22 Status: Ordered baclofen 10 mg oral tablet Start: 08/13/22 8:17:00 EDT, 1 tab, PO, bid, Disp# 45 tab, Refills: 1, PRN, PRN: back pain, Pharmacy: [facility] Start Date: 08/13/22 Status: Ordered doxycycline hyclate 100 mg oral capsule Start: 06/09/22 8:07:00 EDT Start Date: 06/09/22 Status: Ordered famotidine 20 mg oral tablet Start: 04/07/22 13:33:00 EST, 1 tab, PO, bid, Disp# 180 tab, Refills: 1, Pharmacy: [facility] [id number] Start Date: 04/07/22 Stop Date: 10/04/22 Status: Ordered gabapentin 300 mg oral capsule TAKE 1 CAPSULE BY MOUTH ONCE DAILY Start Date: 07/30/20 Status: Ordered hydroCHLOROthiazide-losartan 12.5 mg-50 mg oral tablet Start: 08/17/21 8:42:00 EDT, See Instructions, Disp# 90 tab, Refills: 3, Take 1 tablet by mouth once daily, Pharmacy: [facility] Start Date: 08/17/21 Status: Ordered hydroxychloroquine 200 mg oral tablet Start: 08/24/18 8:22:00 EDT Start Date: 08/24/18 Status: Ordered ibuprofen 600 mg oral tablet Start: 07/09/22 13:20:00 EDT, See Instructions, Disp# 120 tab, Refills: 3, TAKE 1 TABLET BY MOUTH 4TIMES DAILY NEEDED FOR PAIN, Pharmacy: [facility] Start Date: 07/09/22 Status: Ordered lamoTRIgine 150 mg oral tablet Start: 06/09/22 7:46:00 EDT Start Date: 06/09/22 Status: Ordered lamoTRIgine 200 mg oral tablet Start: 08/24/18 8:21:00 EDT Start Date: 08/24/18 Status: Ordered lamoTRIgine 25 mg oral tablet, disintegrating Start: 08/24/18 8:22:00 EDT Start Date: 08/24/18 Status: Ordered LORazepam 0.5 mg oral tablet Start: 10/13/22 11:38:00 EDT, See Instructions, Disp# 30 tab, Refills: 3, TAKE 1 TABLET BY MOUTH ONCE DAILY NEEDED FOR ANXIETY, Pharmacy: [facility] Start Date: 10/13/22 Status: Ordered meloxicam 15 mg oral tablet Start: 06/16/22 9:40:00 EDT, 1 tab, PO, Daily, Disp# 30 tab, Refills: 3, Pharmacy: [facility] Start Date: 06/16/22 Status: Ordered Multiple Vitamins oral tablet Start: 12/11/09 11:00:00, 1 tab, PO, Daily Start Date: 12/11/09 Status: Ordered naratriptan 2.5 mg oral tablet Start: 10/28/22 9:19:00 EDT, 1 tab, PO, ONCE, Disp# 9 tab, Refills: 0, PRN: as needed for headache,Pharmacy: [id number] Start Date: 10/28/22 Status: Ordered omeprazole 20 mg oral delayed release capsule Start: 09/27/22 15:21:00 EDT, See Instructions, Disp# 90 cap, Refills: 0, Take 1 capsule by mouth once daily, Pharmacy: [facility] Start Date: 09/27/22 Status: Ordered predniSONE 10 mg oral tablet Start: 08/13/22 8:16:00 EDT, 1 tab, PO, Daily, Disp# 30 tab, Refills: 1, Pharmacy: [id number] Start Date: 08/13/22 Stop Date: 10/12/22 Status: Ordered Restasis 0.05% ophthalmic emulsion INSTILL 1 DROP INTO AFFECTED EYE(S) EVERY 12 HOURS Start Date: 07/30/20 Status: Ordered sertraline 100 mg oral tablet Start: 02/24/22 16:13:00 EST, 1 tab, PO, Daily, Disp# 90 tab, Refills: 0, Pharmacy: [facility] Start Date: 02/24/22 Stop Date: 05/25/22 Status: Ordered topiramate 50 mg oral tablet Start: 10/28/22 9:18:00 EDT, 1 tab, PO, bid, Disp# 60 tab, Pharmacy: [facility] Start Date: 10/28/22 Status: Ordered traZODone 50 mg oral tablet Start: 07/11/19 9:41:00 EDT, 1 tab, PO, qhs, Disp# 90 tab, Refills: 3, Pharmacy: [facility] Start Date: 07/11/19 Stop Date: 07/05/20 Status: Ordered Vitamin B12 Start: 02/24/22 15:22:00 EST, daily Start Date: 02/24/22 Status: Ordered Xeljanz XR 11 mg oral tablet, extended release Start: 07/30/20 9:37:00 EDT Start Date: 07/30/20 Status: Ordered Zofran ODT 4 mg oral tablet, disintegrating Start: 06/09/22 8:48:00 EDT, 1 tab, PO, q12h, Disp# 20 tab, PRN: as needed for nausea/vomiting, Pharmacy: [facility] Start Date: 06/09/22 Status: Ordered Mental Status 10/28/22 Barriers to Learning one year None evide nt Mandatory Health Literacy Documentation Yes Health Literacy Communication Barriers N ever Primary Language Argentine Problem List Condition Confirmation Course Effective Dates Status Health St atus Informant Anemia Confirmed Active Concussion Confirmed Active COVID-19 Confirmed Active Depression Confirmed Active Dysphagia Confirmed Active Epilepsy Confirmed Active Effusion of left foot Confirmed Active Left foot pain Confirmed Active Hypertension Confirmed Active Insomnia Confirmed Active Schatzki's ring Confirmed Active Persistent cough Confirmed Active Sympathetic reflex dystrophy, lower limb 1 Confirmed Active Sjogren's disease Confirmed Active Weight disorder Confirmed Active 1Left foot Diagnosis Diagnosis Type Effective Dates Health Status Clinical Service Informant Chronic migraine without aura Discharge Diagnosis 10/28/22 Concussion Discharge Diagnosis 10/28/22 Procedures Procedure Date Related Diagnosis Body Site Status Chest X-ray 1 06/03/22 Completed EGD - Esophagogastroduodenoscopy 2 05/19/22 Completed Colonoscopy 3 03/30/22 Completed Esophagogastroduodenoscopy 4 03/30/22 Completed Plain X-ray of lumbar spine 5 01/14/22 Completed Chest X-ray 6 09/22/[address] of brain 7 08/27/21 Completed Mammogram 8, 9 03/20/21 Completed Esophagogastroduodenoscopy 10 01/27/21 Completed Upper GI endoscopy 11 10/25/19 Com pleted Tibia X-ray 12 08/01/18 Completed X-ray of right ankle 13 08/01/18 C ompleted X-ray of right foot 14 08/01/18 Co mpleted EEG 15 06/19/18 Completed Upper GI endoscopy 16 05/16/18 Com pleted PAP test date 17 04/24/18 Complete d Mammogram 18 04/21/18 Completed X-ray of left ankle 19 10/13/16 Co mpleted Upper GI endoscopy 20 05/12/16 Com pleted Endometrial ablation 07/02/15 Comp leted Tubal Ligation 02/07/97 Completed Cholecystectomy Completed 1Impression: No active chest disease in the chest. 2Moderate Schatzki ring, dilated. Normal stomach and examined duodenum. No specimens collected. 3COLO to cecum normal. repeat 10 years. 4EGD ring biopsied to break up, mid esoph nl bx, 5Impression: Degenerative changes as above without aute fracture or sublaxation. 6No acute cardiopulmonary findings. 7Impression: 1. No acute intracranial abnormality. 2. 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 8Mammogram negatve 9IMPRESSION: No pneumothorax. Acute minimally displaced left eighth rib fracture. Acute nondisplacedleft ninth rib fracture, better depicted on CT. 10EGD EG ring and esophagitis bx, 2 cm hh, mid esoph nl bx, antral erosions bx, duod bulb erythema 11Impression: - Z line is regular, 37 cm from the incisors - Moderate Schatzki ring. Dilated. - Normal stomach - Normal examined duodenum. - No specimens collected. 12No acute fracture of the right tibia or fibula. 131. No acute fracture or dislocation within the right ankle. 2. Soft tissue swelling. 3. Marked plantar calcaneal spurring. 14No fractures identified. 15Is a generally unremarkable or normal appearing EEG. However, there is a minimal degree of intermittent left frontal delta activity potentially suggestive of an underlying structural abnormality. 16Zline was regular and was found 38 cm fro the incisors. One benign-appearing intrinsic moderate stenosis was found 38 cm from the incsiors. The stenosis was traversed. The ring fractured with the Goldprobe. A guidewire was placed and the scope was withdrawn. Dilitation was performed with a savaru dilator with no resistance at 60 Fr. One nonn bleeding superficial gastric ulcer with no stigmata of bleeding was found in the gastric antrum. The lesion was 5 mm in largest dimension. A few non-bleeding localized erosions were found in the gastric antrum. There were no stigmata of recent bleeding. 17Negative for intraepithelial lesion or malignancy 18ACR BI RADS CAT 1 : NEGATIVE There is no mammographic evidence of malignancy . A1 year screen is recommended 19No fractures 20Benign-apperaring esophageal stenosis. Dilated. Normal stomach. Normal examined duodenum. No specimens collected. Vital Signs Most recent to oldest [Reference Range]: 1 Patient Weight 85.2 kg (10/28/22 9:05 AM) Temperature [36.5-37.9 DegC] 36.8 DegC (10/28/22 9:05 AM) Respiratory Rate 17 br/min (10/28/22 9:05 AM) Blood Pressure 138/76mmHg (10/28/22 9:05 AM) Cuff Pulse Pressure 62 mmHg (10/28/22 9:05 AM) BP Location # 1 Left Arm (10/28/22 9:05 AM) Social History Social History Type Response Smoking Status Never smoked cigaret khloe Sex Female Patient Care team information Care Team Personnel Name: TIFFANY Xavier Kimberly A Position: Physician [place] - Family Med Member Role: Lifetime Relationship Address: Address: [address] [address] [place] Name: DO Beauchamp [place] J Position: Physician - Family Med Member Role: Lifetime Relationship Address: Address: [address] [address] [place] Care Team Related Persons Name: MANDEEP PEREZ Address: home [address] [place] [address] ANGELES PERRY [phone]
--- OUTSIDE RECORDS SUMMARY | 2023-01-28 05:19 | External Medical Summary | Continuity of Care Document ---
Author Name Unknown Organization [address] [place] [phone] Care Team Providers Care Senior Network Security Architect Name Role Phone Elan Beauchamp Primary Care Physician [phone] [facility] [id number] Date(s): 10/14/22 - 10/14/22 [facility] 0 [facility] 207 [facility] 1850 [facility], [address] [address] [place] [phone] Encounter Diagnosis Concussion with brief LOC(Discharge Diagnosis) - 10/14/22 Discharge Disposition: Home or Self Care Attending Physician: MD Mcdaniel Amy L Allergies, Adverse Reactions, Alerts Substance Reaction Severity Status erythromycin Active lisinopril cough Active Levaquin Active Assessment and Plan Extracted from: Title:Office Visit Note Author:DO Esquivel Nicho las Date:10/14/22 1.Concussion with brief LO C Concussion with LOC: Symptoms and physical exam consistent with concussion. No red flag symptoms at this time to suggest need for immediate imaging. Will closely monitor symptoms over the next few weeks. - Okay to use ibuprofen and Tylenol prn for ESPINOZA. - Avoid any stimulus or activities that worsen symptoms: work, TV, cell phone, computer, etc. - Avoid any strenuous physical activity for the next week. - Recommend starting Fish Oil 2000mg BID as this has been shown to decrease symptom duration and improve time to full activity. - Avoid all alcohol while acutely symptomatic as this can have fatal consequences combined with acute concussion. - Will f/u in 1 week for reassessment Immunizations Given and Recorded Vaccine Date Status Refusal Reason influenza virus vaccine, inactivated 11/27/21 Give n [...] queried, PRN: as needed for pain, Pharmacy: [facility] Start Date: 10/04/22 Status: Ordered Albuterol (Eqv-Ventolin HFA) 90 mcg/inh inhalation aerosol Start: 06/09/22 8:45:00 EDT, 2 puff, inhaled, q6h, Disp# 8 g, Refills: 1, Pharmacy: [facility] Start Date: 06/09/22 Status: Ordered baclofen 10 mg oral tablet Start: 08/13/22 8:17:00 EDT, 1 tab, PO, bid, Disp# 45 tab, Refills: 1, PRN, PRN: back pain, Pharmacy: [facility] Start Date: 08/13/22 Status: Ordered doxycycline hyclate 100 mg oral capsule Start: 06/09/22 8:07:00 EDT Start Date: 06/09/22 Status: Ordered famotidine 20 mg oral tablet Start: 04/07/22 13:33:00 EST, 1 tab, PO, bid, Disp# 180 tab, Refills: 1, Pharmacy: [id number] Start Date: 04/07/22 Stop Date: 10/04/22 Status: Ordered gabapentin 300 mg oral capsule TAKE 1 CAPSULE BY MOUTH ONCE DAILY Start Date: 07/30/20 Status: Ordered hydroCHLOROthiazide-losartan 12.5 mg-50 mg oral tablet Start: 08/17/21 8:42:00 EDT, See Instructions, Disp# 90 tab, Refills: 3, Take 1 tablet by mouth once daily, Pharmacy: [facility] 223 Start Date: 08/17/21 Status: Ordered hydroxychloroquine 200 mg oral tablet Start: 08/24/18 8:22:00 EDT Start Date: 08/24/18 Status: Ordered ibuprofen 600 mg oral tablet Start: 07/09/22 13:20:00 EDT, See Instructions, Disp# 120 tab, Refills: 3, TAKE 1 TABLET BY MOUTH 4TIMES DAILY NEEDED FOR PAIN, Pharmacy: [facility] 2229 Start Date: 07/09/22 Status: Ordered [...] MOUTH ONCE DAILY NEEDED FOR ANXIETY, Pharmacy: [facility] 2229 Start Date: 10/13/22 Status: Ordered meloxicam 15 mg oral tablet Start: 06/16/22 9:40:00 EDT, 1 tab, PO, Daily, Disp# 30 tab, Refills: 3, Pharmacy: [facility] Start Date: 06/16/22 Status: Ordered Multiple Vitamins oral tablet Start: 12/11/09 11:00:00, 1 tab, PO, Daily Start Date: 12/11/09 Status: Ordered naratriptan 2.5 mg oral tablet Start: 04/23/16 11:15:00, 1 tab, PO, ONCE, Disp# 9 tab, Refills: 0, PRN: as needed for headache, Pharmacy: [facility] Start Date: 04/23/16 Status: Ordered omeprazole 20 mg oral delayed release capsule Start: 09/27/22 15:21:00 EDT, See Instructions, Disp# 90 cap, Refills: 0, Take 1 capsule by mouth once daily, Pharmacy: [facility] 2229 Start Date: 09/27/22 Status: Ordered predniSONE 10 mg oral tablet Start: 08/13/22 8:16:00 EDT, 1 tab, PO, Daily, Disp# 30 tab, Refills: 1, Pharmacy: [id number] Start Date: 08/13/22 Stop Date: 10/12/22 Status: Ordered Restasis 0.05% ophthalmic emulsion INSTILL 1 DROP INTO AFFECTED EYE(S) EVERY 12 HOURS Start Date: 07/30/20 Status: Ordered sertraline 100 mg oral tablet Start: 02/24/22 16:13:00 EST, 1 tab, PO, Daily, Disp# 90 tab, Refills: 0, Pharmacy: [facility] Start Date: 02/24/22 Stop Date: 05/25/22 Status: Ordered Topamax 100 mg oral tablet Start: 03/30/17 13:57:00, 1 tab, PO, bid Start Date: 03/30/17 Status: Ordered traZODone 50 mg oral tablet Start: 07/11/19 9:41:00 EDT, 1 tab, PO, qhs, Disp# 90 tab, Refills: 3, Pharmacy: [facility] Start Date: 07/11/19 Stop [...] tab, PRN: as needed for nausea/vomiting, Pharmacy: [facility] Start Date: 06/09/22 Status: Ordered Mental Status 10/14/22 Barriers to Learning one year None evide nt Mandatory Health Literacy Documentation Yes Health Literacy Communication Barriers N ever Primary Language Pakistani Problem List Condition Confirmation Course Effective Dates Status Health St atus Informant Anemia Confirmed Active COVID-19 Confirmed Active Depression Confirmed [...] Effective Dates Health Status Clinical Service Informant Concussion with brief LOC Discharge Diagnosis 10/14/22 Procedures Procedure Date Related Diagnosis Body Site [...] was withdrawn. Dilitation was performed with a ChampionVillageu dilator with no resistance at 60 Fr. [...] Most recent to oldest [Reference Range]: 1 Height 167.5 cm (10/14/22 11:01 AM) Patient Weight 84.7 kg (10/14/22 11:01 AM) Body Mass Index 30.19 kg/m2 (10/14/22 11:01 AM) Heart Rate 77 bpm (10/14/22 11: AM) Respiratory Rate 12 br/min (10/14/22 11: AM) Blood Pressure 148/96mmHg (10/14/22 11:01 AM) Cuff Pulse Pressure 52 mmHg (10/14/22 11:01 AM) Social History Social History Type Response Smoking Status Never smoked cigaret khloe Sex Female FCM Outpt Note * MD Mcdaniel Amy L: MODIFY MD Mcdaniel Amy L: MODIFY Event Display: FCM Outpt Note Authored Date: Chief Complaint stone fell on head 5-7 days ago had LOC and C/O headake since the injury did not seak medicatl attention after the injury History of Present Illness 57 yo female here after a 5lb rock fell on her head 5 days ago. Continues to have swelling and small laceration. No signs of infection. Feels pressure in her head, constant headache. +LOC brief, +ESPINOZA since the injury Denies vision changes, dizziness, hypersomnolence No seizure activity Physical Exam Vitals & Measurements HR:77(Monitored) RR:12 BP:148/96 SpO2:97% HT:167.5cm WT:84.7kg WT:84.700kg(Dosing) BMI:30.19 PHQ2 Data(Data Documented on:10/14/2022 11:01) Emotional health assessment NEGATIVE GENERAL: emotional, frustrated. HEENT: head with large area of swelling, laceration scabbed over. sclera non- icteric. Pupils are equal, round and reactive to light. Extraocular movements are intact; no nystagmus or saccades noted. Good smooth pursuit. NEURO:CN II-XII intact SKIN: Intact Warm, dry. [place]. No rash. PSYCH: emotionally labile Assessment/Plan 1.Concussion with brief LOC Concussion with LOC: Symptoms and physical exam consistent with concussion. No red flag symptoms at this time to suggestneed for immediate imaging. Will closely monitor symptoms over the next few weeks. - Okay to use ibuprofen and Tylenol prn for ESPINOZA. - Avoid any stimulus or activities that worsen symptoms: work, TV, cell phone, computer, etc. - Avoid any strenuous physical activity for the next week. - Recommend starting Fish Oil 2000mg BID as this has been shown to decrease symptom duration and improve time to full activity. - Avoid all alcohol while acutely symptomatic as this can have fatal consequences combined with acute concussion. - Will f/u in 1 week for reassessment Attestation Attestation -I discussed and evaluated this patient with Dr. Esquivel. We discussed concussion & variable course of recovery in different patients. Reviewed concept of "brain rest". The assessment and plan was developed with him and carried out at my direction. I have read and agree with his note. Problem List/Past Medical History Ongoing Anemia ANXIETY Chronic migraine without aura COVID-19 Depression Dysphagia Effusion of left foot Epilepsy GERD Hypertension Insomnia Left foot pain Persistent cough Schatzki's ring SEIZURE DISORDER Sjogren's disease Sympathetic reflex dystrophy, lower limb Weight disorder Procedure/Surgical History Chest X-ray (06/03/2022)EGD - Esophagogastroduodenoscopy (05/19/2022)Colonoscopy (03/30/2022)Esophagogastroduodenoscopy (03/30/2022)Plain X-ray of lumbar spine (01/14/2022)Chest X-ray (09/22/2021)CT of brain (08/27/2021)Mammogram (03/20/2021)Esophagogastroduodenoscopy (01/27/2021)Upper GI endoscopy (10/25/2019)Tibia X-ray (08/01/2018)X-ray of right ankle (08/01/2018)X- ray of right foot (08/01/2018)EEG (06/19/2018)Upper GI endoscopy (05/16/2018)PAPtest date (04/24/2018)Mammogram (04/21/2018)X-ray of left ankle (10/13/2016)Upper GI endoscopy (05/12/2016)Endometrial ablation (07/02/2015)Tubal Ligation (02/07/1997)Cholecystectomy Medications acetaminophen-hydrocodone(acetaminophen-hydrocodone 325 mg-7.5 mg oral tablet), 1 tab, PO, q6h, PRN albuterol(Albuterol (Eqv-Ventolin HFA) 90 mcg/inh inhalation aerosol), 2 puff, inhaled, q6h, 1 refills baclofen(baclofen 10 mg oral tablet), 10 mg= 1 tab, PO, bid, PRN, 1 refills cyanocobalamin(Vitamin B12) cycloSPORINE ophthalmic(Restasis 0.05% ophthalmic emulsion) doxycycline(doxycycline hyclate 100 mg oral capsule) famotidine(famotidine 20 mg oral tablet), 20 mg= 1 tab, PO, bid, 1 refills gabapentin(gabapentin 300 mg oral capsule) hydroCHLOROthiazide-losartan(hydroCHLOROthiazide-losartan 12.5 mg-50 mg oral tablet), See Instructions hydroxychloroquine(hydroxychloroquine 200 mg oral tablet) ibuprofen(ibuprofen 600 mg oral tablet), See Instructions lamoTRIgine(lamoTRIgine 200 mg oral tablet) lamoTRIgine(lamoTRIgine 25 mg oral tablet, disintegrating) lamoTRIgine(lamoTRIgine 150 mg oral tablet) LORazepam(LORazepam 0.5 mg oral tablet), See Instructions, 3 refills meloxicam(meloxicam 15 mg oral tablet), 15 mg= 1 tab, PO, Daily, 3 refills multivitamin(Multiple Vitamins oral tablet), 1 tab, PO, Daily naratriptan(naratriptan 2.5 mg oral tablet), 2.5 mg= 1 tab, PO, ONCE, PRN omeprazole(omeprazole 20 mg oral delayed release capsule), See Instructions ondansetron(Zofran ODT 4 mg oral tablet, disintegrating), 4 mg= 1 tab, PO, q12h, PRN predniSONE(predniSONE 10 mg oral tablet), 10 mg= 1 tab, PO, Daily, 1 refills sertraline(sertraline 100 mg oral tablet), 100 mg= 1 tab, PO, Daily tofacitinib(Xeljanz XR 11 mg oral tablet, extended release) topiramate(Topamax 100 mg oral tablet), 100 mg= 1 tab, PO, bid traZODone(traZODone 50 mg oral tablet), 50 mg= 1 tab, PO, qhs, 3 refills Allergies Levaquin erythromycin lisinoprilcough Social History Smoking Status Never smoked cigarettes Substance Abuse - Denies Substance Abuse Tobacco - Denies Tobacco Use Use:Never smoker Family History Diabetes: Father. Heart Failure: Father. High Blood Pressure: Father. Health Status Family Member(s) Mother: History is negative Immunizations Vaccine Date Status influenza virus vaccine, inactivated 11/27/2021 Given influenza virus vaccine, inactivated 12/24/2020 Given SARS-CoV-2 (COVID-19) mRNA BNT-162b2 vax 11/15/2020 Recorded Comments : 2021-09-22: Historical information-source unspecified influenza virus vaccine, inactivated 11/22/2018 Given influenza virus vaccine, inactivated 11/19/2016 Given tetanus/diphtheria/pertuss, acel (Tdap) 11/19/2016 Given influenza virus vaccine, inactivated 11/24/2015 Given tetanus toxoids-diphtheria, Td (Adult) 06/13/2002 Recorded Recommendations Health Maintenance Pending(in the next year) OverDue Cervical Cancer Screening due04/23/21and every 3year Adult Influenza Vaccine due08/07/22and every 1year Due Adult COVID-19 Vaccination due10/14/22Unknown Frequency Shingles Vaccine due10/14/22One-time only Due In Future Body Mass Index not due until10/14/23and every 1year Satisfied(in the past 1 year) Satisfied Adult Influenza Vaccine on11/27/21.Satisfied by CECIL Bunn Shania Body Mass Index on10/14/22.Satisfied by CECIL Dsouza Paul Breast Cancer Screening on03/24/22.Satisfied by CECIL Sanchez Kiara Electronic Signature on File Electronically Reviewed/Signed by: Satinder Esquivel DO Author Signature Dt/Tm:10/14/2022 11:42 AM Resident Department of Family Medicine Electronically Reviewed/Signed by: Leah Mcdaniel MD Cosigner Signature Dt/Tm: 10/14/2022 01:54 PM [facility] [address] [place] [address] [place] Patient Care team information Care Team Personnel Name: TIFFANY Xavier Kimberly A Position: Physician Tax Accountant - Family Med Member Role: Lifetime Relationship Address: Address: [address] [place] [address] [place] Name: DO Beauchamp Franklin J Position: Physician - Family Med Member Role: Lifetime Relationship Address: Address: [address] [place] [address] Care Team Related Persons Name: ANAMANDEEP Address: home [address] [place] [address] ANGELES PERRY [phone]
--- OUTSIDE RECORDS SUMMARY | 2023-01-28 05:19 | External Medical Summary ---
Author Name Unknown Address Unknown Organization [id number]:[facility] [address] [place] [id number] Laboratory Report Ordering Provider Test Date Status RIDGEBASILIO FARRAR 11/10/2022 11:33:20 Final Observation Date Value Abnormality Reference (Units ) Status WBC, Total 11/10/2022 11:33:20 5.05 4.00-10.8 0 (K/uL) Final RBC 11/10/2022 11:33:20 4.20 3.85-5.15 (M/uL) Final Hemoglobin 11/10/2022 11:33:20 11.9 Below low normal 12 .0-15.3 (g/dL) Final HCT 11/10/2022 11:33:20 37.1 36.0-45.2 (%) Final MCV 11/10/2022 11:33:20 88.3 81.5-97.5 (fL) Final MCH 11/10/2022 11:33:20 28.3 27.0-34.0 (pg) Final MCHC 11/10/2022 11:33:20 32.1 32.0-36.0 (g/dL) Final RDW 11/10/2022 11:33:20 14.2 11.5-15.5 (%) Final Platelets 11/10/2022 11:33:20 310 140-400 (K /uL) Final MPV 11/10/2022 11:33:20 8.6 6.6-11.1 ( fL) Final Performing Location [facility] [address] [place] [id number]
--- OUTSIDE RECORDS SUMMARY | 2023-01-28 05:19 | External Medical Summary | Summary of Care ---
Author Name Unknown Organization [facility] Address [address] [address] Phone [phone] Care Team Providers Care Senior Marketing Data Analyst Name Role Phone Elan Beauchamp DO Primary Care Provider Encounter Details Date Type Department Care Team Description 08/31/2022 Telephone Rheumatology [facility] Margret Garcia [address] [place] [place] [address] [place] [address] [facility] [address] [facility] [place] [address] Allergies Active Allergy Reactions Severity Noted Date Comments Erythromycin 02/21/2003 Levofloxacin 01/20/2021 Lisinopril 01/20/2021 Other reaction(s): cough documented as of this encounter (statuses as of 09/02/2022) Medications Medication Sig Dispensed Refills Start Date [...] Hour (Tofacitinib Citrate ER)Indications:Infla mmatory polyarthritis (HCC) TAKE 1 TABLET BY MOUTH IN THE MORNING 30 Tablet 4 05/31/2022 4 Active documented as of this encounter (statuses as of 09/02/2022) Active Problems Problem Noted Date Rotator cuff arthropathy of right should er 01/20/2021 Inflammatory polyarthritis 11/07/2017 Undifferentiated connective tissue disea se 06/16/2016 Long-term use of immunosuppressant medic ation 06/16/2016 Sjogren's syndrome with keratoconjunctiv itis sicca 06/16/2016 Depression with anxiety 05/13/2016 RSD lower limb 02/15/2014 Convulsions 11/12/2004 Osteoarthritis-Generalized documented as of this encounter (statuses as of 09/02/2022) Immunizations Name Administration Dates Next Due COVID-19 mRNA, LNP-s, No Pre serve, 2-Dose Series (Mobile Pulse) 11/15/2020,05/14/2020,04/21/2020 Seasonal Influenza, QUAD, wi th Preserv, [...] on file documented as of this encounter Miscellaneous Notes * Telephone Encounter - Mikayla Tomlinson RPh - 08/31/2022 12:51 PM EDT Rheumatology Pharmacist Appointment Request Department & Provider: Rheumatology Santy CARLOS [[id number]] - Pharmacist Rheumatology Anabella Cid [[id number]] Patient to be scheduled for visit type: Telephonic Medicine Visit [[id number]] Length of visit: 30 min Reason for visit: lost to follow up - status check Time Frame: within 1-2 weeks Please route this encounter back to Rheum Pharmacist Refill Pool/Class [[id number]] if unable to schedule patient after 3 attempts. documented in this encounter Plan of Treatment Upcoming Encounters Date Type Specialty Care Team Description 09/10/2022 Telemedicine Rheumatology [facility], Pharmacist Rheumatology [address] [place] [address] Health Maintenance Due Date Last Done Comments Hepatitis B (1 of 3 - 3-dose series) 1967 Pneumococcal Vaccine: Pediatrics (0 to 5 Years) and At-Risk Patients (6 to 64 Years) (1 - PCV) 10/11/1973 Depression Screening, Annual for Pts 12 and Over 1979 HIV Screening 10/11/1982 DTaP,Tdap,and Td Vaccines [...] filedocumented as of this encounter Care Teams Senior Marketing Data Analyst Relationship Specialty Start Date End Date Elan Beauchamp DO [address] [place] [address] PCP - General Family Medicine 08/05/12 documented as of this encounter
--- OUTSIDE RECORDS SUMMARY | 2023-01-28 05:19 | External Medical Summary | Summary of Care ---
Author Name Unknown Organization [facility] Address [address] [place] [facility] [address] Phone [phone] Care Team Providers Care Magnetic Healer Name Role Phone Elan Beauchamp DO Primary Care Provider Encounter Details Date Type Department Care Team Description 08/23/2022 Specialty Pharmacy [facility], [address] [place] [address] Medication, [facility], [address] [place] [address] Allergies Active Allergy Reactions Severity Noted Date Comments Erythromycin 02/21/2003 Levofloxacin 01/20/2021 Lisinopril 01/20/2021 Other reaction(s): cough documented as of this encounter (statuses as of 08/23/2022) Medications Medication Sig Dispensed Refills Start Date [...] as of this encounter (statuses as of 08/23/2022) Active Problems Problem Noted Date Rotator cuff arthropathy of right should er 01/20/2021 Inflammatory polyarthritis 11/07/2017 Undifferentiated connective tissue disea se 06/16/2016 Long-term use of immunosuppressant medic ation 06/16/2016 Sjogren's syndrome with keratoconjunctiv itis sicca 06/16/2016 Depression with anxiety 05/13/2016 RSD lower limb 02/15/2014 Convulsions 11/12/2004 Osteoarthritis-Generalized documented as of this encounter (statuses as of 08/23/2022) Immunizations Name Administration Dates Next Due COVID-19 mRNA, LNP-s, No Pre serve, 2-Dose Series ([place]) 11/15/2020,05/14/2020,04/21/2020 Seasonal Influenza, QUAD, wi th Preserv, [...] as of this encounter Progress Notes * Alysa Lima CPhT - 08/23/2022 3:56 PM EDT Prescribed medication: Medication: Xeljanz Shipment date: 08/25 Delivery method: Specialty Mail Location Medication Delivered too? Prescription Address: [facility] [address] [place] [address] Alysa Lima CPhT [facility] 08/23/2022,3:56 PM documented in this encounter Plan of [...] Vaccines (1 of 2) 10/11/1986 Pap Smear 10/11/1997 Mammogram 2007 Cologuard 10/11/2012 Colonoscopy 10/11/2012 [...] filedocumented as of this encounter Care Teams Magnetic Healer Relationship Specialty Start Date End Date Elan Beauchamp, [address] [facility] [address] [place] [address] PCP - General Family Medicine 08/05/12 documented as of this encounter
--- OUTSIDE RECORDS SUMMARY | 2023-01-28 05:19 | External Medical Summary | Summary of Care ---
Author Name Unknown Organization [facility] Address [address] [place] [address] Phone [phone] Care Team Providers Care Card Hanger Name Role Phone Elan Beauchamp DO Primary Care Provider Reason for Visit * Reason Comments Rheum Follow Up Dosage Adjustment Via Phone (anticoag Cl inic) Encounter Details Date Type Department Care Team Description 09/10/2022 Telemedicine Rheumatology, [place] [address] [place] [address] [facility], Pharmacist Rheumatology [address] [place] [address] Inflammatory polyarthritis (HCC)* Allergies Active Allergy Reactions Severity Noted Date Comments Erythromycin 02/21/2003 Levofloxacin 01/20/2021 Lisinopril 01/20/2021 Other reaction(s): cough documented as of this encounter (statuses as of 09/10/2022) Medications Medication Sig Dispensed Refills Start Date End Date Status MULTIVITAL PO TABS 1 time daily 0 Acti ve PAXIL 40 MG PO TABS 1 time daily 0 Act maria g HYDROCODONE-ACETAMI NOPHEN 5-325 MG PO TABS 1 or 2 [...] 50 MG Oral Tablet (Zoloft) 0 09/26/2021 Active Nirmatrelvir&Ritona vir 300/100 20 x 150 MG & 10 x 100MG Oral Tablet Therapy Pack (Paxlovid (300/100))Indicatio ns:History of 2019 novel coronavirus disease (COVID-19),COVID-19 virus [...] Tablet Extended Release 24 Hour (Tofacitinib Citrate ER)Indications:Infl ammatory polyarthritis (HCC) Take one tablet by mouth daily. 30 Tablet 4 09/10/2022 Active Xeljanz XR 11 MG Oral Tablet Extended Release 24 Hour (Tofacitinib Citrate ER)Indications:Infl ammatory polyarthritis (HCC) TAKE 1 TABLET BY MOUTH IN THE MORNING 30 Tablet 4 05/31/2022 3 Discontinu ed(Refill) documented as of this encounter (statuses as of 09/10/2022) Active Problems Problem Noted Date Rotator cuff arthropathy of right should er 01/20/2021 Inflammatory polyarthritis 11/07/2017 Undifferentiated connective tissue disea se 06/16/2016 Long-term use of immunosuppressant medic ation 06/16/2016 Sjogren's syndrome with keratoconjunctiv itis sicca 06/16/2016 Depression with anxiety 05/13/2016 RSD lower limb 02/15/2014 Convulsions 11/12/2004 Osteoarthritis-Generalized documented as of this encounter (statuses as of 09/10/2022) Immunizations Name Administration Dates Next Due COVID-19 mRNA, LNP-s, No Pre serve, 2-Dose Series ([employer]) 11/15/2020,05/14/2020,04/21/2020 Seasonal Influenza, QUAD, wi th Preserv, [...] as of this encounter Progress Notes * Magalie Martinez, [facility] - 09/10/2022 9:13 AM EDT After connecting to the patient via telephone, the patient was identified by name and date of . Patient was then informed that this was a telephone call only visit. The patient agreed to participate. Visit Disposition: Routine follow-up Total call duration was 15 minutes. Clinical Pharmacy Service (Rheumatology): Medication Management PHYSICIAN ACTION NEEDED: follow-up appointment needed PROTOCOL IN PLACE Visit: status check ASSESSMENT (M06.4) Inflammatory polyarthritis (HCC) (primary encounter diagnosis) Patient is on the following medication(s): Xeljanz ER 11mg daily Hydroxychloroquine 200mg - two tablets at bedtime Patient states pain and swelling consistently and feels like she gets through day by day by just "surviving". Feels pain and swelling is heavily related to weather, stress, and activity levels. Feels great when taking prednisone but as soon as finished with taper, pain and swelling return. PLAN OF ACTION Medication Regimen: CONTINUE Xeljanz ER 11mg daily and hydroxychloroquine 200mg - two tablets daily Follow-Up Appointment(s): Pharmacist: no follow-up needed Physician: follow-up appt needs scheduled, will send TE to scheduling pool Joy Silverman is a 56 year old year old female presently on a medication regimen of Xeljanz andhydroxychloroquine. CURRENT MEDICATION REGIMEN Patient taking Xeljanz and hydroxychloroquine Patient has been on this medication for about a year Patient account of regimen effectiveness: improvement in symptoms Patient reports side effects while being on medication: no Chronic use of prednisone or NSAIDS: no, however, patient feels symptoms improved with prednisone taper and then went back into pain and swelling Patient has tried/failed/contraindicated to the following: Enbrel, meloxicam DISEASE ACTIVITY ASSESSMENT Morning stiffness lasting more than 30 minutes in the morning: yes Symptoms improve throughout the day: no Any flares in the past month?: yes Infections: yes - Lyme disease, covid x2 in past year Swelling: yes - wrist and ankle Number of work/school days missed in last month due to above noted condition: N/A LABORATORY VALUES Lab Results Component Value Date/Time WBC AUTO - [facility] 5.88 06/14/2022 03:55 PM WBC AUTO - [facility] 4.42 10/01/2021 01:40 PM WBC AUTO - [facility] 4.78 02/19/2021 12:43 PM WBC AUTO - [facility] 3.63 (L) 11/04/2017 11:41 AM WBC AUTO - [facility] 3.77 (L) 07/11/2017 03:39 PM WBC AUTO - [facility] 3.70 (L) 06/16/2016 10:34 AM WBC, URINE - [facility] 0 06/17/1997 04:30 PM WBC, URINE - [facility] 2 05/22/1997 04:26 PM Lab Results Component Value Date/Time HGB - [facility] 12.3 06/14/2022 03:55 PM HGB - [facility] 12.7 10/01/2021 01:40 PM HGB - [facility] 12.1 02/19/2021 12:43 PM HGB - [facility] 12.8 11/04/2017 11:41 AM HGB - [facility] 12.1 07/11/2017 03:39 PM HGB - [facility] 11.2 (L) 06/16/2016 10:34 AM Lab Results Component Value Date/Time HCT - [facility] 40.3 06/14/2022 03:55 PM HCT - [facility] 38.9 10/01/2021 01:40 PM HCT - [facility] 37.8 02/19/2021 12:43 PM HCT - [facility] 38.9 11/04/2017 11:41 AM HCT - [facility] 36.3 07/11/2017 03:39 PM HCT - [facility] 34.3 (L) 06/16/2016 10:34 AM No results found for: PLT Lab Results Component Value Date/Time CREATININE - [facility] 1.0 06/14/2022 03:55 PM CREATININE - [facility] 1.0 10/01/2021 01:40 PM CREATININE - [facility] 1.1 (H) 02/19/2021 12:43 PM CREATININE - [facility] 0.9 11/04/2017 11:41 AM CREATININE - [facility] 1.1 (H) 07/11/2017 03:39 PM CREATININE - [facility] 1.0 10/13/2016 10:27 AM Lab Results Component Value Date/Time BUN - [facility] 18 06/14/2022 03:55 PM BUN - [facility] 21 (H) 10/01/2021 01:40 PM BUN - [facility] 33 (H) 02/19/2021 12:43 PM BUN - [facility] 19 07/11/2017 03:39 PM BUN - [facility] 19 10/13/2016 10:27 AM BUN - [facility] 29 (H) 09/21/2016 12:47 PM Lab Results Component Value Date/Time AST - [facility] 23 06/14/2022 03:55 PM AST - [facility] 19 10/01/2021 01:40 PM AST - [facility] 20 02/19/2021 12:43 PM AST - [facility] 39 (H) 11/04/2017 11:41 AM AST - [facility] 18 07/11/2017 03:39 PM AST - [facility] 18 05/13/2016 10:31 AM Lab Results Component Value Date/Time ALT - [facility] 22 06/14/2022 03:55 PM ALT - [facility] 22 10/01/2021 01:40 PM ALT - [facility] 24 02/19/2021 12:43 PM ALT - [facility] 56 (H) 11/04/2017 11:41 AM ALT - [facility] 19 07/11/2017 03:39 PM ALT - [facility] 9 (L) 05/13/2016 10:31 AM Lab Results Component Value Date/Time LDL CHOLESTEROL (CALCULATED) - [facility] 105 12/22/2020 12:43 PM LDL CHOLESTEROL (DIRECT MEASURE) - [facility] 90 06/14/2022 03:55 PM LDL CHOLESTEROL (DIRECT MEASURE) - [facility] 106 10/01/2021 01:40 PM Magalie Martinez RPh [facility] Clinical Pharmacist Rheumatology Department 09/10/2022,9:13 AM documented in this encounter Plan of [...] Inflammatory polyarthritis (HCC)- Primary Unspecified inflammatory polyarthropathy documented in this encounter Care Teams Card Hanger Relationship Specialty Start Date End Date Elan Beauchamp DO [address] [address] PCP - General Family Medicine 08/05/12 documented as of this encounter
--- OUTSIDE RECORDS SUMMARY | 2023-01-28 05:19 | External Medical Summary | Summary of Care ---
Author Name Unknown Organization [facility] Address [address] [facility] [address] Phone [phone] Care Team Providers Care Gunsmith Apprentice Name Role Phone Elan Beauchamp DO Primary Care Provider Encounter Details Date Type Department Care Team Description 08/31/2022 Telephone Rheumatology [facility] Marg[address] Garcia [address] [place] [address] [place] [address] [facility] [address] [facility] [place] [address] Allergies Active Allergy Reactions Severity Noted Date Comments Erythromycin 02/21/2003 Levofloxacin 01/20/2021 Lisinopril 01/20/2021 Other reaction(s): cough documented as of this encounter (statuses as of 08/31/2022) Medications Medication Sig Dispensed Refills Start Date [...] as of this encounter (statuses as of 08/31/2022) Active Problems Problem Noted Date Rotator cuff arthropathy of right should er 01/20/2021 Inflammatory polyarthritis 11/07/2017 Undifferentiated connective tissue disea se 06/16/2016 Long-term use of immunosuppressant medic ation 06/16/2016 Sjogren's syndrome with keratoconjunctiv itis sicca 06/16/2016 Depression with anxiety 05/13/2016 RSD lower limb 02/15/2014 Convulsions 11/12/2004 Osteoarthritis-Generalized documented as of this encounter (statuses as of 08/31/2022) Immunizations Name Administration Dates Next Due COVID-19 mRNA, LNP-s, No Pre serve, 2-Dose Series ([employer]) 11/15/2020,05/14/2020,04/21/2020 Seasonal Influenza, QUAD, wi th Preserv, [...] Request Department & Provider: Rheumatology Santy CARLOS [[id number]] - Pharmacist Rheumatology Anabella Cid [[id number]] Patient to be scheduled for visit type: Telephonic Medicine Visit [[id number]] Length of visit: 30 min Reason for visit: lost to follow up - status check Time Frame: within 1-2 weeks Please route this encounter back to Rheum Pharmacist Refill Pool/Class [[phone] [phone]] if unable to schedule patient after 3 [...] filedocumented as of this encounter Care Teams Gunsmith Apprentice Relationship Specialty Start Date End Date Elan Beauchamp DO [address] [place] [address] PCP - General Family Medicine 08/05/12 documented as of this encounter
--- OUTSIDE RECORDS SUMMARY | 2023-01-28 05:20 | External Medical Summary | Continuity of Care Document ---
Author Name Unknown Organization [facility] [address] [facility] [address] [id number] Care Team Providers Care Thermoplastic Technician Name Role Phone Elan Beauchamp Primary Care Physician [phone] Encounter [facility] J[facility]IER [id number] Date(s): 08/13/22 - 08/13/22 [facility] 0 E [facility] 207 [facility] 1850 [facility] 207 [place], [place] [address] [phone] Encounter Diagnosis Seronegative polyarthritis(Discharge Diagnosis) - 08/13/22 Generalized seizure disorder(Discharge Diagnosis) - 08/13/22 Headache, migraine(Discharge Diagnosis) - 08/13/22 Anxiety(Discharge Diagnosis) - 08/13/22 Discharge Disposition: Home or Self Care Attending Physician: DO Beauchamp Franklin J Allergies, Adverse Reactions, Alerts Substance Reaction Severity Status erythromycin Active lisinopril cough Active Levaquin Active Assessment and Plan Extracted from: Title:Follow Up Author:DO Beauchamp Franklin J Da te:08/13/22 Impression and Plan Diagnosis Seronegative polyarthritis (VLU71-UY M13.0, Discharge, Medical). Generalized seizure disorder (FQF67-SS G40.309, Discharge, Medical). Anxiety (DSO42-EF F41.9, Discharge, Medical). Headache, migraine (MNT80-XN G43.909, Discharge, Medical). Seronegative polyarthritis (CLZ75-EU M13.0, Discharge, Medical). 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, improving Improved but not back to her baseline Her main concern today is recovering (at least to her baseline) prior to the planned trip next week Continue hydrocodone and baclofen (refills provided) After prolonged conversation of risk/benefits, will start on prednisone 10 mg daily Will stop ibuprofen and meloxicam May use acetaminophen as an adjuvant Hydrocodone as needed severe pain Seizure disorder (chronic/uncontrolled) Migraine headache (chronic/improved) Neurology note reviewed Migraines have been under fairly good control, but also flared since anaplasmosis/Lyme Anxiety/depression (Chronic/at goal) Continue sertraline to 50 mg daily; I think we are still safe at this dose in terms of seizure threshold Ativan 0.5 mg PRN, usually at night when the anxiety is the worst; she has used sparingly (about once per month). [facility] acetaminophen-HYDROcodone 325 mg-7.5 mg oral tablet (Prescribe): 1 tab, PO, q6h, PRN: as needed for pain, 40 tab, 0 Refill(s) predniSONE 10 mg oral tablet (Prescribe): 1 tab, PO, Daily, for 30 day, 30 tab, 1 Refill(s) baclofen 10 mg oral tablet (Prescribe): 1 tab, PO, bid, PRN, PRN: back pain, 45 tab, 1 Refill(s) baclofen 10 mg oral tablet (Modify): 1 tab, PO, bid, PRN, PRN: back pain, 45 tab, 1 Refill(s) acetaminophen-HYDROcodone 325 mg-7.5 mg oral tablet (Modify): 1 tab, PO, q6h, PRN: as needed for pain, 30 tab, 0 Refill(s). [facility]: LORazepam 0.5 mg oral tablet (Prescribe): See Instructions, TAKE 1 TABLET BY MOUTH ONCE DAILY NEEDED FOR ANXIETY, 30 tab, 3 Refill(s) LORazepam 0.5 mg oral tablet (Modify): See Instructions, TAKE 1 TABLET BY MOUTH ONCE DAILY NEEDED FOR ANXIETY, 24 tab, 3 Refill(s). [facility] Evaluation and Management: [id number] Outpatient Visit Est Lvl 4 (Order): 08/13/2022 08:20 EDT, FAMILY MEDICINE, Seronegative polyarthritis | Headache, migraine | Generalized seizure disorder | Anxiety. Immunizations Given and Recorded Vaccine Date Status Refusal Reason influenza virus vaccine, inactivated 11/27/21 Give n influenza virus vaccine, inactivated 12/24/20 Give n influenza virus vaccine, inactivated 10/16/19 Give n influenza virus vaccine, inactivated 11/19/16 Give n influenza virus vaccine, inactivated 11/24/15 Give n SARS-CoV-2 (COVID-19) mRNA BNT-162b2 vax 1 11/15/20 Recorded tetanus/diphtheria/pertuss, acel (Tdap) 11/19/16 G iven tetanus toxoids-diphtheria, Td (Adult) 06/13/02 Re corded 1Result Comment: 2021-09-22: Historical information-source unspecified Medications acetaminophen-HYDROcodone 325 mg-7.5 mg oral tablet Start: 08/13/22 8:17:00 EDT, 1 tab, PO, q6h, Disp# 40 tab, Refills: 0, Note to Pharmacy: ongoing tx; PMDP queried, PRN: as needed for pain, Pharmacy: [facility]229 Start Date: 08/13/22 Status: Ordered Albuterol (Eqv-Ventolin HFA) 90 mcg/inh inhalation aerosol Start: 06/09/22 8:45:00 EDT, 2 puff, inhaled, q6h, Disp# 8 g, Refills: 1, Pharmacy: [facility] Start Date: 06/09/22 Status: Ordered baclofen 10 mg oral tablet Start: 08/13/22 8:17:00 EDT, 1 tab, PO, bid, Disp# 45 tab, Refills: 1, PRN, PRN: back pain, Pharmacy: [facility] Start Date: 08/13/22 Status: Ordered doxycycline hyclate 100 mg oral capsule Start: 06/09/22 8:07:00 EDT Start Date: 06/09/22 Status: Ordered famotidine 20 mg oral tablet Start: 04/07/22 13:33:00 EST, 1 tab, PO, bid, Disp# 180 tab, Refills: 1, Pharmacy: [id number] Start Date: 04/07/22 Stop Date: 10/04/22 Status: Ordered gabapentin 300 mg oral capsule TAKE 1 CAPSULE BY MOUTH ONCE DAILY Start Date: 07/30/20 Status: Ordered hydroCHLOROthiazide-losartan 12.5 mg-50 mg oral tablet Start: 08/17/21 8:42:00 EDT, See Instructions, Disp# 90 tab, Refills: 3, Take 1 tablet by mouth once daily, Pharmacy: [facility] 2229 Start Date: 08/17/21 Status: Ordered hydroxychloroquine 200 mg oral tablet Start: 08/24/18 8:22:00 EDT Start Date: 08/24/18 Status: Ordered ibuprofen 600 mg oral tablet Start: 07/09/22 13:20:00 EDT, See Instructions, Disp# 120 tab, Refills: 3, TAKE 1 TABLET BY MOUTH 4TIMES DAILY NEEDED FOR PAIN, Pharmacy: [facility] 2229 Start Date: 07/09/22 Status: Ordered lamoTRIgine 150 mg oral tablet Start: 06/09/22 7:46:00 EDT Start Date: 06/09/22 Status: Ordered lamoTRIgine 200 mg oral tablet Start: 08/24/18 8:21:00 EDT Start Date: 08/24/18 Status: Ordered lamoTRIgine 25 mg oral tablet, disintegrating Start: 08/24/18 8:22:00 EDT Start Date: 08/24/18 Status: Ordered LORazepam 0.5 mg oral tablet Start: 08/13/22 8:19:00 EDT, See Instructions, Disp# 30 tab, Refills: 3, TAKE 1 TABLET BY MOUTH ONCE DAILY NEEDED FOR ANXIETY, Pharmacy: [facility] 2229 Start Date: 08/13/22 Status: Ordered meloxicam 15 mg oral tablet Start: 06/16/22 9:40:00 EDT, 1 tab, PO, Daily, Disp# 30 tab, Refills: 3, Pharmacy: [facility] Start Date: 06/16/22 Status: Ordered Multiple Vitamins oral tablet Start: 12/11/09 11:00:00, 1 tab, PO, Daily Start Date: 12/11/09 Status: Ordered naratriptan 2.5 mg oral tablet Start: 04/23/16 11:15:00, 1 tab, PO, ONCE, Disp# 9 tab, Refills: 0, PRN: as needed for headache, Pharmacy: [facility] 2229 Start Date: 04/23/16 Status: Ordered omeprazole 20 mg oral delayed release capsule Start: 07/09/22 12:07:00 EDT, See Instructions, Disp# 90 cap, Refills: 0, Take 1 capsule by mouth once daily for 90 days, Pharmacy: [facility] 2229 Start Date: 07/09/22 Status: Ordered predniSONE 10 mg oral tablet Start: 08/13/22 8:16:00 EDT, 1 tab, PO, Daily, Disp# 30 tab, Refills: 1, Pharmacy: [facility] Start Date: 08/13/22 Stop Date: 10/12/22 Status: Ordered Restasis 0.05% ophthalmic emulsion INSTILL 1 DROP INTO AFFECTED EYE(S) EVERY 12 HOURS Start Date: 07/30/20 Status: Ordered sertraline 100 mg oral tablet Start: 02/24/22 16:13:00 EST, 1 tab, PO, Daily, Disp# 90 tab, Refills: 0, Pharmacy: [facility] 2229 Start Date: 02/24/22 Stop Date: 05/25/22 Status: Ordered Topamax 100 mg oral tablet Start: 03/30/17 13:57:00, 1 tab, PO, bid Start Date: 03/30/17 Status: Ordered traZODone 50 mg oral tablet Start: 07/11/19 9:41:00 EDT, 1 tab, PO, qhs, Disp# 90 tab, Refills: 3, Pharmacy: [facility] 2229 Start Date: 07/11/19 Stop Date: 07/05/20 Status: Ordered Vitamin B12 Start: 02/24/22 15:22:00 EST, daily Start Date: 02/24/22 Status: Ordered Xeljanz XR 11 mg oral tablet, extended release Start: 07/30/20 9:37:00 EDT Start Date: 07/30/20 Status: Ordered Zofran ODT 4 mg oral tablet, disintegrating Start: 06/09/22 8:48:00 EDT, 1 tab, PO, q12h, Disp# 20 tab, PRN: as needed for nausea/vomiting, Pharmacy: [facility] Start Date: 06/09/22 Status: Ordered Mental Status 08/13/22 Barriers to Learning one year None evide nt Mandatory Health Literacy Documentation Yes Health Literacy Communication Barriers N ever Primary Language Upper Sorbian Problem List Condition Confirmation Course Effective Dates [...] Effective Dates Health Status Clinical Service Informant Seronegative polyarthritis Discharge Diagnosis 08/13/22 Non-Specified Headache, migraine Discharge Diagnosis 08/13/22 Non-Specified Generalized seizure disorder Discharge Diagnosis 08/13/22 Non-Specified Anxiety Discharge Diagnosis 08/13/22 Non-Specified Procedures Procedure Date Related Diagnosis Body Site [...] was withdrawn. Dilitation was performed with a Sequentau dilator with no resistance at 60 Fr. [...] oldest [Reference Range]: 1 Height 167.5 cm (08/13/22 7:55 AM) Patient Weight 86 kg (08/13/22 7:55 AM) Body Mass Index 30.65 kg/m2 (08/13/22 7:55 AM) Temperature [36.5-37.9 DegC] 36.9 DegC (08/13/22 7:55 AM) Heart Rate 84 bpm (08/13/22 7:55 AM) Blood Pressure 146/90mmHg (08/13/22 7:55 AM) Cuff Pulse Pressure 56 mmHg (08/13/22 7:55 AM) BP Location # 1 Left Arm (08/13/22 7:55 AM) Social History Social History Type Response Smoking Status Never smoked cigaret khloe Sex Female Outpatient Note * DO Beauchamp Franklin J: PERFORM, MODIFY, SIGN, VERIFY Event Display: .Outpt Note Authored Date: [id number] Patient: STANFORD HUTSON Age: 56 years Sex: Female : 1965 Associated Diagnoses: None Author: DO Beauchamp Franklin J Visit Information Visit type: Scheduled follow-up. Chief Complaint 08/13/2022 07:51 EDT Patient is here for a medication refill. History of Present Illness Has daughter's wedding later this month, and leaves in 11 days. She is worried about the trip out (car) with respect to her arthritis. Overall, she is feeling better but not back to her baseline. She has significant flare of her arthritis subsequent to her hospitalization with both Lyme and anaplasmosis. Review of Systems Constitutional: Negative. Respiratory: Negative. Cardiovascular: Negative. Musculoskeletal: Joint pain. Health Status Allergies: Allergic Reactions (Selected) Severity Not Documented Levaquin- No reactions were documented. Nonallergic Reactions (Selected) Severity Not Documented Erythromycin- No reactions were documented. Lisinopril- Cough.. Current medications: (Selected) Prescriptions Prescribed Albuterol (Eqv-Ventolin HFA) 90 mcg/inh inhalation aerosol: 2 puff, inhaled, q6h, 8 g, 1 Refill(s) LORazepam 0.5 mg oral tablet: See Instructions, TAKE 1 TABLET BY MOUTH ONCE DAILY NEEDED FOR ANXIETY, 24 tab, 3 Refill(s) Zofran ODT 4 mg oral tablet, disintegratin tab, PO, q12h, PRN: as needed for nausea/vomiting, 20 tab acetaminophen-HYDROcodone 325 mg-5 mg oral tablet: 1 tab, PO, q6h, May take two TABS for severe pain, not to exceed 8 tablets/day, PRN: as needed for pain, 45 tab, 0 Refill(s) baclofen 10 mg oral tablet: 1 tab, PO, bid, PRN, PRN: back pain, 45 tab, 1 Refill(s) famotidine 20 mg oral tablet: 1 tab, PO, bid, for 90 day, 180 tab, 1 Refill(s) hydroCHLOROthiazide-losartan 12.5 mg-50 mg oral tablet: See Instructions, Take 1 tablet by mouth once daily, 90 tab, 3 Refill(s) ibuprofen 600 mg oral tablet: See Instructions, TAKE 1 TABLET BY MOUTH 4 TIMES DAILY NEEDED FOR PAIN, 120 tab, 3 Refill(s) meloxicam 15 mg oral tablet: 1 tab, PO, Daily, 30 tab, 3 Refill(s) naratriptan 2.5 mg oral tablet: 1 tab, PO, ONCE, PRN: as needed for headache, 9 tab, 0 Refill(s) omeprazole 20 mg oral delayed release capsule: See Instructions, Take 1 capsule by mouth once dailyfor 90 days, 90 cap, 0 Refill(s) sertraline 100 mg oral tablet: 1 tab, PO, Daily, for 90 day, 90 tab, 0 Refill(s) traZODone 50 mg oral tablet: 1 tab, PO, qhs, for 90 day, 90 tab, 3 Refill(s) Documented Medications Documented Multiple Vitamins oral tablet: 1 tab, PO, Daily Restasis 0.05% ophthalmic emulsion: INSTILL 1 DROP INTO AFFECTED EYE(S) EVERY 12 HOURS Topamax 100 mg oral tablet: 1 tab, PO, bid Vitamin B12: daily Xeljanz XR 11 mg oral tablet, extended release: doxycycline hyclate 100 mg oral capsule: gabapentin 300 mg oral capsule: TAKE 1 CAPSULE BY MOUTH ONCE DAILY hydroxychloroquine 200 mg oral tablet: lamoTRIgine 150 mg oral tablet: lamoTRIgine 200 mg oral tablet: lamoTRIgine 25 mg oral tablet, disintegrating: . Problem list: Medical Anemia / ICD-9-CM 285.9 / Confirmed ANXIETY / ICD-9-CM 293.84 / Rule out Chronic migraine without aura / ICD-9-CM 346.7 / Rule out COVID-19 / SNOMED CT 4398567332 / Confirmed Depression / ICD-9-CM 311 / Confirmed Dysphagia / SNOMED CT 87916116 / Confirmed Epilepsy / ICD-9-CM 345.90 / Confirmed Effusion of left foot / SNOMED CT 414547697 / Confirmed Left foot pain / SNOMED CT 451956089 / Confirmed GERD / ICD-9-CM 530.81 / Rule out Hypertension / ICD-9-CM 401.9 / Confirmed Insomnia / ICD-9-CM 780.52 / Confirmed Schatzki's ring / SNOMED CT 466002341 / Confirmed Persistent cough / SNOMED CT 497783046 / Confirmed Sympathetic reflex dystrophy, 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 SEIZURE DISORDER / ICD-9-CM 345.10 / Rule out Sjogren's disease / SNOMED CT 477262096 / Confirmed Weight disorder / SNOMED CT 860318732 / Confirmed All Problems Anemia / ICD-9-CM 285.9 / Confirmed ANXIETY / ICD-9-CM 293.84 / Rule out Chronic migraine without aura / ICD-9-CM 346.7 / Rule out COVID-19 / SNOMED CT 2426966058 / Confirmed Depression / ICD-9-CM 311 / Confirmed Dysphagia / SNOMED CT 56508069 / Confirmed Epilepsy / ICD-9-CM 345.90 / Confirmed Effusion of left foot / SNOMED CT 289194059 / Confirmed Left foot pain / SNOMED CT 407072035 / Confirmed GERD / ICD-9-CM 530.81 / Rule out Hypertension / ICD-9-CM 401.9 / Confirmed Insomnia / ICD-9-CM 780.52 / Confirmed Schatzki's ring / SNOMED CT 441956477 / Confirmed Persistent cough / SNOMED CT 533051862 / Confirmed Sympathetic reflex dystrophy, lower limb / SNOMED CT 0724350894 / Confirmed SEIZURE DISORDER / ICD-9-CM 345.10 / Rule out Sjogren's disease / SNOMED CT 988811616 / Confirmed Weight disorder / SNOMED CT 927894532 / Confirmed. Histories Family History: Heart Failure Father Diabetes Father High Blood Pressure Father . Social History Social & Psychosocial Habits Substance Abuse 05/19/2012 Risk Assessment: Denies Substance Abuse Tobacco 05/19/2012 Risk Assessment: Denies Tobacco Use 07/25/2015 Use: Never smoker . Physical Examination Vital Signs 08/13/2022 07:55 EDT Temperature 36.9 DegC Temperature Route Oral Heart Rate 84 bpm Systolic Blood Pressure 146 mmHg Diastolic Blood Pressure 90 mmHg BP Location # 1 Left Arm BP Cuff Size Regular Cuff Pulse Pressure 56 mmHg SpO2 98 % Measurements from flowsheet : Measurements 08/13/2022 07:55 EDT Osteoporosis Screening Tool 6.40 08/13/2022 07:55 EDT Height 167.5 cm Patient Weight 86 kg Weight 86.000 kg Weight Method Standing Scale Body Mass Index 30.65 kg/m2 Body Surface Area 2 m2 [place] Body Weight 59.2 kg Height/Weight Refused Height/Weight Taken General: Alert and oriented. Neck: Supple, Non-tender. Respiratory: Respirations are non-labored. Cardiovascular: Normal rate. Neurologic: Alert, Oriented, Normal sensory. Cognition and Speech: Oriented, Speech clear and coherent, Functional cognition intact. Psychiatric: Cooperative, Appropriate mood & affect, Normal judgment. Impression and Plan Diagnosis Seronegative polyarthritis (OAM07-ZH M13.0, Discharge, Medical). Generalized seizure disorder (MLS12-VR G40.309, Discharge, Medical). Anxiety (OJF70-LS F41.9, Discharge, Medical). Headache, migraine (BIF19-FF G43.909, Discharge, Medical). Seronegative polyarthritis (OPS06-VS M13.0, Discharge, Medical). 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, improving Improved but not back to her baseline Her main concern today is recovering (at least to her baseline) prior to the planned trip next week Continue hydrocodone and baclofen (refills provided) After prolonged conversation of risk/benefits, will start on prednisone 10 mg daily Will stop ibuprofen and meloxicam May use acetaminophen as an adjuvant Hydrocodone as needed severe pain Seizure disorder (chronic/uncontrolled) Migraine headache (chronic/improved) Neurology note reviewed Migraines have been under fairly good control, but also flared since anaplasmosis/Lyme Anxiety/depression (Chronic/at goal) Continue sertraline to 50 mg daily; I think we are still safe at this dose in terms of seizure threshold Ativan 0.5 mg PRN, usually at night when the anxiety is the worst; she has used sparingly (about once per month). Orders [facility]: acetaminophen-HYDROcodone 325 mg-7.5 mg oral tablet (Prescribe): 1 tab, PO, q6h, PRN: as needed forpain, 40 tab, 0 Refill(s) predniSONE 10 mg oral tablet (Prescribe): 1 tab, PO, Daily, for 30 day, 30 tab, 1 Refill(s) baclofen 10 mg oral tablet (Prescribe): 1 tab, PO, bid, PRN, PRN: back pain, 45 tab, 1 Refill(s) baclofen 10 mg oral tablet (Modify): 1 tab, PO, bid, PRN, PRN: back pain, 45 tab, 1 Refill(s) acetaminophen-HYDROcodone 325 mg-7.5 mg oral tablet (Modify): 1 tab, PO, q6h, PRN: as needed for pain, 30 tab, 0 Refill(s). [facility]: LORazepam 0.5 mg oral tablet (Prescribe): See Instructions, TAKE 1 TABLET BY MOUTH ONCE DAILY NEEDED FOR ANXIETY, 30 tab, 3 Refill(s) LORazepam 0.5 mg oral tablet (Modify): See Instructions, TAKE 1 TABLET BY MOUTH ONCE DAILY NEEDED FOR ANXIETY, 24 tab, 3 Refill(s). Patients Know Best Evaluation and Management: [id number] Outpatient Visit Est Lvl 4 (Order): 08/13/2022 08:20 EDT, FAMILY MEDICINE, Seronegative polyarthritis | Headache, migraine | Generalized seizure disorder | Anxiety. Electronic Signature on File Electronically Reviewed/Signed by: Elan Beauchamp DO Author Signature Dt/Tm:08/13/2022 11:50 AM Department of Family Medicine [facility] Patient Care team information Care Team Personnel Name: TIFFANY Xavier, Rose Estrada Position: Physician Business Programmer - Family Med Member Role: Lifetime Relationship Address: Address: [address] [place] [address] Name: DO Beauchamp Franklin J Position: Physician - Family Med Member Role: Lifetime Relationship Address: Address: [address] [place] [address] Care Team Related Persons Name: MANDEEP PEREZ Address: home [address] [place] [address] ANGELES PERRY [phone]"
--- OUTSIDE RECORDS SUMMARY | 2023-01-28 05:20 | External Medical Summary | Summary of Care ---
Author Name Unknown Organization [facility] Address [address] [place] [address] Phone [phone] Care Team Providers Care Magnesium Mill Operator Name Role Phone Elan Beauchamp DO Primary Care Provider Reason for Visit * Reason Onset Date Comments Appointment 08/18/2022 Encounter Details Date Type Department Care Team Description 08/18/2022 Telephone [facility] [place] [address] [id number] [facility] [address] [place] [address] Appointment Allergies Active Allergy Reactions Severity Noted Date Comments Erythromycin 02/21/2003 Levofloxacin 01/20/2021 Lisinopril 01/20/2021 Other reaction(s): cough documented as of this encounter (statuses as of 08/19/2022) Medications Medication Sig Dispensed Refills Start Date [...] as of this encounter (statuses as of 08/19/2022) Active Problems Problem Noted Date Rotator cuff arthropathy of right should er 01/20/2021 Inflammatory polyarthritis 11/07/2017 Undifferentiated connective tissue disea se 06/16/2016 Long-term use of immunosuppressant medic ation 06/16/2016 Sjogren's syndrome with keratoconjunctiv itis sicca 06/16/2016 Depression with anxiety 05/13/2016 RSD lower limb 02/15/2014 Convulsions 11/12/2004 Osteoarthritis-Generalized documented as of this encounter (statuses as of 08/19/2022) Immunizations Name Administration Dates Next Due COVID-19 mRNA, LNP-s, No Pre serve, 2-Dose Series ([employer]) 11/15/2020,05/14/2020,04/21/2020 Seasonal Influenza, QUAD, wi th Preserv, [...] encounter Miscellaneous Notes * Telephone Encounter - Cori Fishman CPhT - 08/19/2022 2:45 PM EDT Patient Phone Numbers Sent MyG message to patient to schedule MTD appointment for Lost to follow up. Appointment scheduled as noted below. 08/27/2022 Cori Fishman CPhT-Adv [employer] [place] [employer] [facility] ([facility] (formerly Telepharmacy) 08/19/2022,2:46 PM * Telephone Encounter - Magalie Martinez RPh - 08/18/2022 1:22 PM EDT Rheumatology Pharmacist Appointment Request Department & Provider: Rheumatology [facility] Olivia [[id number]] - Pharmacist Rheumatology [facility] [[id number]] Patient to be scheduled for visit type: Telephonic Medicine Visit [[id number]] Length of visit: 30 min Reason for visit: lost to follow up Time Frame: within 1 week Please schedule for a Tuesday or Tuesday 8-10:30am, thanks! Please route this encounter back to Rheum Pharmacist Refill Pool/Class [[id number]] if unable to schedule patient after 3 attempts. documented in this encounter Plan of Treatment Upcoming Encounters Date Type Specialty Care Team Description 08/27/2022 Telemedicine Rheumatology [facility], Pharmacist Rheumatology [address] [facility] [place] [address] Health Maintenance Due Date Last Done Comments [...] 10/11/2012 Sigmoidoscopy 10/11/2012 COVID-19 Vaccine (4 - Booste r for Pfizer series) 01/10/2021 11/15/2020, 05/14/2020, 04/21/2020 Influenza Vaccine [...] filedocumented as of this encounter Care Teams Magnesium Mill Operator Relationship Specialty Start Date End Date Elan Beauchamp DO [address] [place] [address] PCP - General Family Medicine 08/05/12 documented as of this encounter
--- OUTSIDE RECORDS SUMMARY | 2023-01-28 05:20 | External Medical Summary | Summary of Care ---
Author Name Unknown Organization [facility] Address [address] [place] [address] Phone [phone] Care Team Providers Care Line Lead Name Role Phone Elan Beauchamp DO Primary Care Provider Encounter Details Date Type Department Care Team Description 08/18/[address] [facility] [place] [address], [place] [id number] [facility] [address], [place] [id number] Allergies Active Allergy Reactions Severity Noted Date Comments Erythromycin 02/21/2003 Levofloxacin 01/20/2021 Lisinopril 01/20/2021 Other reaction(s): cough documented as of this encounter (statuses as of 08/18/2022) Medications Medication Sig Dispensed Refills Start Date [...] as of this encounter (statuses as of 08/18/2022) Active Problems Problem Noted Date Rotator cuff arthropathy of right should er 01/20/2021 Inflammatory polyarthritis 11/07/2017 Undifferentiated connective tissue disea se 06/16/2016 Long-term use of immunosuppressant medic ation 06/16/2016 Sjogren's syndrome with keratoconjunctiv itis sicca 06/16/2016 Depression with anxiety 05/13/2016 RSD lower limb 02/15/2014 Convulsions 11/12/2004 Osteoarthritis-Generalized documented as of this encounter (statuses as of 08/18/2022) Immunizations Name Administration Dates Next Due COVID-19 mRNA, LNP-s, No Pre serve, 2-Dose Series ([employer]) 11/15/2020,05/14/2020,04/21/2020 Seasonal Influenza, QUAD, wi th Preserv, [...] encounter Miscellaneous Notes * Telephone Encounter - Magalie Martinez RPh - 08/18/2022 1:40 PM EDT See alternative TE 08/18 documented in this encounter Plan of Treatment [...] filedocumented as of this encounter Care Teams Line Lead Relationship Specialty Start Date End Date Elan Beauchamp DO [address] [place] [address] PCP - General Family Medicine 08/05/12 documented as of this encounter
--- OUTSIDE RECORDS SUMMARY | 2023-01-28 05:20 | External Medical Summary | Summary of Care ---
Author Name Unknown Organization [facility] Address [address] [place] [address] Phone [phone] Care Team Providers Care Windows Mobile Developer Name Role Phone Elan Beauchamp DO Primary Care Provider Reason for Visit * Reason Onset Date Comments Appointment 08/18/2022 Encounter Details Date Type Department Care Team Description 08/18/2022 Telephone [facility], [place] [address] [id number] [facility] [address] [place] [address] Appointment Allergies Active Allergy Reactions [...] mRNA, LNP-s, No Pre serve, 2-Dose Series ([employer]) 11/15/2020,05/14/2020,04/21/2020 Seasonal Influenza, QUAD, wi th Preserv, [...] Pharmacist Appointment Request Department & Provider: Rheumatology [facility] [place] [[id number]] - Pharmacist Rheumatology [facility] [[id number]] Patient to be scheduled for visit type: Telephonic Medicine Visit [[id number]] Length of visit: 30 min Reason for visit: lost to follow up Time Frame: within 1 week Please schedule for a Tuesday or Tuesday 8-10:30am, thanks! Please route this encounter back to Rheum Pharmacist Refill Pool/Class [p [id number]] if unable to schedule patient after 3 [...] filedocumented as of this encounter Care Teams Windows Mobile Developer Relationship Specialty Start Date End Date Elan Beauchamp DO [address] [address] PCP - General Family Medicine 08/05/12 documented as of this encounter
--- OUTSIDE RECORDS SUMMARY | 2023-01-28 05:20 | External Medical Summary | Summary of Care ---
Author Name Unknown Organization [facility] Address [address] [place] [address] Phone [phone] Care Team Providers Care Labor Economist Name Role Phone Elan Beauchamp DO Primary Care Provider Reason for Visit * Reason Onset Date Comments Appointment 08/18/2022 Encounter Details Date Type Department Care Team Description 08/18/2022 Telephone [facility] [place] [address] [id number] [facility] [address] [place] [address] Appointment Allergies Active Allergy Reactions [...] mRNA, LNP-s, No Pre serve, 2-Dose Series ([employer]) 11/15/2020,05/14/2020,04/21/2020 Seasonal Influenza, QUAD, wi th [...] Pharmacist Appointment Request Department & Provider: Rheumatology [facility] [place] [[id number]] - Pharmacist Rheumatology [facility] [[id number]] Patient to be scheduled for visit type: Telephonic Medicine Visit [[id number]] Length of visit: 30 min Reason for visit: lost to follow up Time Frame: within 1 week Please schedule for a Tuesday or Tuesday 8-10:30am, thanks! Please route this encounter back to Rheum Pharmacist Refill Pool/Class [p [id number]] if unable to schedule patient after 3 [...] filedocumented as of this encounter Care Teams Labor Economist Relationship Specialty Start Date End Date Elan Beauchamp DO [address] [address] PCP - General Family Medicine 08/05/12 documented as of this encounter
[2023-01-28] MEDS ORDERED: diphenhydrAMINE 50 MG/ML VIAL IV PRN (06:21)
[2023-01-28] MEDS ORDERED: ALBUT/IPRATROP 3MG/0.5MG NEB 3 ML VIAL NEB PRN (06:21)
[2023-01-28] MEDS ORDERED: ACETAMINOPHEN 1000 MG/100 ML IV IV PRN (06:21)
[2023-01-28] MEDS ORDERED: BACLOFEN 10 MG TAB PO PRN (06:21)
[2023-01-28] MEDS ORDERED: ONDANSETRON INJ 2 MG/ML 2 ML VIAL IV PRN (06:21)
[2023-01-28] MEDS: HYDROmorphone INJ 1 MG/ML SYRINGE IV PRN ×3 (06:53→13:42)
--- NOTE | 2023-01-28 07:12 | XRay Report ---
XR humerus RT 2V, XR shoulder RT min 2V routine CLINICAL HISTORY: right shoulder trauma. Right shoulder and arm pain. COMPARISON STUDY: None. FINDINGS: There is a comminuted and displaced fracture within the right humeral head/neck. The domina nt humeral head fragment demonstrates anterior dislocation. The mid to distal shaft of the humerus is intact. There is soft tissue swelling within the right shoulder. The right clavicle is intact. Sligh tly distracted fracture within the coracoid process. IMPRESSION: 1. Fracture/dislocation of the comminuted and displaced right humeral head/neck fracture. 2. Slightly distracted fracture of the coracoid process. ACT 112: Negative or not required by law. Electronically signed by: Braulio Vann M.D. 01/28/2023 7:10 AM
--- NOTE | 2023-01-28 07:12 | XRay Report ---
XR chest 1V portable HISTORY: trauma COMPARISON: Chest 06/03/2022. FINDINGS: Rotated study. There are low lung volumes. No pneumothorax. No pleural effusions. Right hum eral head fracture/dislocation again noted. The heart is mildly enlarged. There is mild central pulmo nary vascular congestion without overt edema. Bibasilar linear densities favor subsegmental atelectas is. IMPRESSION: 1. Rotated study. 2. Cardiomegaly and mild pulmonary vascular congestion. 3. A right humeral fracture/dislocation is again noted. ACT 112: Negative or not required by law. Electronically signed by: Braulio Vann M.D. 01/28/2023 7:11 AM
[2023-01-28] MEDS: lamoTRIgine 100 MG TAB PO SCH ×2 (08:06→20:04)
[2023-01-28] MEDS: SERTRALINE HCL 100 MG TABLET PO SCH (08:06)
[2023-01-28] MEDS: GABAPENTIN 300 MG CAP PO SCH ×3 (08:06→20:03)
[2023-01-28] MEDS: POTASSIUM CHLORIDE CRTAB 20 MEQ TABCR PO SCH (08:07)
[2023-01-28 08:46] LABS: Appearance Urine Clear (Clear); Bilirubin Urine Negative (Negative); Blood Urine Negative (Negative); Color Urine Yellow; Glucose Urine UA Negative (Negative); Ketones Urine Negative (Negative); Leukocyte Esterase Urine Negative (Negative); Nitrite Urine Negative (Negative); Protein Urine Negative (Negative); Specific Gravity Urine 1.019 (1.000-1.030); Urobilinogen Urine Negative (Negative)
--- NOTE | 2023-01-28 08:57 | Neurology Consultation ---
Date of Consultation January 28, 2023 Assessment & Plan (1) Seizure: History of Present Illness Attending Physician: Leon Valenzuela MD History of Present Illness HPI: 57 yo female with hx of epilepsy, well known to neurology clinic as pt is followed by Dr. Bennett. last seen in September 2022. pt is on lamictal and trileptal for seizure. she has been doing well but she had a seizure event yesterday and fell and broke her rt shoulder/humerus. she does admit she was under increase stress due to family issue and one of her triggers for her seizure is stress. also lack of sleep chronically. this morning doing well from seizure stand point, no further events. pt is planning to transfer out for orthopedic surgery today. admission HPI: The patient is a 57-year-old female with a past medical history including seizure disorder, Sjogren syndrome, hypertension, depression, B12 deficiency, vitamin D deficiency, Raynaud's disease, mixed connective tissue disease, depression with anxiety and migraine without aura. She reportedly had a tonic-clonic seizure of about 15 minutes duration as witnessed by her . Upon presentation to the emergency department, she was noted to have severe r ight shoulder swelling and complaining of severe right shoulder pain. X-rays and CT of right shoulder revealed a right humeral neck fracture with anterior dislocation of the humeral head relative to the glenoid, and coracoid process fracture. The case had been discussed by the emergency department with orthopedic surgery, Dr. Avila, and possible transfer is being discussed with [facility] orthopedic surgery, however, patient will be need to be admitted to [facility] for pain control until appropriate transfer can be arranged. The patient reports not having had a seizure for the past 3 years prior to this evening Allergies Allergy/AdvReac Type Severity Reaction Status Date / Time erythromycin base Allergy Intermediate RASH Verified 01/28/23 01:35 Home Medications Medication Instructions Recorded Confirmed Type losartan 50 mg-hydrochlorothiazide 1 tab PO QAM 02/23/19 01/28/23 History 12.5 mg tablet multivitamin (Daily Multi-Vitamin 1 tab PO QAM 02/23/19 01/28/23 History tablet) baclofen 10 mg tablet 10 mg PO BID PRN muscle spasm #60 05/18/21 01/28/23 Rx tabs oxcarbazepine 300 mg tablet 300 mg PO BID #60 tabs 08/18/21 01/28/23 Rx (Trileptal) gabapentin 300 mg capsule 300 mg PO TID 03/22/22 01/28/23 History lorazepam 0.5 mg tablet 0.5 mg PO DAILY PRN Anxiety 03/22/22 01/28/23 History omeprazole 20 mg capsule,delayed 20 mg PO QAM 03/22/22 01/28/23 History release ondansetron 4 mg disintegrating 4 mg translingual TID PRN nausea 03/22/22 01/28/23 History tablet and vomiting sertraline 100 mg tablet 100 mg PO QAM 03/22/22 01/28/23 History tofacitinib 11 mg tablet,extended 11 mg PO HS 03/22/22 01/28/23 History release 24 hr (Xeljanz XR) lamotrigine 150 mg tablet 300 mg (2 x 150 mg) PO BID 90 days 06/25/22 01/28/23 Rx #360 tabs lamotrigine 25 mg disintegrating 25 mg PO DAILY PRN aura, anxiety 08/13/22 01/28/23 Rx tablet 30 days #30 tabs cyanocobalamin (vitamin B-12) 1,000 mcg IM MONTHLY monthly #1 mL 10/15/22 01/28/23 Rx 1,000 mcg/mL injection solution syringe with needle 3 mL 23 x 1" #4 ea 10/15/22 Rx (BD Eclipse Luer-Navarro) galcanezumab-gnlm 120 mg/mL 120 mg subcut MONTHLY #1 mL 11/10/22 01/28/23 Rx subcutaneous pen injector (Emgality Pen) hydrocodone 7.5 mg-acetaminophen 1 tab PO QID PRN Pain 01/28/23 01/28/23 History 325 mg tablet ibuprofen 600 mg tablet 600 mg PO QID PRN Pain 01/28/23 01/28/23 History Patient History Medical History (Updated 01/28/23 @ 04:35 by Akash Don MD) UTI (urinary tract infection) Sepsis Abnormal urinalysis Lyme disease, acute History of COVID-19 09/2021, home test, tx w/paxlovid>resolved Raynauds disease Sjogren's disease Mixed connective tissue disease Anemia hx Hypertension Depression with anxiety Migraine without aura, not intractable, without status migrainosus Epilepsy most recent seizure 03/2021 Seizure Surgical History Hx of colonoscopy History of esophagogastroduodenoscopy (EGD) Hx laparoscopic cholecystectomy History of hysteroscopy S/P tubal ligation Family History Sister Myocardial infarction Father Myocardial infarction Denies family history of Ovarian cancer Prostate cancer Breast cancer Colorectal cancer Social History Smoking Status: Never smoker Second Hand Exposure: No; Do You Dip or Chew Tobacco: No; Hx Alcohol Use: No Hx Substance Use: No Preferred Language: Spanish Communication Ability: Effective Software Engineering Supervisor Required: No Beliefs That Will Affect Care: None Current Living Situation: Spouse Current Living Situation Comment: Lives with fiance Feels Safe at Home: Yes Assistive Devices: Denture - Upper, Denture - Lower and Glasses Exam (Neuro) Physical Exam: HEENT: normocephalic Neuro: Mental: AOx4, fluent speech, normal comprehension, no apraxia, no L/R confusion, no neglect CN: PERRL, Full EOM, symmetric face, intact sensation t/o face, midline T/U/P, 5/5 SCM/traps. Motor: No abnormal movements, normal tone and bulk, 5/5 t/o bilaterally except rt UE in sling and not tested due to her fx. Sens: intact to touch b/l grossly Coord: intact left arm. Impression: 57 yo female with known epilepsy and had breakthrough seizure likely due to sleep deprivation and stress (known trigger for her seizure). currently stable with rt shoulder/humerus bone fx. Recommendations: -recommend increasing trileptal to 300mg AM and 600mg PM. continue same lamictal no need for EEG or other testing at this point. pending transfer for orthopedic surgery. no issue from neurology for orthopedic procedures. pt can f/u with Dr. Bennett once discharged and after surgery at neurology clinic as routine follow up. seizure precaution. call again if new question. Chart reviewed I have spent more than 50% educating patient about potential diagnosis and neurological evaluation and coordinating care with patient's treatment team. Total time spent (including chart review and coordination of care): 60 min (this includes chart review). Results & Data Vital Signs (Past 12 Hours) Vital Signs Temp Pulse Pulse Resp BP BP Pulse Ox 01/28/23 08:34 36.8 C 86 18 138/91 99 01/28/23 06:29 01/28/23 06:21 37.2 C 88 18 154/99 H 100 01/28/23 06:21 37.2 C 88 18 154/99 H 100 01/28/23 06:21 01/28/23 05:30 93 H 14 128/89 97 01/28/23 05:00 92 H 18 143/87 H 98 01/28/23 04:30 93 H 14 153/97 H 98 01/28/23 04:08 95 H 01/28/23 03:30 95 H 18 149/96 H 98 01/28/23 02:30 90 28 H 146/93 H 98 01/28/23 02:00 88 24 155/103 H 100 01/28/23 02:00 89 23 100 01/28/23 01:52 12 100 01/28/23 01:51 56 L 01/28/23 01:31 146/94 H 01/28/23 01:31 89 28 H 94 01/28/23 01:30 87 23 95 01/28/23 01:00 91 H 18 163/98 H 01/28/23 00:31 90 23 155/101 H 01/28/23 00:30 94 H 23 01/28/23 00:15 94 H 25 H 153/106 H 94 01/28/23 00:15 01/28/23 00:14 94 H 27 H 94 01/28/23 00:14 153/106 H 01/28/23 00:13 95 H 01/28/23 00:04 36.8 C 100 H 20 154/101 H 98 Pulse Ox O2 Del Method O2 Del Method O2 Flow Rate O2 Flow Rate 01/28/23 08:34 Nasal Cannula 01/28/23 06:29 Nasal Cannula 4 01/28/23 06:21 Oxymask 4 01/28/23 06:21 Oxymask 4 01/28/23 06:21 100 Oxymask 4 01/28/23 05:30 Oxymask 4 01/28/23 05:00 Oxymask 01/28/23 04:30 Oxymask 4 01/28/23 04:08 01/28/23 03:30 Oxymask 4 01/28/23 02:30 Oxymask 4 01/28/23 02:00 Room Air 01/28/23 02:00 01/28/23 01:52 Oxymask 10 01/28/23 01:51 Nasal Cannula, Oxymask 4 01/28/23 01:31 01/28/23 01:31 01/28/23 01:30 01/28/23 01:00 01/28/23 00:31 01/28/23 00:30 01/28/23 00:15 Room Air 01/28/23 00:15 Room Air 01/28/23 00:14 01/28/23 00:14 01/28/23 00:13 01/28/23 00:04 Room Air PG Care Time/CCT Total # of Minutes Spent Total Time Spent with Patient: Total time spent is greater than 50% in coordination of care (as documented) at patient's floor/unit and/or counseling patient: Coding Level of Care Code 42601 IN/OBS CONSULT LVL 4,60M Diagnoses Seizure R56.9
[2023-01-28] MEDS ORDERED: OXcarbazepine 150 MG TABLET PO SCH ×2 (09:00→21:00)
--- NOTE | 2023-01-28 10:07 | Orthopedic Consultation ---
Date of Consultation January 28, 2023 Assessment & Plan (1) Fracture of humeral head, right, closed: IMPRESSION: Closed, comminuted fracture dislocation right proximal humerus and minimally displaced coracoid fracture. PLAN: Patient has been admitted to Hospitalist service. Discussed the complicated nature of the fractures and that she needs a higher level of care. Discussed options with patient, which I discussed with [facility], of transfer to [facility] for ORIF this weekend by Dr. Angel Pace versus referral as an outpatient to Shoulder and Elbow service next week with possible Reverse TSA, understanding that she may require conversion to [facility] at a later date following ORIF due to failure or AVN. She has concerns about her pain control and would like to be transferred to [facility] for ORIF. Continue care per hospitalist service, with RICE, sling for comfort, and pain control. (2) Fracture of coracoid process of right scapula: See above History of Present Illness Reason for Consultation: Right proximal humerus fracture, dislocation, and coracoid fracture Requesting Physician: Nellie Avila MD Attending Physician: Leon Valenzuela MD History of Present Illness 57 year old female unwitnessed ground level fall following seizure last evening with right shoulder pain. Brought to ED, where x-rays, CT were preformed and I was consulted for further evaluation and treatment. Discussed findings with ED and [facility] on-call, to determine a plan. Allergies Allergy/AdvReac Type Severity Reaction Status Date / Time erythromycin base Allergy Intermediate RASH Verified 01/28/23 01:35 Home Medications Medication Instructions Recorded Confirmed Type losartan 50 mg-hydrochlorothiazide 1 tab PO QAM 02/23/19 01/28/23 History 12.5 mg tablet multivitamin (Daily Multi-Vitamin 1 tab PO QAM 02/23/19 01/28/23 History tablet) baclofen 10 mg tablet 10 mg PO BID PRN muscle spasm #60 05/18/21 01/28/23 Rx tabs oxcarbazepine 300 mg tablet 300 mg PO BID #60 tabs 08/18/21 01/28/23 Rx (Trileptal) gabapentin 300 mg capsule 300 mg PO TID 03/22/22 01/28/23 History lorazepam 0.5 mg tablet 0.5 mg PO DAILY PRN Anxiety 03/22/22 01/28/23 History omeprazole 20 mg capsule,delayed 20 mg PO QAM 03/22/22 01/28/23 History release ondansetron 4 mg disintegrating 4 mg translingual TID PRN nausea 03/22/22 01/28/23 History tablet and vomiting sertraline 100 mg tablet 100 mg PO QAM 03/22/22 01/28/23 History tofacitinib 11 mg tablet,extended 11 mg PO HS 03/22/22 01/28/23 History release 24 hr (Xeljanz XR) lamotrigine 150 mg tablet 300 mg (2 x 150 mg) PO BID 90 days 06/25/22 01/28/23 Rx #360 tabs lamotrigine 25 mg disintegrating 25 mg PO DAILY PRN aura, anxiety 08/13/22 01/28/23 Rx tablet 30 days #30 tabs cyanocobalamin (vitamin B-12) 1,000 mcg IM MONTHLY monthly #1 mL 10/15/22 01/28/23 Rx 1,000 mcg/mL injection solution syringe with needle 3 mL 23 x 1" #4 ea 10/15/22 Rx (BD Eclipse Luer-Navarro) galcanezumab-gnlm 120 mg/mL 120 mg subcut MONTHLY #1 mL 11/10/22 01/28/23 Rx subcutaneous pen injector (Emgality Pen) hydrocodone 7.5 mg-acetaminophen 1 tab PO QID PRN Pain 01/28/23 01/28/23 History 325 mg tablet ibuprofen 600 mg tablet 600 mg PO QID PRN Pain 01/28/23 01/28/23 History Patient History Medical History (Updated 01/28/23 @ 04:35 by Akash Don MD) UTI (urinary tract infection) Sepsis Abnormal urinalysis Lyme disease, acute History of COVID-19 09/2021, home test, tx w/paxlovid>resolved Raynauds disease Sjogren's disease Mixed connective tissue disease Anemia hx Hypertension Depression with anxiety Migraine without aura, not intractable, without status migrainosus Epilepsy most recent seizure 03/2021 Seizure Surgical History Hx of colonoscopy History of esophagogastroduodenoscopy (EGD) Hx laparoscopic cholecystectomy History of hysteroscopy S/P tubal ligation Family History Sister Myocardial infarction Father Myocardial infarction Denies family history of Ovarian cancer Prostate cancer Breast cancer Colorectal cancer Social History Smoking Status: Never smoker Second Hand Exposure: No; Do You Dip or Chew Tobacco: No; Hx Alcohol Use: No Hx Substance Use: No Preferred Language: Persian Communication Ability: Effective Knit Goods Mender Required: No Beliefs That Will Affect Care: None Current Living Situation: Spouse Current Living Situation Comment: Lives with fiance Feels Safe at Home: Yes Assistive Devices: Denture - Upper, Denture - Lower and Glasses Review of Systems Review of Systems: All systems reviewed & are unremarkable except as noted in HPI & below Physical Exam Physical Exam: RUE: Sensation to light touch entire arm and hand 90-100% in comparison to opposite side. 2+ radial pulse. Motor to Median, Radial, Ulnar, AIN, PIN intact. ++ tenderness to palpation upper arm. ++ Swelling and bruising about the shoulder. Results & Data Vital Signs (Past 12 Hours) Vital Signs Temp Pulse Pulse Resp BP BP Pulse Ox 01/28/23 08:34 36.8 C 86 18 138/91 99 01/28/23 06:29 01/28/23 06:21 37.2 C 88 18 154/99 H 100 01/28/23 06:21 37.2 C 88 18 154/99 H 100 01/28/23 06:21 01/28/23 05:30 93 H 14 128/89 97 01/28/23 05:00 92 H 18 143/87 H 98 01/28/23 04:30 93 H 14 153/97 H 98 01/28/23 04:08 95 H 01/28/23 03:30 95 H 18 149/96 H 98 01/28/23 02:30 90 28 H 146/93 H 98 01/28/23 02:00 88 24 155/103 H 100 01/28/23 02:00 89 23 100 01/28/23 01:52 12 100 01/28/23 01:51 56 L 01/28/23 01:31 146/94 H 01/28/23 01:31 89 28 H 94 01/28/23 01:30 87 23 95 01/28/23 01:00 91 H 18 163/98 H 01/28/23 00:31 90 23 155/101 H 01/28/23 00:30 94 H 23 01/28/23 00:15 94 H 25 H 153/106 H 94 01/28/23 00:15 01/28/23 00:14 94 H 27 H 94 01/28/23 00:14 153/106 H 01/28/23 00:13 95 H 01/28/23 00:04 36.8 C 100 H 20 154/101 H 98 Pulse Ox O2 Del Method O2 Del Method O2 Flow Rate O2 Flow Rate 01/28/23 08:34 Nasal Cannula 01/28/23 06:29 Nasal Cannula 4 01/28/23 06:21 Oxymask 4 01/28/23 06:21 Oxymask 4 01/28/23 06:21 100 Oxymask 4 01/28/23 05:30 Oxymask 4 01/28/23 05:00 Oxymask 01/28/23 04:30 Oxymask 4 01/28/23 04:08 01/28/23 03:30 Oxymask 4 01/28/23 02:30 Oxymask 4 01/28/23 02:00 Room Air 01/28/23 02:00 01/28/23 01:52 Oxymask 10 01/28/23 01:51 Nasal Cannula, Oxymask 4 01/28/23 01:31 01/28/23 01:31 01/28/23 01:30 01/28/23 01:00 01/28/23 00:31 01/28/23 00:30 01/28/23 00:15 Room Air 01/28/23 00:15 Room Air 01/28/23 00:14 01/28/23 00:14 01/28/23 00:13 01/28/23 00:04 Room Air Laboratory Results Laboratory Results WBC 6.46 K/ul (4.8-10.8) 01/28/23 00:36 RBC 4.29 M/uL (4.20-5.40) 01/28/23 00:36 Hgb 12.4 g/dl (12.0-16.0) 01/28/23 00:36 Hct 37.0 % (37.0-47.0) 01/28/23 00:36 MCV 86.2 fL (80.0-100.0) 01/28/23 00:36 MCH 28.9 pg (25.0-34.0) 01/28/23 00:36 MCHC 33.5 g/dL (32.0-36.0) 01/28/23 00:36 RDW Std Deviation 41.3 fL (36.4-46.3) 01/28/23 00:36 RDW Coeff of Marion 13.2 % (11.5-14.5) 01/28/23 00:36 Plt Count 326 K/uL (130-400) 01/28/23 00:36 MPV 9.4 fL (9.4-12.4) 01/28/23 00:36 Immature Gran % (Auto) 0.2 % 01/28/23 00:36 Neut % (Auto) 68.5 % 01/28/23 00:36 Lymph % (Auto) 21.2 % 01/28/23 00:36 Gibson % (Auto) 9.3 % 01/28/23 00:36 Eos % (Auto) 0.5 % 01/28/23 00:36 Baso % (Auto) 0.3 % 01/28/23 00:36 Neut # (Auto) 4.43 K/uL (1.40-6.50) 01/28/23 00:36 Lymph # (Auto) 1.37 K/uL (1.20-3.40) 01/28/23 00:36 Gibson # (Auto) 0.60 K/uL (0.11-0.59) H 01/28/23 00:36 Eos # (Auto) 0.03 K/uL (0.00-0.50) 01/28/23 00:36 Baso # (Auto) 0.02 K/uL (0.00-0.20) 01/28/23 00:36 Immature Gran # (Auto) 0.01 K/uL (0.01-0.20) 01/28/23 00:36 Sodium 138 mmol/L (136-145) 01/28/23 00:36 Potassium 3.4 mmol/L (3.5-5.1) L 01/28/23 00:36 Chloride 106 mmol/L (98-107) 01/28/23 00:36 Carbon Dioxide 25 mmol/L (21-32) 01/28/23 00:36 Anion Gap 7 (3-11) 01/28/23 00:36 BUN 17 mg/dl (6-23) 01/28/23 00:36 Creatinine 1.01 mg/dl (0.6-1.2) 01/28/23 00:36 Est Cr Clr Drug Dosing 68.6 ml/min 12 00:36 Est GFR ( Amer) 72.6 ml/min 01/28/23 00:36 Est GFR (Non-Af Amer) 62.6 ml/min 01/28/23 00:36 BUN/Creatinine Ratio 16.8 (10-20) 01/28/23 00:36 Glucose 116 mg/dl (70-99(Fasting)) H 01/28/23 00:36 Calcium 9.3 mg/dl (8.6-10.3) 01/28/23 00:36 Magnesium 1.9 mg/dl (1.7-2.4) 01/28/23 00:36 Total Bilirubin 0.3 mg/dl (0.2-1.0) 01/28/23 00:36 Direct Bilirubin 0.1 mg/dl (0-0.2) 01/28/23 00:36 AST 25 U/L (13-39) 01/28/23 00:36 ALT 26 U/L (7-52) 01/28/23 00:36 Alkaline Phosphatase 97 U/L (34-104) 01/28/23 00:36 Total Protein 8.4 gm/dl (6.0-8.3) H 01/28/23 00:36 Albumin 4.3 gm/dl (3.4-5.0) 01/28/23 00:36 Urine Color Yellow 01/28/23 08:05 Urine Appearance Clear (Clear) 01/28/23 08:05 Urine pH 6.0 (4.5-7.5) 01/28/23 08:05 Ur Specific Thornton 1.019 (1.000-1.030) 01/28/23 08:05 Urine Protein Negative (Negative) 01/28/23 08:05 Urine Glucose (UA) Negative (Negative) 01/28/23 08:05 Urine Ketones Negative (Negative) 01/28/23 08:05 Urine Blood Negative (Negative) 01/28/23 08:05 Urine Nitrite Negative (Negative) 01/28/23 08:05 Urine Bilirubin Negative (Negative) 01/28/23 08:05 Urine Urobilinogen Negative (Negative) 01/28/23 08:05 Ur Leukocyte Esterase Negative (Negative) 01/28/23 08:05 Phenytoin < 3.0 mcg/ml (10-20) L 01/28/23 00:36 SARS-CoV-2 (PCR) NEGATIVE (Negative) 01/28/23 08:[address] 01/28/23 00:33 Exam(s): CT C SPINE EXAM: CT Cervical Spine Without Intravenous Contrast CLINICAL HISTORY: Reason for exam: head injury, right arm/neck pain/paresthesias. TECHNIQUE: Axial computed tomography images of the cervical spine without intravenous contrast. CTDI is 37.01 mGy and DLP is 702.46 mGy-cm. Automated exposure control was utilized for the study. A dose lowering technique was utilized adhering to the principles of ALARA. COMPARISON: No relevant prior studies available. FINDINGS: Vertebrae: Unremarkable. No acute fracture. Discs/spinal canal/neural foramina: Moderate degenerative disc disease at the C4-5, C5-6, and C6-7 levels without significant bony spinal canal stenosis at any cervical level. Soft tissues: Unremarkable. IMPRESSION: No acute findings in the cervical spine. Electronically signed by: Evelio Villeda M.D. 01/28/23 02:38 AM Chest X-Ray 01/28/23 00:33 XR chest 1V portable HISTORY: trauma COMPARISON: Chest 06/03/2022. FINDINGS: Rotated study. There are low lung volumes. No pneumothorax. No pleural effusions. Right humeral head fracture/dislocation again noted. The heart is mildly enlarged. There is mild central pulmonary vascular congestion without overt edema. Bibasilar linear densities favor subsegmental atelectasis. IMPRESSION: 1. Rotated study. 2. Cardiomegaly and mild pulmonary vascular congestion. 3. A right humeral fracture/dislocation is again noted. ACT 112: Negative or not required by law. Electronically signed by: Braulio Vann M.D. 01/28/2023 7:[address] 01/28/23 00:33 Exam(s): CT HEAD Without Contrast EXAM: CT Head Without Intravenous Contrast CLINICAL HISTORY: Reason for exam: head injury, right arm/neck pain/paresthesias. TECHNIQUE: Axial computed tomography images of the head/brain without intravenous contrast. CTDI is 37.01 mGy and DLP is 702.46 mGy-cm. Automated exposure control was utilized for the study. A dose lowering technique was utilized adhering to the principles of ALARA. COMPARISON: 03/22/2022 FINDINGS: Brain: Heterotropic smith matter along the bilateral lateral ventricles unchanged from prior exam. No hemorrhage. No significant white matter disease. Ventricles: Unremarkable. No ventriculomegaly. Bones/joints: Unremarkable. No acute fracture. Soft tissues: Unremarkable. Sinuses: Unremarkable as visualized. No acute sinusitis. Mastoid air cells: Unremarkable as visualized. No mastoid effusion. IMPRESSION: No acute findings in the head/brain. Electronically signed by: Evelio Villeda M.D. 01/28/23 02:36 AM Humerus X-Ray 01/28/23 00:33 XR humerus RT 2V, XR shoulder RT min 2V routine CLINICAL HISTORY: right shoulder trauma. Right shoulder and arm pain. COMPARISON STUDY: None. FINDINGS: There is a comminuted and displaced fracture within the right humeral head/neck. The dominant humeral head fragment demonstrates anterior dislocation. The mid to distal shaft of the humerus is intact. There is soft tissue swelling within the right shoulder. The right clavicle is intact. Slightly distracted fracture within the coracoid process. IMPRESSION: 1. Fracture/dislocation of the comminuted and displaced right humeral head/neck fracture. 2. Slightly distracted fracture of the coracoid process. ACT 112: Negative or not required by law. Electronically signed by: Braulio Vann M.D. 01/28/2023 7:10 AM Shoulder X-Ray 01/28/23 00:33 XR humerus RT 2V, XR shoulder RT min 2V routine CLINICAL HISTORY: right shoulder trauma. Right shoulder and arm pain. COMPARISON STUDY: None. FINDINGS: There is a comminuted and displaced fracture within the right humeral head/neck. The dominant humeral head fragment demonstrates anterior dislocation. The mid to distal shaft of the humerus is intact. There is soft tissue swelling within the right shoulder. The right clavicle is intact. Slightly distracted fracture within the coracoid process. IMPRESSION: 1. Fracture/dislocation of the comminuted and displaced right humeral head/neck fracture. 2. Slightly distracted fracture of the coracoid process. ACT 112: Negative or not required by law. Electronically signed by: Braulio Vann M.D. 01/28/2023 7:[address] 01/28/23 01:04 Exam(s): CT RIGHT SHOULDER Without Contrast EXAM: CT Right Upper Extremity Without Intravenous Contrast, Shoulder CLINICAL HISTORY: Reason for exam: fracture/dislocation. TECHNIQUE: Axial computed tomography images of the right shoulder without intravenous contrast. CTDI is 19.67 mGy and DLP is 406.92 mGy-cm. Automated exposure control was utilized for the study. A dose lowering technique was utilized adhering to the principles of ALARA. COMPARISON: No relevant prior studies available. FINDINGS: Bones/joints: Severely comminuted right humeral neck fracture with anterior dislocation of the humeral head relative to the glenoid. Coracoid process fracture. Soft tissues: Unremarkable. Lung apices: Right base atelectasis. IMPRESSION: 1. Severely comminuted right humeral neck fracture with anterior dislocation of the humeral head relative to the glenoid. 2. Coracoid process fracture. Electronically signed by: Evelio Villeda M.D. 01/28/23 02:42 AM (1) Fracture of humeral head, right, closed Encounter type: initial encounter Qualified Code(s): S42.291A - Other displaced fracture of upper end of right humerus, initial encounter for closed fracture (2) Fracture of coracoid process of right scapula Encounter type: initial encounter Fracture alignment: displaced Fracture type: closed Qualified Code(s): S42.131A - Displaced fracture of coracoid process, right shoulder, initial encounter for closed fracture
[2023-01-28] MEDS ORDERED: PANTOprazole 40 MG in SYRINGE 0 ML IV SCH (11:00)
[2023-01-28 12:04] LABS: Base Excess VBG 0.8 mEq/L; HCO3 VBG 28 mmol/L; Oxygen Saturation VBG < 60.0 %; PCO2 VBG 56 mmHg (38-50); PO2 VBG 33 mmHg; pH VBG 7.31 (7.36-7.41)
--- NOTE | 2023-01-28 14:58 | Discharge Summary ---
Date of Service January 28, 2023 Admission HPI Per Admitting Provider The patient is a 57-year-old female with a past medical history including seizure disorder, Sjogren syndrome, hypertension, depression, B12 deficiency, vitamin D deficiency, Raynaud's disease, mixed connective tissue disease, depression with anxiety and migraine without aura. She reportedly had a tonic- clonic seizure of about 15 minutes duration as witnessed by her . Upon presentation to the emergency department, she was noted to have severe right shoulder swelling and complaining of severe right shoulder pain. X-rays and CT of right shoulder revealed a right humeral neck fracture with anterior disl ocation of the humeral head relative to the glenoid, and coracoid process fracture. The case had been discussed by the emergency department with orthopedic surgery, Dr. [facility], and possible transfer is being discussed with [facility] orthopedic surgery, however, patient will be need to be admitted to [facility] for pain control until appropriate transfer can be arranged. The patient reports not having had a seizure for the past 3 years prior to this evening Discharge Data Allergies Allergy/AdvReac Type Severity Reaction Status Date / Time erythromycin base Allergy Intermediate RASH Verified 01/28/23 01:35 Consultations 01/28/23 04:03 Consult Orthopedic Surgery Routine ED Decision to Admit Stat 01/28/23 13:19 Burn CD for patient Stat Ordered Studies 01/28/23 00:33 CT cervical spine wo con Stat CT head/brain wo con Stat 01/28/23 01:04 CT shoulder RT wo con Stat Discharge Plan Discharge Items Reason For Visit: RIGHT HUMERAL NECK FX, CORACOID PROCESS FX, SEIZUR Follow-up/Referrals: Elan Beauchamp DO [Primary Care Provider] - Medications and DC Order Prescriptions: No Action lamotrigine 150 mg tablet 300 mg PO BID 90 Days Qty: 360 1RF lamotrigine 25 mg tablet,disintegrating 25 mg PO DAILY PRN (Reason: aura, anxiety) 30 Days Qty: 30 5RF cyanocobalamin (vitamin B-12) 1,000 mcg/mL solution 1,000 mcg IM MONTHLY Qty: 1 11RF (DME) BD Eclipse Luer-Navarro 3 mL 23 x 1" syringe See Rx Instructions .Route Qty: 4 3RF Rx Instructions: As directed for use with B12 injections Emgality Pen 120 mg/mL pen injector 120 mg subcut MONTHLY Qty: 1 5RF Rx Instructions: TAKES ON THE 15 OF THE MONTH Nurtec ODT 75 mg tablet,disintegrating 75 mg PO DIRECTED PRN (Reason: Migraine Headache) 0RF baclofen 10 mg tablet 10 mg PO BID PRN (Reason: muscle spasm) Qty: 60 3RF losartan-hydrochlorothiazide 50-12.5 mg tablet 1 tab PO QAM multivitamin [Daily Multi-Vitamin] Tablet 1 tab PO QAM oxcarbazepine [Trileptal] 300 mg tablet 300 mg PO BID Qty: 60 8RF gabapentin 300 mg capsule 300 mg PO TID Rx Instructions: 1 cap po TID; ondansetron 4 mg tablet,disintegrating 4 mg translingual TID PRN (Reason: nausea and vomiting) sertraline 100 mg tablet 100 mg PO QAM lorazepam 0.5 mg tablet 0.5 mg PO DAILY PRN (Reason: Anxiety) omeprazole 20 mg capsule,delayed release(DR/EC) 20 mg PO QAM Xeljanz XR 11 mg tablet extended release 24 hr 11 mg PO HS hydrocodone-acetaminophen 7.5-325 mg tablet 1 tab PO QID PRN (Reason: Pain) ibuprofen 600 mg tablet 600 mg PO QID PRN (Reason: Pain) Admission Data Admit Date/Time: 01/28/23 04:50 Attending Provider: Leon Valenzuela Admit Provider: Ugo Lacy Primary Care Provider: Elan Beauchamp Other Providers: Ugo Lacy; Matty [facility]ila Coding
[2023-01-28] MEDS ORDERED: Nursing to Pharmacy Communication SCH (15:00)
[2023-01-28 15:18] LABS: Base Excess VBG -1.1 mEq/L; HCO3 VBG 25 mmol/L; Oxygen Saturation VBG 76.8 %; PCO2 VBG 48 mmHg (38-50); PO2 VBG 45 mmHg; pH VBG 7.33 (7.36-7.41)
[2023-01-28] MEDS: NSS + 20MEQ KCL 20 MEQ/1,000 ML BAG IV SCH (15:28)
[2023-01-28] MEDS ORDERED: HYDROmorphone INJ 0.5 MG/0.5 ML SYR IV PRN (19:18)
--- NOTE | 2023-01-28 19:20 | Hospitalist Progress Note ---
Date of Service January 28, 2023 Assessment & Plan (1) Acute respiratory acidosis: Plan: CO2 narcosis in the setting of known but untreated VICK. Copious narcotics have been used from the time of ER arrival. BIPAP applied this afternoon after VBG showed acute resp acidosis. She tolerated BIPAP well and serial VBGs improved then normalized. Will advise nightly use of BIPAP. REDUCE dilaudid to 0.25mg prn. Try using PO narcotics first for R shoulder pain - oxycodone ordered. Tylenol 1gm TID scheduled as well. CXR at admission wnl. COVID test obtained - negative. (2) Seizure: Plan: Breakthrough seizure at home leading to a fall and severe injury with fracture of the right humerus. No seizures since admission. Pt is compliant with seizure meds by report. Cont seizure precautions. Dr Ann from neurology was consulted; he advised increase in Trileptal to 600mg at HS (from 300mg). Cont AM dose of 300mg as previous. Cont other chronic anti-seizures meds as previous w/o dose changes. (3) Epilepsy: Plan: Chronically on gabapentin 300mg TID, lamictal 300mg BID, Trileptal 300mg BID Cont these; adjust Trileptal as above (4) Acute metabolic encephalopathy: Plan: ua not suggestive of UTI COVID negative no pneumonia on cxr confusion 2nd to #1 above mentation improved with CO2 improving (5) Fracture of coracoid process of right scapula: Plan: noted (6) Dislocation of shoulder, right, closed: Plan: noted 2nd to fall/seizure (7) Fracture of humeral head, right, closed: Plan: severe, complex fracture appreciate ortho consult by [facility], Dr Avila plan - transfer to [facility] for ortho consultation Dr Angel Pace, [facility] in [place], discussed the case with Dr Avila by phone pain control - try oxycodone prn first and then dilaudid if pain is refractory REDUCE the dilaudid dose from 1mg to 0.25mg and space out the frequency tylenol 1gm TID scheduled ice prn (8) Vitamin D deficiency: Plan: 25-OH vit D level 31 in Oct 2022 (9) Hypokalemia: Plan: minimal level 3.4 2nd HCTZ replace (give KCL in fluids) repeat BMP am mag level noted to be wnl (10) Raynauds disease: Plan: noted (11) Sjogren's disease: Plan: noted (12) Mixed connective tissue disease: Plan: is on chronic Xeljanz XR -- hold this for now (13) Hypertension: Plan: holding HCTZ-losartan despite holding her BPs are acceptable (14) Depression with anxiety: Plan: cont home meds (15) Migraine without aura, not intractable, without status migrainosus: Plan: no headache at this time (16) VICK (obstructive sleep apnea): Plan: known dx severe by report but is not on NIPPV at home see #1 above Plan DVT proph - SCDs for now given the severe bruising/etc of R arm updated at bedside son updated at bedside care d/w [facility] (Dr Lisa Ledbetter - hospitalist at [facility]) care d/w Dr Avila - [facility] care d/w Dr Ann - [facility] Neuro very complex care coordination - total time over several visits, multiple phone calls to [facility], care coordination with local providers, etc - 100 minutes of note - due to #1 will hold off on transfer to [facility] tonight; plan transfer tomorrow am I will call [facility] 01/29/23 and give them a clinical update at that time Admission and Anticipated Discharge Date Admission Date: January 28, 2023 Subjective complex care today this am I spoke with Dr Avila from [facility] - he had met with pt & her - options for care for the R shoulder Fx discussed family opting for transfer to [facility] Dr Avila had discussed Mrs Silverman's care with Dr Angel Pace, ortho at [facility] after I spoke with Dr Avila I came to the bedside to see the patient she was resting in bed with ice on the R shoulder she was VERY sleepy, often falling asleep in mid-sentence was present pt reported she had had a poor night due to pain and lack of sleep she has received copious amounts of narcotics since ER presentation (fentanyl x 2, followed by several doses of IV dilaudid) no seizures by report patient denied any recent illnesses or fevers she admitted to poor sleep over the last week due to the stress/anxiety of the holiday season is compliant with seizure meds after my visit I checked a VBG and this showed acute respiratory acidosis with pCO2 in the mid 50s BIPAP ordered about the same time I called and spoke with the transfer center at [facility] Mrs Silverman was accepted in transfer to [facility]; accepting - Dr Lisa Ledbetter through the afternoon I kept the BIPAP on the patient serial VBGs showed improving resp acidosis by dinner-time she was mentating better and awake/alert enough to safely eat dinner pt reports being dx with VICK in the past severe by report never has used BIPAP at home Review of Systems Review of Systems: gen - no fevers or chills; very tired/fatigued cv - no chest pain, no orthopnea pulm - no cough or dyspnea; staff report O2 desats with sleeping along with snoring GI - no abd pain or N/V - dewitt placed by nursing staff neuro - no seizure since admission; no headaches Physical Exam Physical Exam: gen - sleepy, borderline lethargic - falling asleep in the middle of the conversation mouth - MMM neck - no JVD heart - RRR, s1 s2, no murmur lungs - CTA b/l, no rales abd - soft NT ND BS+ ext - no edema of ankles, pulses 2+ b/l (feet) musculo - significant swelling, deformity, ecchymoses of right upper arm & right shoulder; LUE and b/l legs without deformity Results & Data Results & Data Vital Signs (Past 12 Hours) Vital Signs Temp Pulse Pulse Resp BP Pulse Ox O2 Del Method 01/28/23 15:24 85 01/28/23 15:22 37.5 C 93 H 18 130/84 95 BiPAP 01/28/23 12:43 88 25 H 98 01/28/23 11:59 37.1 C 86 18 130/87 100 Nasal Cannula 01/28/23 10:00 90 01/28/23 10:00 Nasal Cannula 01/28/23 08:34 36.8 C 86 18 138/91 99 Nasal Cannula O2 Flow Rate FiO2 01/28/23 15:24 01/28/23 15:22 01/28/23 12:43 21 01/28/23 11:59 01/28/23 10:00 01/28/23 10:00 4 01/28/23 08:34 Laboratory Results Laboratory Results - last 24 hr 01/28/23 01/28/23 01/28/23 00:36 08:05 08:30 VBG pH VBG pCO2 VBG pO2 VBG HCO3 VBG O2 Saturation VBG Base Excess Magnesium 1.9 Urine Color Yellow Urine Appearance Clear Urine pH 6.0 Ur Specific [place] 1.019 Urine Protein Negative Urine Glucose (UA) Negative Urine Ketones Negative Urine Blood Negative Urine Nitrite Negative Urine Bilirubin Negative Urine Urobilinogen Negative Ur Leukocyte Esterase Negative SARS-CoV-2 (PCR) NEGATIVE 01/28/23 01/28/23 01/28/23 11:48 15:10 19:30 VBG pH 7.31 L 7.33 L 7.35 L VBG pCO2 56 H 48 47 VBG pO2 33 45 48 VBG HCO3 28 25 26 VBG O2 Saturation < 60.0 76.8 84.0 VBG Base Excess 0.8 -1.1 -0.2 Magnesium Urine Color Urine Appearance Urine pH Ur Specific [place] Urine Protein Urine Glucose (UA) Urine Ketones Urine Blood Urine Nitrite Urine Bilirubin Urine Urobilinogen Ur Leukocyte Esterase SARS-CoV-2 (PCR) PG Care Time/CCT Total # of Minutes Spent Total Time Spent with Patient: Total time spent is greater than 50% in coordination of care (as documented) at patient's floor/unit and/or counseling patient: Prolonged Care Time Prolonged Care Time: Yes Total Prolonged Care Time: 100 Coding Level of Care Code 18764 SUB INP/OBS CARE 3/50MIN (25 - SIGNIFICANT, SEPARATELY IDENTIFIABLE ) Diagnoses Acute respiratory acidosis J96.02 Seizure R56.9 Epilepsy G40.909 Acute metabolic encephalopathy G93.41 Fracture of coracoid process of right scapula S42.131A Encounter type: initial encounter Fracture alignment: displaced Fracture type: closed Dislocation of shoulder, right, closed S43.004A Encounter type: initial encounter Fracture of humeral head, right, closed S42.291A Encounter type: initial encounter Vitamin D deficiency E55.9 Hypokalemia E87.6 Raynauds disease I73.00 Sjogren's disease M35.00 Mixed connective tissue disease M35.1 Hypertension I10 Depression with anxiety F41.8 Migraine without aura, not intractable, without status migrainosus G43.009 VICK (obstructive sleep apnea) G47.33 Additional Codes Prolonged Care Time - Prolonged Care Time: Yes ([id number]) (5) Fracture of coracoid process of right scapula Encounter type: initial encounter Fracture alignment: displaced Fracture type: closed Qualified Code(s): S42.131A - Displaced fracture of coracoid process, right shoulder, initial encounter for closed fracture (6) Dislocation of shoulder, right, closed Encounter type: initial encounter Qualified Code(s): S43.004A - Unspecified dislocation of right shoulder joint, initial encounter (7) Fracture of humeral head, right, closed Encounter type: initial encounter Qualified Code(s): S42.291A - Other displ aced fracture of upper end of right humerus, initial encounter for closed fracture
[2023-01-28 19:36] LABS: Base Excess VBG -0.2 mEq/L; HCO3 VBG 26 mmol/L; PCO2 VBG 47 mmHg (38-50); PO2 VBG 48 mmHg; pH VBG 7.35 (7.36-7.41)
[2023-01-28] MEDS: oxyCODONE HCL IR 5 MG TAB (IMMEDIATE RELEASE) PO PRN (20:02)
[2023-01-28] MEDS: ACETAMINOPHEN 500 MG TAB PO SCH (20:03)
[2023-01-29] MEDS: oxyCODONE HCL IR 5 MG TAB (IMMEDIATE RELEASE) PO PRN ×3 (01:52→18:21)
[2023-01-29] MEDS: NSS + 20MEQ KCL 20 MEQ/1,000 ML BAG IV SCH ×2 (04:01→17:01)
[2023-01-29 08:03] LABS: Base Excess VBG -0.4 mEq/L; HCO3 VBG 25 mmol/L; Oxygen Saturation VBG 97.2 %; PCO2 VBG 45 mmHg (38-50); PO2 VBG 77 mmHg; pH VBG 7.36 (7.36-7.41)
[2023-01-29] MEDS: GABAPENTIN 300 MG CAP PO SCH ×2 (08:28→14:21)
[2023-01-29] MEDS: lamoTRIgine 100 MG TAB PO SCH (08:28)
[2023-01-29] MEDS: POTASSIUM CHLORIDE CRTAB 20 MEQ TABCR PO SCH (08:28)
[2023-01-29] MEDS: ACETAMINOPHEN 500 MG TAB PO SCH ×2 (08:28→14:21)
[2023-01-29] MEDS: SERTRALINE HCL 100 MG TABLET PO SCH (08:28)
[2023-01-29] MEDS ORDERED: OXcarbazepine 150 MG TABLET PO SCH (09:00)
[2023-01-29 09:08] LABS: BUN Creatinine Ratio 21.5 (10-20); Calcium 8.6 mg/dl (8.6-10.3); Creatinine Clr Calc Pharmacy 110.1 ml/min; Est GFR (African American) 115.8 ml/min; Est GFR (Non-African American) 99.9 ml/min; Potassium 4.5 mmol/L (3.5-5.1)
[2023-01-29] MEDS ORDERED: KETOROLAC 30 MG/ML VIAL IV PRN (09:30)
[2023-01-29] MEDS ORDERED: LORazepam 0.5 MG TAB PO STA (09:30)
[2023-01-29 10:23] LABS: Basophils # (auto) 0.01 K/uL (0.00-0.20); Basophils % (auto) 0.2 %; Eosinophils # (auto) 0.03 K/uL (0.00-0.50); Eosinophils % (auto) 0.6 %; Hematocrit (blood only) 30.9 % (37.0-47.0); Hemoglobin 9.8 g/dl (12.0-16.0); Immature Granulocytes # (auto) 0.02 K/uL (0.01-0.20); Immature Granulocytes % (auto) 0.4 %; Lymphocytes # (auto) 1.18 K/uL (1.20-3.40); Lymphocytes % (auto) 23.4 %; Mean Corpuscular Hemoglobin 28.5 pg (25.0-34.0); Mean Corpuscular Hgb Conc 31.7 g/dL (32.0-36.0); Mean Corpuscular Volume 89.8 fL (80.0-100.0); Mean Platelet Volume 9.5 fL (9.4-12.4); Monocytes # (auto) 0.59 K/uL (0.11-0.59); Monocytes % (auto) 11.7 %; Neutrophils # (auto) 3.22 K/uL (1.40-6.50); Neutrophils % (auto) 63.7 %; Platelet Count 231 K/uL (130-400); RBC Morphology Unremarkable; RDW Coefficient of Variation 13.2 % (11.5-14.5); RDW Standard Deviation 43.1 fL (36.4-46.3); Red Blood Count 3.44 M/uL (4.20-5.40); White Blood Count 5.05 K/ul (4.8-10.8)
[2023-01-29] MEDS ORDERED: PANTOprazole 40 MG TAB PO SCH (11:00)
--- NOTE | 2023-01-29 11:19 | Orthopedic Progress Note ---
Date of Service January 29, 2023 Assessment & Plan (1) Fracture of humeral head, right, closed: Plan: IMPRESSION: Closed, comminuted fracture dislocation right proximal humerus and minimally displaced coracoid fracture. PLAN: Patient has been admitted to Hospitalist service. Discussed the complicated nature of the fractures and that she needs a higher level of care. Plan transfer to [place] for ORIF later today. Continue care per hospitalist service, with RICE, sling for comfort, and pain control. (2) Fracture of coracoid process of right scapula: Plan: See above Admission and Anticipated Discharge Date Admission Date: January 28, 2023 Subjective Right shoulder pain Physical Exam Physical Exam: RUE: Sensation to light touch entire arm and hand 90-100% in comparison to opposite side. 2+ radial pulse. Motor to Median, Radial, Ulnar, AIN, PIN intact. ++ tenderness to palpation upper arm. ++ Swelling and bruising about the shoulder. Results & Data Vital Signs (Past 12 Hours) Vital Signs Temp Pulse Pulse Resp BP Pulse Ox O2 Del Method 01/29/23 08:24 37.1 C 90 18 136/87 97 Room Air 01/29/23 08:00 96 H 01/29/23 08:00 Nasal Cannula 01/29/23 03:00 37.3 C 88 16 124/78 92 BiPAP 01/29/23 02:59 85 23 93 O2 Flow Rate FiO2 01/29/23 08:24 01/29/23 08:00 01/29/23 08:00 4 01/29/23 03:00 01/29/23 02:59 21 (1) Fracture of humeral head, right, closed Encounter type: initial encounter Qualified Code(s): S42.291A - Other displaced fracture of upper end of right humerus, initial encounter for closed fracture (2) Fracture of coracoid process of right scapula Encounter type: initial encounter Fracture alignment: displaced Fracture type: closed Qualified Code(s): S42.131A - Displaced fracture of coracoid process, right shoulder, initial encounter for closed fracture
== END 2023-01-29 19:39 | disposition short-term general hospital (02) | DRG 562 ==
LOC: ED → 2E 04:50 → SUATTDRO 04:50 → 2E 05:40